=== PATIENT | female | born 1985 | race Caucasian/White ===

== ENCOUNTER 2021-02-12 02:53 | Emergency (ER) | payer SELFPAY ==
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
[2021-02-12 04:41] VITALS: TEMP 98.1
[2021-02-12 04:42] VITALS: BP 143/91; O2SAT 99
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
== END 2021-02-12 04:34 | disposition home or self-care (01) ==
LOC: ER 02:53
DX: S02.2XXA Fracture of nasal bones, initial encounter for closed fracture (principal); Y04.2XXA Assault by strike against or bumped into by another person, initial encounter; Z88.1 Allergy status to other antibiotic agents
CPT/HCPCS: 70450; 70486; 76377; 99284

== ENCOUNTER 2022-08-11 18:15 | Emergency (ER) | payer OTHER ==
--- OUTSIDE RECORDS SUMMARY | 2022-08-11 18:21 | XMS REPORT | Continuity of Care Document ---
:1985 Author Organization [facility] t Address [address] [facility] [place] [address] Care Team Providers Name Role Phone Patricia Cardenas Primary Care Physician [phone] PATRICIA BOURNE Attending Clinician Unavailable Valerie Burr Attending Clinician Unavailable JONN VASQUEZ Attending Clinician Unavailable Maria Teresa Garcia DO Attending Clinician Jonn Vasquez MD Attending Clinician Patricia Cardenas Attending Clinician [phone] Prosper Christiansen MD Attending Clinician Doctor Unassigned, [place] [employer] Attending Clinician Unavailable LILIANA BELL Attending Clinician Unavailable Ultrasound, Ang-M[facility] Attending Clinician Unavailable Liliana Bell MD Attending Clinician [phone] ABBY AKBAR Attending Clinician Unavailable Abby Akbar MD Attending Clinician JAISON LEO Attending Clinician Unavailable Jaison Leo DO Attending Clinician Britney Pritchett CNM Attending Clinician Only, Ang Db Test Attending Clinician Unavailable Ebragwendolyn MARKET RESEARCH ASSOCIATE, Rania Attending Clinician FABI SULLIVAN Attending Clinician Unavailable Provider, [facility] Attending Clinician Unavailable Chris MARKET RESEARCH ASSOCIATE, Adrianna Attending Clinician CHRIS, ADRIANNA Attending Clinician Unavailable Cherrie TORREZ, Neris Tate Attending Clinician Unavailable Geovanna Arambula MD Attending Clinician GEOVANNA ARAMBULA Attending Clinician Unavailable CHIRAG GARCIA Attending Clinician Unavailable AURE DELGADILLO Attending Clinician Unavailable JACKSON TAN Attending Clinician Unavailable JACKSON TAN Attending Clinician Unavailable JONN VASQUEZ Admitting Clinician Unavailable Jonn Vasquez MD Admitting Clinician ABBY AKBAR Admitting Clinician Unavailable Abby Akbar MD Admitting Clinician JAISON LEO Admitting Clinician Unavailable AURE DELGADILLO Admitting Clinician Unavailable Payers Payer Name Policy Type Policy Number Effective Date Expiration Date Deo garcia [employer] [id number] 2021 OUT OF NETWORK 00:00:00 [place] [facility] [id number] 2022 00:00:00 [facility] [id number] 2022 SHELTER 00:00:00 [facility] [id number] 2018 MEDICAID 00:00:00 Problems Condition Condition Condition Status Onset Resolution Last Treating Co mments Source Name Details Category Date Date Treatment Clinician Date Abnormal Abnormal Disease Active Overview: Un james quad quad 1-09 Formattin ity of screen screen 00:00: g of this [place] 00 note Medical might be Branch different from the original. pendign detailed usg and genetics History of History of Disease Active 2021-06 U nivers 2-09 ity of 00:00: [place] 00 Medical Branch Inmate in Inmate in Disease Active 2021-06 Uni vers correction correction 07-11 it y of al al 00:00: [place] facility facility 00 Medica l Branch Anemia of Anemia of Disease Active Uni vers mother in mother in 9-10 [place]y of , , [place] antepartum antepartum 00 Me dical Branch Disease Active U nivers care and care and 9-10 ity of examinatio examinatio [place] 00 Medical immediatel immediatel Br anch y after y after delivery delivery History of History of Disease Active U nivers pre-eclamp pre-eclamp 8-11 it y of deven deven 00:00: [place] 00 Medical Branch Preeclamps Preeclamps Disease Active U nivers ia ia 8-11 ity of 00:00: [place] 00 Medical Branch Multiparit Multiparit Disease Active 2018- U nivers y y 7-16 ity of 00:00: [place] 00 Medical Branch Abnormal Abnormal Disease Active Overview: Un james maternal maternal 11-18 Formattin ity of glucose glucose 00:00: g [...] the original. tolac 73.8% (C.I. 69.5%, 77.6%) History of History of Disease Active Overview : Univers 6-04 Formattin ity of section section 00:00: g of this [place] 00 note Medical might be Branch different from the original. X 1 with last baby Short Short Disease Active Univers interval interval 6-04 ity of between between 00:00: [place] pregnancie pregnancie 00 Me dical s s Branch affecting affecting in second in second trimester, trimester, antepartum antepartum Circumvall Circumvall Disease Active Overview : Univers ate ate 4-19 Formattin ity of placenta placenta 00:00: g of this [place] 00 note Medical might be Branch different from the original. Prior ASCUS with ASCUS with Disease Active Overview : Univers positive positive - Formattin ity of high risk high risk 00:00: g of this [place] HPV HPV 00 note Medical cervical cervical might be Bran ch different from the original. Occurred 04/17/17 per external records (referred for colpo on 07/14/17) ASCUS with ASCUS with Disease Active Overview : Univers positive positive -12 Formattin ity of high risk high risk 00:00: g of this [place] HPV HPV 00 note Medical cervical cervical might be Bran ch different from the original. Occurred 04/17/17 per external records (referred for colpo on 07/14/17) Supervisio Supervisio Disease Active U nivers n of high n of high 1-30 ity of risk risk 00:00: [place] , , 00 Me dical antepartum antepartum Br anch Obesity in Obesity in Disease Active U nivers 1-30 ity of 00:00: [place] [address] Medical Branch Tobacco Tobacco Disease Active Univers use during use during 1-30 it y of , , [place] antepartum antepartum 00 Me dical Branch Generalize Generalize Disease Active U nivers d anxiety d anxiety 1-30 ity of disorder disorder 00:00: [place] [address] Medical Branch Bipolar 1 Bipolar 1 Disease Active Uni vers disorder disorder 1-30 ity of 00:00: [address] Branch No known No known Disease Unive rs active active ity of problems problems [facility] Allergies, Adverse Reactions, Alerts Allergy Allergy Status Severity Reaction(s) Onset Inactive Treating Comm ents Source Name Type Date Date Clinician SULFAMET DRUG Active Rash 2021-06 Univers HOXAZOLE 2-09 ity of -TRIMETH 00:00: [place] OPRIM 00 Medical Branch Sulfamet Propensi Active Rash 2021-06 Univer s hoxazole ty to 2-09 ity of -Trimeth adverse 00:00: [place] oprim reaction 00 Medical s Branch Sulfa Propensi Active Rash Univers (Sulfona ty to 9-10 ity of mide adverse 00:00: [place] Antibiot reaction 00 Medica l ics) s Branch SULFA Drug Active Rash Univers (SULFONA Class 9-10 ity of MIDE 00:00: [place] ANTIBIOT 00 Medical ICS) Branch Sulfa Propensi Active Rash Univers (Sulfona ty to 9-10 ity of mide adverse 00:00: [place] Antibiot reaction 00 Medica l ics) s Branch NO KNOWN Drug Active Univers ALLERGIE Class ity of S [facility] Social History Social Habit Start Date Stop Date Quantity Comments Source ASSERTION 2022-03-20 [facility] 00:00:00 [facility] History of Cigarette Smoker Universi ty of tobacco use [facility] Exposure to 2022-07-23 2022-08-02 Not sure [facility] SARS-CoV-2 00:00:00 10:07:00 [facility] (event) [place] Alcohol intake 2022-05-10 2022-05-10 Ex-drinker [facility] 00:00:00 00:00:00 (finding) [facility] Tobacco Comment 2022-05-10 2022-05-10 Stopped Un iversity of 00:00:00 00:00:00 [facility] Tobacco use and 2022-05-10 2022-05-10 Former smokeless Uni versity of exposure 00:00:00 00:00:00 tobacco user [facility] Sex Assigned At [birth year] Universit y of 00:00:00 00:00:00 [facility] Smoking Status Start Date Stop Date Source Ex-smoker 2022-05-10 00:00:00 2022-05-10 00:00:[facility] Current every day 2015[facility]09[facility]21 [facility] Medications Ordered Filled Start Stop Current Ordering Indication Dosage Frequency Signature Comments Components Source Medication Medication Date Date Medication? Clinician (SIG) Name Name fluconazole 2022- No 200mg 200 mg, U nivers (DIFLUCAN) 08-08 Oral, ity of tablet 200 23:30: 23:29 ONCE, 1 [place] mg 00 :00 dose, On Medical Natalie 08/08/22 Branch at 1730, CAITLYN
Re ason for Anti-Infec tive: Documented Infection< br>Documen noemi Infection Site: Urine
D uration of Therapy: Other (see Comments) Nitrofurant 2022- No 100mg 100 mg, U nivers oin&Nit. 08-08 Oral, ity of Macrocryst 23:30: 23:29 ONCE, 1 [place] (MACROBID) 00 :00 dose, On Medic al 100 mg Natalie 08/08/22 Branch capsule 100 at 1730, mg Routine
Reason for Anti-Infec tive: Documented Infection< br>Documen noemi Infection Site: Urine
D uration of Therapy: Other (see Comments) acetaminoph 2022- No 650mg 650 mg, U nivers en 08-08- Oral, ity of (TYLENOL) 21:15: 20:25 ONCE, 1 [place] tablet 650 00 :00 dose, On Medic al mg Natalie 08/08/22 Branch at 1515, Routine Nitrofurant 2022-0 Yes [id number] 100mg Take 1 Univers oin&Nit. 3-09 capsule by ity o f Macrocryst 00:00: mouth in [place] 100 mg 00 the Medical capsule morning Branch and 1 capsule in the evening. Nitrofurant 0 Yes [id number] 100mg Take 1 Univers oin&Nit. 3-09 capsule by ity o f Macrocryst 00:00: mouth in [place] 100 mg 00 the Medical capsule morning Branch and 1 capsule in the evening. acetaminoph 2022- No 650mg 650 mg, U nivers en 06-25 Oral, ity of (TYLENOL) 06:15: 05:22 ONCE, 1 [place] tablet 650 00 :00 dose, On Medic al mg e Branch 06/25/22 at 0015, Routine cefTRIAXone Yes 1000mg 1,000 mg, Univers (ROCEPHIN) 06-06 Slow IV ity of injection 20:00: [place] Q24H [place] 1,000 mg 00 ABX, First Medic al dose on Branch Natalie 06/06/22 at 1400, Until Discontinu ed, CAITLNY<br&gt ;Reason for Anti-Infec tive: Empiric Therapy for Suspected Infection acetaminoph 2022- No 1000mg 1,000 mg, Univers en 06-06 Oral, ity of (TYLENOL) 18:45: 18:39 ONCE, 1 [place] tablet 00 :00 dose, On Medical 1,000 mg Natalie 06/06/22 Branc h at 1245, CAITLYN NaCl 0.9% 2022- No 1000mL at 999 Uni vers (NS) bolus 06-06- mL/hr, ity of infusion 17:15: 19:40 1,000 mL, [place] 1,000 mL 00 :00 IV Medical Infusion, Branch ONCE, 1 dose, On Natalie 06/06/22 at 1115, STAT cephALEXin 2021-06- Yes [id number] 500mg Take 1 Univers (KEFLEX) 2-13 12-24 capsule by ity of 500 mg 00:00: 05:59 mouth 4 [place] capsule 00 :00 (four) Medical times Branch daily for 10 days. cephALEXin 2021-06- Yes [id number] 500mg Take 1 Univers (KEFLEX) 2-13 12-24 capsule by ity of 500 mg 00:00: 05:59 mouth 4 [place] capsule 00 :00 (four) Medical times Branch daily for 10 days. ampicillin 2021-06- Yes [id number] 500mg Take 1 Univers 500 mg 2-12 12-23 capsule by ity of capsule 00:00: 05:59 mouth 4 [place] 00 :00 (four) Medical times Branch daily for 10 days. ampicillin 2021-06- Yes [id number] 500mg Take 1 Univers 500 mg 2-12 12-23 capsule by ity of capsule 00:00: 05:59 mouth 4 [place] 00 :00 (four) Medical times Branch daily for 10 days. ampicillin 2021-06- Yes [id number] 500mg Take 1 Univers 500 mg 2-12 12-23 capsule by ity of capsule 00:00: 05:59 mouth 4 [place] 00 :00 (four) Medical times Branch daily for 10 days. ampicillin 2021-06- Yes [id number] 500mg Take 1 Univers 500 mg 2-12 12-23 capsule by ity of capsule 00:00: 05:59 mouth 4 [place] 00 :00 (four) Medical times Branch daily for 10 days. ampicillin 2021-06- No [id number] 500mg Take 1 Univers 500 mg 2-12 12-13 capsule by ity of capsule 00:00: 00:00 mouth 4 [place] 00 :00 (four) Medical times Branch daily for 10 days. ampicillin 2021-06- No [id number] 500mg Take 1 Univers 500 mg 2-12 12-13 capsule by ity of capsule 00:00: 00:00 mouth 4 [place] 00 :00 (four) Medical times Branch daily for 10 days. ampicillin 2021-06- No [id number] 500mg Take 1 Univers 500 mg 07-14-13 capsule by ity of capsule 00:00: 00:00 mouth 4 [place] 00 :00 (four) Medical times Branch daily for 10 days. No known 2021-06 No No known Unive rs medications 2-09 medication it y of 10:10: s [place] 30 Medical Branch PNV 67-iron 2021-06 Yes [id number] 1{each} Take 1 Univers ps-folate 2-09 Each by ity of no.1-dha 00:00: mouth [place] (VITAFOL 00 daily. Medical ULTRA) 29 Branch mg iron- 1 mg-200 mg Cap PNV 67-iron 2021-06 Yes [id number] 1{each} Take 1 Univers ps-folate 2-09 Each by ity of no.1-dha 00:00: mouth [place] (VITAFOL 00 daily. Medical ULTRA) 29 Branch mg iron- 1 mg-200 mg Cap PNV 67-iron 2021-06 Yes [id number] 1{each} Take 1 Univers ps-folate 2-09 Each by ity of no.1-dha 00:00: mouth [place] (VITAFOL 00 daily. Medical ULTRA) 29 Branch mg iron- 1 mg-200 mg Cap PNV 67-iron 2021-06 Yes [id number] 1{each} Take 1 Univers ps-folate 2-09 Each by ity of no.1-dha 00:00: mouth [place] (VITAFOL 00 daily. Medical ULTRA) 29 Branch mg iron- 1 mg-200 mg Cap PNV 67-iron 2021-06 Yes [id number] 1{each} Take 1 Univers ps-folate 2-09 Each by ity of no.1-dha 00:00: mouth [place] (VITAFOL 00 daily. Medical ULTRA) 29 Branch mg iron- 1 mg-200 mg Cap PNV 67-iron 2021-06 Yes [id number] 1{each} Take 1 Univers ps-folate 2-09 Each by ity of no.1-dha 00:00: mouth [place] (VITAFOL 00 daily. Medical ULTRA) 29 Branch mg iron- 1 mg-200 mg Cap PNV 67-iron 2021-06 Yes [id number] 1{each} Take 1 Univers ps-folate 2-09 Each by ity of no.1-dha 00:00: mouth [place] (VITAFOL 00 daily. Medical ULTRA) 29 Branch mg iron- 1 mg-200 mg Cap PNV 67-iron 2021-06 Yes [id number] 1{each} Take 1 Univers ps-folate 2-09 Each by ity of no.1-dha 00:00: mouth [place] (VITAFOL 00 daily. Medical ULTRA) 29 Branch mg iron- 1 mg-200 mg Cap PNV 67-iron 2021-06 Yes [id number] 1{each} Take 1 Univers ps-folate 2-09 Each by ity of no.1-dha 00:00: mouth [place] (VITAFOL 00 daily. Medical ULTRA) 29 Branch mg iron- 1 mg-200 mg Cap PNV 67-iron 2021-06 Yes [id number] 1{each} Take 1 Univers ps-folate 2-09 Each by ity of no.1-dha 00:00: mouth [place] (VITAFOL 00 daily. Medical ULTRA) 29 Branch mg iron- 1 mg-200 mg Cap PNV 67-iron 2021-06 Yes [id number] 1{each} Take 1 Univers ps-folate 2-09 Each by ity of no.1-dha 00:00: mouth [place] (VITAFOL 00 daily. Medical ULTRA) 29 Branch mg iron- 1 mg-200 mg Cap PNV 67-iron 2021-06 Yes [id number] 1{each} Take 1 Univers ps-folate 2-09 Each by ity of no.1-dha 00:00: mouth [place] (VITAFOL 00 daily. Medical ULTRA) 29 Branch mg iron- 1 mg-200 mg Cap PNV 67-iron 2021-06 Yes [id number] 1{each} Take 1 Univers ps-folate 2-09 Each by ity of no.1-dha 00:00: mouth [place] (VITAFOL 00 daily. Medical ULTRA) 29 Branch mg iron- 1 mg-200 mg Cap PNV 67-iron 2021-06 Yes [id number] 1{each} Take 1 Univers ps-folate 2-09 Each by ity of no.1-dha 00:00: mouth [place] (VITAFOL 00 daily. Medical ULTRA) 29 Branch mg iron- 1 mg-200 mg Cap PNV 67-iron 2021-06 Yes [id number] 1{each} Take 1 Univers ps-folate 2-09 Each by ity of no.1-dha 00:00: mouth [place] (VITAFOL 00 daily. Medical ULTRA) 29 Branch mg iron- 1 mg-200 mg Cap PNV 67-iron 2021-06 Yes [id number] 1{each} Take 1 Univers ps-folate 2-09 Each by ity of no.1-dha 00:00: mouth [place] (VITAFOL 00 daily. Medical ULTRA) 29 Branch mg iron- 1 mg-200 mg Cap PNV 67-iron 2021-06 Yes [id number] 1{each} Take 1 Univers ps-folate 2-09 Each by ity of no.1-dha 00:00: mouth [place] (VITAFOL 00 daily. Medical ULTRA) 29 Branch mg iron- 1 mg-200 mg Cap PNV 67-iron 2021-06 Yes [id number] 1{each} Take 1 Univers ps-folate 2-09 Each by ity of no.1-dha 00:00: mouth [place] (VITAFOL 00 daily. Medical ULTRA) 29 Branch mg iron- 1 mg-200 mg Cap PNV 67-iron 2021-06 Yes [id number] 1{each} Take 1 Univers ps-folate 2-09 Each by ity of no.1-dha 00:00: mouth [place] (VITAFOL 00 daily. Medical ULTRA) 29 Branch mg iron- 1 mg-200 mg Cap PNV 67-iron 2021-06 Yes [id number] 1{each} Take 1 Univers ps-folate 2-09 Each by ity of no.1-dha 00:00: mouth [place] (VITAFOL 00 daily. Medical ULTRA) 29 Branch mg iron- 1 mg-200 mg Cap PNV 67-iron 2021-06 Yes [id number] 1{each} Take 1 Univers ps-folate 2-09 Each by ity of no.1-dha 00:00: mouth [place] (VITAFOL 00 daily. Medical ULTRA) 29 Branch mg iron- 1 mg-200 mg Cap terconazole 2021-06- No [id number] 80mg Insert 1 Univers 80 mg 07-11 Suppositor ity of vaginal 00:00: 05:59 y into [place] suppository 00 :00 vagina at [facility] bedtime Branch for 3 days. terconazole 2021-06- No [id number] 80mg Insert 1 Univers 80 mg 07-11 Suppositor ity of vaginal 00:00: 05:59 y into [place] suppository 00 :00 vagina at [facility] for 3 days. terconazole 2021-06- No [id number] 80mg Insert 1 Univers 80 mg 07-11 Suppositor ity of vaginal 00:00: 05:59 y into [place] suppository 00 :00 vagina at [facility] for 3 days. terconazole 2021-06- No [id number] 80mg Insert 1 Univers 80 mg 07-11 Suppositor ity of vaginal 00:00: 05:59 y into [place] suppository 00 :00 vagina at [facility] for 3 days. terconazole 2021-06- No [id number] 80mg Insert 1 Univers 80 mg 07-11 Suppositor ity of vaginal 00:00: 05:59 y into [place] suppository 00 :00 vagina at [facility] for 3 days. terconazole 2021-06- No [id number] 80mg Insert 1 Univers 80 mg 07-11 Suppositor ity of vaginal 00:00: 05:59 y into [place] suppository 00 :00 vagina at [facility] for 3 days. terconazole 2021-06- No [id number] 80mg Insert 1 Univers 80 mg 07-11 Suppositor ity of vaginal 00:00: 05:59 y into [place] suppository 00 :00 vagina at [facility] for 3 days. docusate 2019- Yes [id number] 240mg Take 1 U nivers calcium 240 8-12 capsule by it y of mg capsule 00:00: mouth once [place] 00 daily as Medical needed for Branch Constipati on. ibuprofen 2019- Yes [id number] 600mg Take 1 Univers 600 mg 8-12 tablet by ity of tablet 00:00: mouth [place] 00 every 6 Medical (six) Branch hours. simethicone 2019- Yes [id number] 160mg Take 2 Univers 80 mg 8-12 tablets by ity of chewable 00:00: mouth [place] tablet 00 after Medical meals and Branch at bedtime as needed for Gas. docusate 2018- Yes [id number] 240mg Take 1 U nivers calcium 240 8-12 capsule by it y of mg capsule 00:00: mouth once [place] 00 daily as Medical needed for Branch Constipati on. ibuprofen 20190 Yes [id number] 600mg Take 1 Univers 600 mg 8-12 tablet by ity of tablet 00:00: mouth [place] 00 every 6 Medical (six) Branch hours. simethicone 20190 Yes [id number] 160mg Take 2 Univers 80 mg 8-12 tablets by ity of chewable 00:00: mouth [place] tablet 00 after Medical meals and Branch at bedtime as needed for Gas. docusate Yes [id number] 240mg Take 1 U nivers calcium 240 8-12 capsule by it y of mg capsule 00:00: mouth once [place] 00 daily as Medical needed for Branch Constipati on. ibuprofen 0 Yes [id number] 600mg Take 1 Univers 600 mg 8-12 tablet by ity of tablet 00:00: mouth [place] 00 every 6 Medical (six) Branch hours. simethicone Yes [id number] 160mg Take 2 Univers 80 mg 8-12 tablets by ity of chewable 00:00: mouth [place] tablet 00 after Medical meals and Branch at bedtime as needed for Gas. docusate Yes [id number] 240mg Take 1 U nivers calcium 240 8-12 capsule by it y of mg capsule 00:00: mouth once [place] 00 daily as Medical needed for Branch Constipati on. ibuprofen 0 Yes [id number] 600mg Take 1 Univers 600 mg 8-12 tablet by ity of tablet 00:00: mouth [place] 00 every 6 Medical (six) Branch hours. simethicone 0 Yes [id number] 160mg Take 2 Univers 80 mg 8-12 tablets by ity of chewable 00:00: mouth [place] tablet 00 after Medical meals and Branch at bedtime as needed for Gas. docusate 0 Yes [id number] 240mg Take 1 U nivers calcium 240 8-12 capsule by it y of mg capsule 00:00: mouth once [place] 00 daily as Medical needed for Branch Constipati on. ibuprofen Yes [id number] 600mg Take 1 Univers 600 mg 8-12 tablet by ity of tablet 00:00: mouth [place] 00 every 6 Medical (six) Branch hours. simethicone 0 Yes [id number] 160mg Take 2 Univers 80 mg 8-12 tablets by ity of chewable 00:00: mouth [place] tablet 00 after Medical meals and Branch at bedtime as needed for Gas. docusate Yes [id number] 240mg Take 1 U nivers calcium 240 8-12 capsule by it y of mg capsule 00:00: mouth once [place] 00 daily as Medical needed for Branch Constipati on. ibuprofen Yes [id number] 600mg Take 1 Univers 600 mg 8-12 tablet by ity of tablet 00:00: mouth [place] 00 every 6 Medical (six) Branch hours. simethicone Yes [id number] 160mg Take 2 Univers 80 mg 8-12 tablets by ity of chewable 00:00: mouth [place] tablet 00 after Medical meals and Branch at bedtime as needed for Gas. docusate Yes [id number] 240mg Take 1 U nivers calcium 240 8-12 capsule by it y of mg capsule 00:00: mouth once [place] 00 daily as Medical needed for Branch Constipati on. ibuprofen Yes [id number] 600mg Take 1 Univers 600 mg 8-12 tablet by ity of tablet 00:00: mouth [place] 00 every 6 Medical (six) Branch hours. simethicone Yes [id number] 160mg Take 2 Univers 80 mg 8-12 tablets by ity of chewable 00:00: mouth [place] tablet 00 after Medical meals and Branch at bedtime as needed for Gas. docusate Yes [id number] 240mg Take 1 U nivers calcium 240 8-12 capsule by it y of mg capsule 00:00: mouth once [place] 00 daily as Medical needed for Branch Constipati on. ibuprofen Yes [id number] 600mg Take 1 Univers 600 mg 8-12 tablet by ity of tablet 00:00: mouth [place] 00 every 6 Medical (six) Branch hours. simethicone Yes [id number] 160mg Take 2 Univers 80 mg 8-12 tablets by ity of chewable 00:00: mouth [place] tablet 00 after Medical meals and Branch at bedtime as needed for Gas. docusate 2022- No [id number] 240mg Take 1 Univers calcium 240 8-12 12-09 capsule by i ty of mg capsule 00:00: 00:00 mouth once [place] 00 :00 daily as Medical needed for Branch Constipati on. ibuprofen 2021- No [id number] 600mg Take 1 Univers 600 mg 805-10 tablet by ity of tablet 00:00: 00:00 mouth [place] 00 :00 every 6 Medical (six) Branch hours. simethicone 2021- No [id number] 160mg Take 2 Univers 80 mg 8 12- tablets by ity of chewable 00:00: 00:00 mouth [place] tablet 00 :00 after Medical meals and Branch at bedtime as needed for Gas. terconazole Yes [id number] 1{appli Insert 1 Univers (TERAZOL 7) 3-20 cator} Applicator ity of 0.4 % 00:00: into [place] vaginal 00 vagina at Medical cream bedtime. [place] terconazole Yes [id number] 1{appli Insert 1 Univers (TERAZOL 7) 3-20 cator} Applicator ity of 0.4 % 00:00: into [place] vaginal 00 vagina at Medical cream bedtime. [place] terconazole Yes [id number] 1{appli Insert 1 Univers (TERAZOL 7) 3-20 cator} Applicator ity of 0.4 % 00:00: into [place] vaginal 00 vagina at Medical cream bedtime. [place] terconazole Yes [id number] 1{appli Insert 1 Univers (TERAZOL 7) 3-20 cator} Applicator ity of 0.4 % 00:00: into [place] vaginal 00 vagina at Medical cream bedtime. [place] terconazole Yes [id number] 1{appli Insert 1 Univers (TERAZOL 7) 3-20 cator} Applicator ity of 0.4 % 00:00: into [place] vaginal 00 vagina at Medical cream bedtime. [place] terconazole Yes [id number] 1{appli Insert 1 Univers (TERAZOL 7) 3-20 cator} Applicator ity of 0.4 % 00:00: into [place] vaginal 00 vagina at Medical cream bedtime. [place] terconazole Yes [id number] 1{appli Insert 1 Univers (TERAZOL 7) 3-20 cator} Applicator ity of 0.4 % 00:00: into [place] vaginal 00 vagina at Medical cream bedtime. [place] terconazole Yes [id number] 1{appli Insert 1 Univers (TERAZOL 7) 3-20 cator} Applicator ity of 0.4 % 00:00: into [place] vaginal 00 vagina at Medical cream bedtime. Branch terconazole 2021- No [id number] 1{appli Insert 1 Univers (TERAZOL 7) 3-20 12-09 cator} Applicator ity of 0.4 % 00:00: 00:00 into [place] vaginal 00 :00 vagina at Medical cream bedtime. Branch Yes [id number] 1{packe Take 1 Univers vit 3-13 t} Packet by ity of 33-iron-fol 00:00: mouth [place] ic-dha 00 daily. Medical ([facility] Branch + DHA) 29 mg iron-1 mg -250 mg combo pack Yes [id number] 1{packe Take 1 Univers vit 3-13 t} Packet by ity of 33-iron-fol 00:00: mouth [place] ic-dha 00 daily. Medical ([facility] Branch + DHA) 29 mg iron-1 mg -250 mg combo pack Yes [id number] 1{packe Take 1 Univers vit 3-13 t} Packet by ity of 33-iron-fol 00:00: mouth [place] ic-dha 00 daily. Medical ([facility] Branch + DHA) 29 mg iron-1 mg -250 mg combo pack Yes [id number] 1{packe Take 1 Univers vit 3-13 t} Packet by ity of 33-iron-fol 00:00: mouth [place] ic-dha 00 daily. Medical ([facility] Branch + DHA) 29 mg iron-1 mg -250 mg combo pack Yes [id number] 1{packe Take 1 Univers vit 3-13 t} Packet by ity of 33-iron-fol 00:00: mouth [place] ic-dha 00 daily. Medical ([facility] Branch + DHA) 29 mg iron-1 mg -250 mg combo pack Yes [id number] 1{packe Take 1 Univers vit 3-13 t} Packet by ity of 33-iron-fol 00:00: mouth [place] ic-dha 00 daily. Medical ([facility] Branch + DHA) 29 mg iron-1 mg -250 mg combo pack Yes [id number] 1{packe Take 1 Univers vit 3-13 t} Packet by ity of 33-iron-fol 00:00: mouth [place] ic-dha 00 daily. Medical ([facility] + DHA) 29 mg iron-1 mg -250 mg combo pack Yes [id number] 1{packe Take 1 Univers vit 3-13 t} Packet by ity of 33-iron-fol 00:00: mouth [place] ic-dha 00 daily. Medical ([facility] + DHA) 29 mg iron-1 mg -250 mg combo pack 2021- No [id number] 1{packe Take 1 Univers vit 3-13 12-09 t} Packet by ity of 33-[place] daily. Medical ([facility] + DHA) 29 mg iron-1 mg -250 mg combo pack Immunizations Ordered Filled Immunization Date Status Comments [facility] e Immunization Name Name TD 2018-11-17 Completed University of 00:00:00 [facility] TDAP 2018-11-17 Completed University of 00:00:00 [facility] TDAP 2018-11-17 Completed University of 00:00:00 [facility] TDAP 2018-11-17 Completed University of 00:00:00 [facility] TDAP 2018-11-17 Completed University of 00:00:00 [facility] TDAP 2018-11-17 Completed University of 00:00:00 [facility] TDAP 2018-11-17 Completed University of 00:00:00 [facility] TDAP 2018-11-17 Completed University of 00:00:00 [place] [facility] [place] TDAP 2018-11-17 Completed University of 00:00:00 [place] [facility] [place] TDAP 2018-11-17 Completed University of 00:00:00 [facility] TDAP 2018-11-17 Completed University of 00:00:00 [facility] TDAP 2018-11-17 Completed University of 00:00:00 [place] [facility] [place] TDAP 2018-11-17 Completed University of 00:00:00 [facility] TDAP 2018-11-17 Completed University of 00:00:00 [facility] TDAP 2018-11-17 Completed University of 00:00:00 [facility] TDAP 2018-11-17 Completed University of 00:00:00 [facility] TDAP 2018-11-17 Completed University of 00:00:00 [facility] TDAP 2018-11-17 Completed University of 00:00:00 [facility] TDAP 2018-11-17 Completed University of 00:00:00 [facility] TDAP 2018-11-17 Completed University of 00:00:00 [facility] TDAP 2018-11-17 Completed University of 00:00:00 [facility] TDAP 2018-11-17 Completed University of 00:00:00 [facility] TDAP 2018-11-17 Completed University of 00:00:00 [facility] TDAP 2018-11-17 Completed University of 00:00:00 [facility] TDAP 2018-11-17 Completed University of 00:00:00 [facility] TDAP 2018-11-17 Completed University of 00:00:00 [facility] TDAP 2018-11-17 Completed University of 00:00:00 [facility] TDAP 2018-11-17 Completed University of 00:00:00 [facility] TDAP 2018-11-17 Completed University of 00:00:00 [facility] MMR 2018-01-28 Completed University of 00:00:00 [facility] MMR 2018-01-28 Completed University of 00:00:00 [facility] MMR 2018-01-28 Completed University of 00:00:00 [facility] MMR 2018-01-28 Completed University of 00:00:00 [facility] MMR 2018-01-28 Completed University of 00:00:00 [facility] MMR 2018-01-28 Completed University of 00:00:00 [facility] MMR 2018-01-28 Completed University of 00:00:00 [facility] MMR 2018-01-28 Completed University of 00:00:00 [facility] MMR 2018-01-28 Completed University of 00:00:00 [facility] MMR 2018-01-28 Completed University of 00:00:00 [facility] MMR 2018-01-28 Completed University of 00:00:00 [facility] MMR 2018-01-28 Completed University of 00:00:00 [facility] MMR 2018-01-28 Completed University of 00:00:00 [facility] MMR 2018-01-28 Completed University of 00:00:00 [facility] MMR 2018-01-28 Completed University of 00:00:00 [facility] MMR 2018-01-28 Completed University of 00:00:00 [place] [facility] MMR 2018-01-28 Completed University of 00:00:00 [facility] MMR 2018-01-28 Completed University of 00:00:00 [facility] MMR 2018-01-28 Completed University of 00:00:00 [facility] MMR 2018-01-28 Completed University of 00:00:00 [facility] MMR 2018-01-28 Completed University of 00:00:00 [facility] MMR 2018-01-28 Completed University of 00:00:00 [facility] MMR 2018-01-28 Completed University of 00:00:00 [place] [facility] MMR 2018-01-28 Completed University of 00:00:00 [place] [facility] [place] MMR 2018-01-28 Completed University of 00:00:00 [facility] MMR 2018-01-28 Completed University of 00:00:00 [facility] MMR 2018-01-28 Completed University of 00:00:00 [facility] MMR 2018-01-28 Completed University of 00:00:00 [facility] MMR 2018-01-28 Completed University of 00:00:00 [facility] TDAP 2017-12-05 Completed University of 00:00:00 [facility] TDAP 2017-12-05 Completed University of 00:00:00 [facility] TDAP 2017-12-05 Completed University of 00:00:00 [facility] TDAP 2017-12-05 Completed University of 00:00:00 [facility] TDAP 2017-12-05 Completed University of 00:00:00 [facility] TDAP 2017-12-05 Completed University of 00:00:00 [facility] TDAP 2017-12-05 Completed University of 00:00:00 [facility] TDAP 2017-12-05 Completed University of 00:00:00 [facility] TDAP 2017-12-05 Completed University of 00:00:00 [place] [facility] TDAP 2017-12-05 Completed University of 00:00:00 [place] [facility] TDAP 2017-12-05 Completed University of 00:00:00 [place] [facility] TDAP 2017-12-05 Completed University of 00:00:00 [place] [facility] TDAP 2017-12-05 Completed University of 00:00:00 [facility] TDAP 2017-12-05 Completed University of 00:00:00 [facility] TDAP 2017-12-05 Completed University of 00:00:00 [place] [facility] TDAP 2017-12-05 Completed University of 00:00:00 [facility] TDAP 2017-12-05 Completed University of 00:00:00 [facility] TDAP 2017-12-05 Completed University of 00:00:00 [facility] TDAP 2017-12-05 Completed University of 00:00:00 [facility] TDAP 2017-12-05 Completed University of 00:00:00 [facility] TDAP 2017-12-05 Completed University of 00:00:00 [facility] TDAP 2017-12-05 Completed University of 00:00:00 [facility] TDAP 2017-12-05 Completed University of 00:00:00 [facility] TDAP 2017-12-05 Completed University of 00:00:00 [facility] TDAP 2017-12-05 Completed University of 00:00:00 [facility] TDAP 2017-12-05 Completed University of 00:00:00 [facility] TDAP 2017-12-05 Completed University of 00:00:00 [facility] TDAP 2017-12-05 Completed University of 00:00:00 [facility] TDAP 2017-12-05 Completed University of 00:00:00 [facility] Vital Signs Vital Name Observation Time Observation Value Comments Source Heart rate 2022-08-08 22:30:00 88 /min [facility] Oxygen saturation in 2022-08-08 22:30:00 100 /min [facility] Arterial blood by [facility] Pulse oximetry [place] Systolic blood 2022-08-08 19:53:00 120 mm[Hg] Univer sity of pressure [facility] Diastolic blood 2022-08-08 19:53:00 68 mm[Hg] Unive rsity of [facility] Body temperature 2022-08-08 19:53:00 36.56 Francisca [facility] Res[facility] rate 2022-08-08 19:53:00 18 /min [facility] Body height 2022-08-08 19:20:00 157.5 cm [facility] Body weight 2022-08-08 19:20:00 102.513 kg [facility] BMI 2022-08-08 19:20:00 41.34 kg/m2 [facility] Systolic blood 2022-08-02 16:07:00 109 mm[Hg] Univer sity of pressure [facility] Diastolic blood 2022-08-02 16:07:00 67 mm[Hg] Unive rsity of pressure [facility] Heart rate 2022-08-02 16:07:00 89 /min Universi ty of [place] [facility] Body temperature 2022-08-02 16:07:00 35.83 Francisca Univ ersity of [facility] Respiratory rate 2022-08-02 16:07:00 18 /min Univ ersity of [place] [facility] Body height 2022-08-02 16:07:00 157.5 cm Universi ty of [place] [facility] Body weight 2022-08-02 16:07:00 98.476 kg Universi ty of [place] [facility] BMI 2022-08-02 16:07:00 39.71 kg/m2 Universi ty of [facility] Systolic blood 2022-07-17 05:37:00 132 mm[Hg] Univer sity of pressure [facility] Diastolic blood 2022-07-17 05:37:00 79 mm[Hg] Unive rsity of pressure [facility] Heart rate 2022-07-17 05:37:00 87 /min Universi ty of [place] [facility] Body temperature 2022-07-17 05:37:00 36.83 Francisca Univ ersity of [place] [facility] Respiratory rate 2022-07-17 05:37:00 16 /min Univ ersity of [place] [facility] Body height 2022-07-17 05:37:00 157.5 cm Universi ty of [place] [facility] Body weight 2022-07-17 05:37:00 95.709 kg Universi ty of [place] [facility] BMI 2022-07-17 05:37:00 38.59 kg/m2 Universi ty of [place] [facility] Oxygen saturation in 2022-07-17 05:37:00 100 /min University Arterial blood by [facility] Pulse oximetry Branch Systolic blood 2022-07-05 16:18:00 122 mm[Hg] Univer sity of pressure [facility] Diastolic blood 2022-07-05 16:18:00 79 mm[Hg] Unive rsity of pressure [facility] Body temperature 2022-07-05 16:18:00 35.67 Francisca Univ ersity of [facility] Respiratory rate 2022-07-05 16:18:00 18 /min Univ ersity of [facility] Body height 2022-07-05 16:18:00 274.3 cm Universi ty of [facility] Body weight 2022-07-05 16:18:00 93.033 kg Universi ty of [facility] BMI 2022-07-05 16:18:00 12.36 kg/m2 Universi ty of [facility] Heart rate 2022-06-25 06:00:00 85 /min Universi ty of [facility] Oxygen saturation in 2022-06-25 06:00:00 100 /min University Arterial blood by [facility] Pulse oximetry Branch Body height 2022-06-25 05:04:00 157.5 cm Universi ty of [facility] Body weight 2022-06-25 05:04:00 91.173 kg Universi ty of [facility] BMI 2022-06-25 05:04:00 36.76 kg/m2 Universi ty of [facility] Systolic blood 2022-06-25 05:00:00 107 mm[Hg] Univer sity of pressure [facility] Diastolic blood 2022-06-25 05:00:00 83 mm[Hg] Unive rsity of pressure [facility] Systolic blood 2022-06-07 16:40:00 132 mm[Hg] Univer sity of pressure [facility] Diastolic blood 2022-06-07 16:40:00 81 mm[Hg] Unive rsity of pressure [facility] Heart rate 2022-06-07 16:40:00 74 /min Universi ty of [facility] Body temperature 2022-06-07 16:40:00 36.56 Francisca Univ ersity of [facility] Respiratory rate 2022-06-07 16:40:00 18 /min Univ ersity of [facility] Body height 2022-06-07 16:40:00 157.5 cm Universi ty of [facility] Body weight 2022-06-07 16:40:00 90.436 kg Universi ty of [facility] BMI 2022-06-07 16:40:00 36.47 kg/m2 Universi ty of [facility] Systolic blood 2022-06-06 19:05:36 127 mm[Hg] Univer sity of pressure [facility] Diastolic blood 2022-06-06 19:05:36 93 mm[Hg] Unive rsity of pressure [facility] Heart rate 2022-06-06 19:05:36 84 /min Universi ty of [place] [facility] Respiratory rate 2022-06-06 19:05:36 22 /min Univ ersity of [place] [facility] Oxygen saturation in 2022-06-06 19:05:36 91 /min University of Arterial blood by [facility] Pulse oximetry Branch Body temperature 2022-06-06 17:00:00 36.72 Francisca Univ ersity of [place] [facility] Body height 2022-06-06 16:58:00 157.5 cm Universi ty of [facility] Body weight 2022-06-06 16:58:00 88.451 kg Universi ty of [place] [facility] BMI 2022-06-06 16:58:00 35.67 kg/m2 Universi ty of [place] [facility] Systolic blood 2022-05-10 16:21:00 109 mm[Hg] Univer sity of pressure [facility] Diastolic blood 2022-05-10 16:21:00 81 mm[Hg] Unive rsity of pressure [facility] Heart rate 2022-05-10 16:21:00 93 /min Universi ty of [place] [facility] Body temperature 2022-05-10 16:21:00 35.94 Francisca Univ ersity of [place] [facility] Respiratory rate 2022-05-10 16:21:00 17 /min Univ ersity of [place] [facility] Body height 2022-05-10 16:21:00 158.8 cm Universi ty of [place] [facility] Body weight 2022-05-10 16:21:00 85.957 kg Universi ty of [place] [facility] BMI 2022-05-10 16:21:00 34.11 kg/m2 Universi ty of [place] [facility] Systolic blood 2022-05-10 16:00:00 109 mm[Hg] Univer sity of pressure [facility] Diastolic blood 2022-05-10 16:00:00 81 mm[Hg] Unive rsity of pressure [facility] Heart rate 2022-05-10 16:00:00 93 /min Universi ty of [place] [facility] Body temperature 2022-05-10 16:00:00 35.94 Francisca Univ ersity of [place] [facility] Respiratory rate 2022-05-10 16:00:00 17 /min [facility] Body height 2022-05-10 16:00:00 158.8 cm [facility] Body weight 2022-05-10 16:00:00 85.957 kg [facility] BMI 2022-05-10 16:00:00 34.11 kg/m2 [facility] Procedures Procedure Date / Time Performing Clinician Source Performed ADC CLC OR LCC ONLY - 2022-08-08 21:52:00 Jonn Vasquez [facility] URINALYSIS 2022-08-08 20:27:00 Jonn Vasquez [place] [facility] POCT URINALYSIS 2022-08-02 16:11:00 Patricia Bourne [facility] MISCELLANEOUS SENDOUT 2022-08-02 06:01:00 [facility] SECOND AND THIRD 2022-07-25 21:02:00 Patricia Bourne [facility] TRIMESTER ULTRASOUND Medical [facility] SECOND AND THIRD 2022-07-25 20:38:00 Patricia Bourne [facility] TRIMESTER ULTRASOUND Medical [facility] CONSENT/REFUSAL FOR 2022-07-17 05:13:28 Doctor Unassigned, No [facility] DIAGNOSIS AND TREATMENT Name [facility] POCT URINALYSIS 2022-07-05 16:22:00 Patricia Bourne [facility] ADC CLC OR LCC ONLY - 2022-06-25 05:21:00 Jonn Vasquez [facility] URINE CULTURE 2022-06-07 17:15:00 Patricia Bourne [facility] QUAD SCRN 2022-06-07 17:15:00 Patricia Bourne [facility] POCT URINALYSIS 2022-06-07 16:41:00 Patricia Bourne [facility] URINALYSIS 2022-06-06 17:29:00 Singer [facility] XR CHEST 1 VW 2022-06-06 17:19:02 Singer [facility] TROPONIN I 2022-06-06 17:07:00 Leo, [facility] COMP. METABOLIC PANEL 2022-06-06 17:07:00 [id number] Medical [place] CBC WITH DIFF 2022-06-06 17:07:00 Leo, [facility] POCT TEST 2022-05-10 00:00:00 Akinsipe Patricia C Uni versity of [facility] POCT URINALYSIS W/O 2022-05-10 00:00:00 Akinsipe, Patricia C Uni versity of [place] SPECIFIC GRAVITY [facility] POCT TEST 2022-05-10 00:00:00 Akinsipe, Patricia C Uni versity of [facility] POCT URINALYSIS W/O 2022-05-10 00:00:00 Akinsipe, Patricia C Uni versity of [facility] ASSIGNMENT OF BENEFITS 2021-01-29 17:00:25 Doctor Unassigned, No [facility] Branch Encounters Start End Encounter Admission Attending Care Care Encounter Source Date/Time Date/Time Type Type Clinicians Facility Department ID 2022-08-08 Outpatient X [facility] ESTEVAN [id number] Univers [facility] 2022-06-25 Outpatient P [facility] ESTEVAN [id number] Univers 02:45:[address] [facility] 2021-03-30 Emergency [facility] [id number] Univers 16:10:[address] [facility] 2022-08-30 2022-08-30 Outpatient R AKINSIPE, [facility] [id number] Univers 10:30:00 10:30:00 PATRICIA ity o [facility] 2022-08-28 2022-08-28 Outpatient R AKINSIPE, [facility] [id number] Univers 14:45:00 14:45:00 PATRICIA ity o [facility] 2022-08-16 2022-08-16 Outpatient R AKINSIPE, [facility] [id number] Univers 12:45:00 12:45:00 PATRICIA ity o [facility] 2022-08-09 2022-08-09 Outpatient SFA SFA [id number] Dinh 10:33:10 10:33:10 0310 F rFanky 2022-08-09 2022-08-09 Telephone Leno [facility] [id number] Univers 00:00:00 00:00:00 [facility] [id number] ity of [place] [id number] [facility] s [place] [id number] [facility] 161 Branch 2022-08-08 2022-08-08 Outpatient X JONN VASQUEZ [facility] ESTEVAN [id number] Univers 13:24:00 17:35:00 ity of [facility] 2022-08-08 2022-08-08 Emergency Maria Teresa Garcia [facility] 1.2.8 [id number] Univers 13:24:00 17:35:00 Jonn Vasquez [facility] [id number] ity of [place] [id number] [facility] [id number] [facility] 083 [place] 2022-08-02 2022-08-02 Telemedici Valerie Burr [facility] 1.2.8 40.114 [id number] Univers 11:15:00 11:15:00 ne Visit Patricia Bourne [employer] [id number] .10 ity of Prosper Christiansen REGIONAL [id number] [place] MATERNAL [id number] Med ical & CHILD [address] [place] [address] 2022-08-02 2022-08-02 Routine Tayla [facility] [id number] Univers 10:45:00 10:45:00 Patricia C STATIONARY FIREMAN [id number] ity of Visit REGIONAL [id number] Germán MATERNAL [id number] [facility] & CHILD [address] [place] [address] 2022-08-02 2022-08-02 Outpatient R TAYLA AZALMA DELIA [facility] [id number] Univers 10:45:00 10:31:35 PATRICIA ortegay o f [facility] 2022-08-02 2022-08-02 Orders Doctor GOLDEN [id number] Univers 00:00:00 00:00:00 Only Unassigned, ROHAN [id number] [facility] [id number] Germán as [id number] [facility] 009 [place] 2022-07-26 2022-07-26 Outpatient P [facility] [id number] Univers 09:45:00 09:45:00 ity [facility] 2022-07-25 2022-07-25 Outpatient P NAYLOR [facility] [id number] Univers 13:30:00 14:55:12 VERO it y of S, FORD [facility] 2022-07-25 2022-07-25 Second Language Tutor [facility]tras[facility] 1.2 .840.114 [id number] Univers 13:30:00 14:55:12 Visit Liliana Bell STATIONARY FIREMAN 350.1. 13.10 ity of [facility] [id number] Germán as MATERNAL [id number] [facility] ical & CHILD [address] [place] [address] 2022-07-19 2022-07-19 Outpatient P [facility] [id number] Univers 09:45:00 09:45:00 ity [facility] 2022-07-16 2022-07-16 Outpatient X ADUM, [facility] ESTEVAN [id number] Univers 23:24:00 23:54:00 ABBY verde [facility] 2022-07-16 2022-07-16 Emergency Adum, [facility] [id number] Univers 23:24:00 23:54:00 Abby Mariela AMALIA [id number] ity [facility] [id number] [facility] [id number] [facility] 083 [place] 2022-07-12 2022-07-12 Outpatient P [facility] [id number] Univers 09:30:00 09:30:00 ity [facility] 2022-07-05 2022-07-05 Outpatient R AKINSISIMONE, [facility] [id number] Univers 10:45:00 10:52:28 PATRICIA ortegay o f [facility] 2022-07-05 2022-07-05 Routine Akinpe, [facility] [id number] Univers 10:45:00 10:52:28 Patricia C STATIONARY FIREMAN [id number] ity of Visit REGIONAL [id number] Germán as MATERNAL [id number] [facility] & CHILD [address] [place] [address] 2022-06-24 2022-06-25 Outpatient P JONN VASQUEZ [facility] EST[facility] [id number] Univers 22:44:00 01:20:00 ity of [facility] 2022-06-24 2022-06-25 [facility] Jonn Vasquez [facility] 1.2.840.114 [id number] Univers 22:44:00 01:20:00 Encounter Lobo [place] [id number] ity of [id number] [place] [id number] [address] 2022-06-07 2022-06-07 [facility] [id number] Univers 10:30:00 10:57:22 PATRICIA ity o f [facility] 2022-06-07 2022-06-07 Routine [facility] [id number] Univers 10:30:00 10:57:22 Patricia C STATIONARY FIREMAN [id number] ity of Visit REGIONAL [id number] Germán as MATERNAL [id number] [facility] & [address] 2022-06-06 2022-06-06 Emergency X [facility] ERT [id number] Univers 11:00:00 13:40:00 JAISON jordanceleste [facility] 2022-06-06 2022-06-06 Emergency [facility] [id number] Univers 11:00:00 13:40:00 [facility] [id number] i ty of [id number] [place] [id number] [address] 2022-05-23 2022-05-23 Telephone [facility] 1.2.840.114 [id number] Univers 00:00:00 00:00:00 Patricia C STATIONARY FIREMAN [id number] ity of REGIONAL [id number] Germán as MATERNAL [phone] [facility] ical & CHILD [address] [place] [address] 2022-05-14 2022-05-14 [facility] [id number] Univers 00:00:00 00:00:00 Management Britney A STATIONARY FIREMAN [id number] ity of REGIONAL [id number] Germán as MATERNAL [phone] [facility] CHILD [address] [place] [address] 2022-05-13 2022-05-13 Telephone [facility] 1.2.840.114 [id number] Univers 00:00:00 00:00:00 Patricia C STATIONARY FIREMAN [id number] ity of REGIONAL [id number] Germán as MATERNAL [phone] [facility] CH[facility] [address] [place] [address] 2022-05-10 2022-05-10 Outpatient R AKINSIPE, [facility] [id number] Univers 08:00:00 11:00:34 PATRICIA ity o f [facility] 2022-05-10 2022-05-10 [facility] [id number] Univers 08:00:00 11:00:34 Patricia C STATIONARY FIREMAN [id number] ity of Visit REGIONAL [id number] Germán as MATERNAL [phone] [facility] CHILD [address] [place] [address] 2022-05-10 2022-05-10 [facility] [id number] Univers 10:00:00 10:30:00 Patricia C STATIONARY FIREMAN [id number] ity of Visit REGIONAL [id number] Germán as MATERNAL [phone] [facility] CHILD [address] [place] [address] 2022-05-10 2022-05-10 Outpatient R AKINSIPE, [facility] [id number] Univers 10:00:00 10:00:00 PATRICIA uriostegui [facility] 2022-05-10 2022-05-10 Outpatient R TAYLA [facility] [id number] Univers 10:00:00 10:00:00 PATRICIA uriostegui [facility] 2021-05-08 2021-05-08 Laboratory Only, Ang Db Test [facility] 1.2.8 40.114 [id number] Univers 10:32:34 10:47:34 Only Fabi [facility] 350.1.13.10 ity of [place] [id number] Germán as SANDOR?BLEA [phone] [address] MEDICAL OFFICE [facility] 2021-05-08 2021-05-08 Outpatient R SHAINA [facility] [id number] Univers 10:45:00 10:45:[address] [facility] 2021-05-08 2021-05-08 Letter Provider, [facility] [id number] Univers 00:00:00 00:00:00 (Out) Ang Db HEALTH 350.1.13.10 it y of Urgent Care [place] [id number] [place] SANDOR?BLEA [phone] [address] MEDICAL OFFICE [facility] 2021-03-22 2021-03-22 Laboratory Only, Ang Db Test [facility] 1.2.8 40.114 [id number] Univers 16:13:59 16:28:59 Only [facility] 350.1.13.10 ity of [place] [id number] Germán as Sandor?Blea [phone] [address] Medical Office [facility] 2021-03-22 2021-03-22 Outpatient R CHRIS [facility] [id number] Univers 16:15:00 16:15:[address] [facility] 2021-03-22 2021-03-22 Letter Only, Dirk [facility] [id number] Univers 00:00:00 00:00:00 (Out) Db Test Health 350.1.13.10 it y of [place] [id number] Germán as Sandor?Blea [phone] [address] Medical Office Building 2021-01-30 2021-01-30 Patient Doctor GOLDEN 1.2.840.114 [id number] Univers 00:00:00 00:00:00 Secure Msg Unassigned, ROHAN 350.1.13.10 ity of [facility] [id number] Germán as [phone] [address] 2021-01-30 2021-01-30 Letter GOLDEN Grier 1.2.840.114 [id number] Univers 00:00:00 00:00:00 (Out) Neris Bebeto ROHAN 350.1.13.10 it y of HOSPITAL 4.2.7.2.686 Germán as [phone] [address] 2021-01-29 2021-01-29 Laboratory Only, Ang Db Test [facility] 1.2.8 40.114 [id number] Univers 12:00:28 12:10:28 Only RalfMersimo [facility] 350.1.13.10 ity of [place] [id number] Germán as Sandor?Blea [phone] [address] Medical Office [facility] 2021-01-29 2021-01-29 Outpatient R RALF [facility] [id number] Univers 11:40:00 11:40:[address] [facility] 2021-01-29 2021-01-29 Orders Doctor GOLDEN 1.2.840.114 [id number] Univers 00:00:00 00:00:00 Only Unassigned, ROHAN 350.1.13.10 ity of [place] [facility] [id number] Germán as [phone] [address] 2020-12-05 2020-12-05 Outpatient R TAYLA [facility] [id number] Univers 16:00:00 16:00:00 PATRICIA uriostegui [facility] 2020-07-05 2020-07-05 Outpatient R JOSE [facility] [id number] Univers 10:30:00 10:30:[address] [facility] 2019-07-27 2019-07-27 Emergency X ELIE [facility] ERT [id number] Univers 00:54:33 03:55:00 AURE verde [facility] 2018-12-15 2018-12-15 Outpatient P JACKSON TAN [facility] [id number] Univers 10:30:00 11:22:[address] [facility] 2018-11-03 2018-11-03 Outpatient P DAYDAY [facility] [id number] Univers 10:00:00 10:26:57 VERO ortega y of SLILIANA [facility] Results Test Description Test Time Test Comments Results Result Comments Source POCT URINALYSIS W SPECIFIC GRAVITY 2022-08-02 16:12:00 Test Item Value Reference Range Interpretation Comme nts POCT U SP GRAV (test code = 3255) . 1.005-1.025 POCT PH U (test code = 3254) . 5-8 POCT U LEUK EST (test code = 3263) . Negative - Negative POCT U NIT (test code = 3262) . Negative - Negative POCT U PROT (test code = 3259) trace Negative - Negative POCT U GLU (test code = 3256) neg Negative - Negative POCT U KETONE (test code = 3258) . Negative - Negative POCT U UROBILI (test code = 3260) . 0.2-1 POCT U BILI (test code = 3261) . Negative - Negative POCT U BLD (test code = 3257) . Negative - Negative POCT U COLOR (test code = 3266) . POCT U APPEAR (test code = 3267) . [facility] [id number] 16:12:00 Test Item Value Reference Range Interpretation Comments POCT U SP GRAV (test code = 3255) . 1.005-1.025 POCT PH U (test code = 3254) . 5-8 POCT U LEUK EST (test code = 3263) . Negative - Negative POCT U NIT (test code = 3262) . Negative - Negative POCT U PROT (test code = 3259) trace Negative - Negative POCT U GLU (test code = 3256) neg Negative - Negative POCT U KETONE (test code = 3258) . Negative - Negative POCT U UROBILI (test code = 3260) . 0.2-1 POCT U BILI (test code = 3261) . Negative - Negative POCT U BLD (test code = 3257) . Negative - Negative POCT U COLOR (test code = 3266) . POCT U APPEAR (test code = 3267) . [facility] W SPECIFIC [id number] 16:22:00 Test Item Value Reference Range Interpretation Comments POCT U SP GRAV (test code = 3255) . 1.005-1.025 POCT PH U (test code = 3254) . 5-8 POCT U LEUK EST (test code = 3263) . Negative - Negative POCT U NIT (test code = 3262) . Negative - Negative POCT U PROT (test code = 3259) 1+ Negative - Negative POCT U GLU (test code = 3256) neg Negative - Negative POCT U KETONE (test code = 3258) . Negative - Negative POCT U UROBILI (test code = 3260) . 0.2-1 POCT U BILI (test code = 3261) . Negative - Negative POCT U BLD (test code = 3257) . Negative - Negative POCT U COLOR (test code = 3266) . POCT U APPEAR (test code = 3267) . [facility] [id number] 17:57:35 Test Item Value Reference Interpretation Comments Range RACE (test code = 1394429571) WEIGHT (test code = lbs 4200364080) GEST. AGE (test 16,1 code = 7788469720) INS. DEP (test code No = 5948835176) LMP (test code = 8224604315) US DATE (test code = 7322120944) PE DATE (test code = 4339240298) METHOD (test code = LMP 9822597263) MULT GEST (test No code = 0070934530) NTD HX (test code = No 5302166958) INITAL OR REPEAT Initial (test code = Testing 2613705301) SMOKER (test code = No 6665924001) RH (test code = 1495487105) INHIBIN (test code 110.5 pg/mL = 0535968241) AFP-MS (test code = 15.6 ng/mL 8493440366) ESTRIOL (test code 0.29 ng/mL = 9191042682) BHCG DOWNS (test mIU/mL code = 7321873511) AFP-MS MoM (test code = 0537560766) BHCG MoM (test code = 6869526955) INHIBIN MoM (test code = 2932793706) E3 MoM (test code = 8528295960) EQ AGE RSK (test equivalent to that of a code = 8342487527) 40.2 year old DS APR (test code = 1:289 9047960402) DS INTERP (test See Note The risk of Down code = 0206913830) syndrome is GREATER than the screen ing cut-off. If thegestational age is confirmed, coun selling regarding the r isks andbenefits of amniocentesis i s suggested. DS RSK (test code = ~ 1:94 The risk at 7340917539) mid-trimester i s approximately 1 :94 DS SCRN (test code Positive = 9443515227) TRISOMY 18 (test See Note These serum marker code = 2034985432) levels ar e not consistent with the pattern seen in Trisomy 18 pregnancies. Maternal serum screening will detectapproxima tely 60% of Trisomy 18 pregnancies. ES RSK (test code = ~ 1:376 The risk of Trisomy 18 4752175410) is approximatel y 1:376The Trisom y 18 cut-off is 1:45 ES SCRN (test code Negative = 1387441943) OSB INTERP (test See Note The materna l serum AFP code = 6803843623) result is NOT elevated for a of thisgestational age. The risk of an open neural tube def ect is less thanthe sc reening cut-off. OSB RSK (test code 1:68781 The risk of OSB is = 2812912936) equal to 1:117 00The OSB cut-off is 2.56 (1:104) OSB SCRN (test code Negative = 4119707732) INTERPRETATION P INTERPRETATIO N: SCREEN (test code = POSITIVE Follow -up for 9305181992) risk of Down s yndrome is suggested [facility] URINALYSIS W SPECIFIC [id number] 16:41:00 Test Item Value Reference Range Interpretation Comments POCT U SP GRAV (test code = 3255) . 1.005-1.025 POCT PH U (test code = 3254) . 5-8 POCT U LEUK EST (test code = 3263) . Negative - Negative POCT U NIT (test code = 3262) . Negative - Negative POCT U PROT (test code = 3259) Trace Negative - Negative POCT U GLU (test code = 3256) Neg Negative - Negative POCT U KETONE (test code = 3258) . Negative - Negative POCT U UROBILI (test code = 3260) . 0.2-1 POCT U BILI (test code = 3261) . Negative - Negative POCT U BLD (test code = 3257) .. Negative - Negative POCT U COLOR (test code = 3266) POCT U APPEAR (test code = 3267) [facility] URINALYSIS W/O SPECIFIC [id number] 16:25:00 Test Item Value Reference Range Interpretation Comments POCT PH U (test code = 3254) 8 mg/dl 5-8 POCT U LEUK EST (test code = 2+ Negative - Negative 3263) POCT U NIT (test code = 3262) negative Negative - Negative POCT U PROT (test code = 3259) trace Negative - Negative POCT U GLU (test code = 3256) negative Negative - Negative POCT U KETONE (test code = 3258) negative Negative - Negative POCT U BLD (test code = 3257) negative Negative - Negative [facility] [id number] 16:24:00 Test Item Value Reference Range Interpretation Comments POCT PREG (test code = 1605) Positive On board controls acceptable with C Yes Line (test code = 3574) POCT PREG LOT # (test code = 3575) POCT PREG TEST DATE (test code = 3576) [facility] URINALYSIS W/O SPECIFIC [id number] 16:04:00 Test Item Value Reference Range Interpretation Comments POCT PH U (test code = 3254) 8 mg/dl 5-8 POCT U LEUK EST (test code = 2+ Negative - Negative 3263) POCT U NIT (test code = 3262) NEGATIVE Negative - Negative POCT U PROT (test code = 3259) TRACE Negative - Negative POCT U GLU (test code = 3256) NEGATIVE Negative - Negative POCT U KETONE (test code = 3258) NEGATIVE Negative - Negative POCT U BLD (test code = 3257) NEGATIVE Negative - Negative [facility] [id number] 16:03:00 Test Item Value Reference Range Interpretation Comments POCT PREG (test code = 1605) Positive On board controls acceptable with C Yes Line (test code = 3574) POCT PREG LOT # (test code = 3575) POCT PREG TEST DATE (test code = 3576) [facility]
[2022-08-11] MEDS ORDERED: ACETAMINOPHEN 325 MG TABLET ONE (20:15)
[2022-08-11] MEDS ORDERED: AMOX/K CLAV 875 MG TAB ONE (20:16)
--- NOTE | 2022-08-23 17:06 | EDPHYS ---
Physician Documentation [facility] Name: Angela Ramsey Age: 37 yrs Sex: Female : 1985 Arrival Date: 08/11/2022 Time: 18:16 Bed DIS1 Private MD: ED Physician Sky York HPI: 08/11 18:48 This 37 yrs old Female presents to ER via EMS with complaints of Toothache. jmm 18:48 The patient presents with pain, swelling. Onset: The symptoms/episode began/occurred jmm gradually, 3 day(s) ago. Duration: The symptoms are continuous. Modifying factors: The symptoms are alleviated by nothing, the symptoms are aggravated by nothing. Associated signs and symptoms: Pertinent negatives: fever. This is a 37 year old female with no chronic medical conditions that presents to the ED with complaints of dental pain beginning approx 3 days ago. Denies fever. . Historical: - Allergies: 18:22 Bactrim; mb9 - Home Meds: 18:22 None [Active]; mb9 - PMHx: 18:22 None; mb9 - PSHx: 18:22 None; mb9 - Immunization history:: Adult Immunizations not up to date. ROS: 18:48 Constitutional: Negative for fever, chills, and weight loss. jmm 18:48 Cardiovascular: Negative for chest pain, palpitations, and edema, Respiratory: Negative for shortness of breath, cough, wheezing, and pleuritic chest pain. 18:48 ENT: Positive for dental pain. 18:48 All other systems are negative. Exam: 18:48 Constitutional: This is a well developed, well nourished patient who is awake, alert, jmm and in no acute distress. Head/Face: atraumatic. Eyes: EOMI, no conjunctival erythema appreciated 18:48 Neck: Trachea midline, Supple Chest/axilla: Normal chest wall appearance and motion. Cardiovascular: Regular rate and rhythm. No edema appreciated Respiratory: Normal respirations, no respiratory distress appreciated Abdomen/GI: Non distended Back: Normal ROM Skin: General appearance color normal MS/ Extremity: Moves all extremities, no obvious deformities appreciated, no edema noted to the lower extremities Neuro: Awake and alert Psych: Behavior is normal, Mood is normal, Patient is cooperative and pleasant 18:48 ENT: Dental exam: dental caries, that is moderate, specifically in the upper right first molar (#3) and lower right first molar (#30). Vital Signs: 18:21 BP 111 / 71; Pulse 98; Resp 18; Pulse Ox 99% ; mb9 18:25 Temp 97.8; Weight 99.79 kg; Height 5 ft. 6 in. ; mb9 18:25 Body Mass Index 35.51 (99.79 kg, 167.64 cm) mb9 MDM: 18:24 Patient medically screened. [facility] 18:51 Differential diagnosis: dental caries, gingivitis. Data reviewed: vital signs, nurses [facility] notes. I considered the following discharge prescriptions or medication management in the emergency department Medications were administered in the Emergency Department. See MAR. Counseling: I had a detailed discussion with the patient and/or guardian regarding: the historical points, exam findings, and any diagnostic results supporting the discharge/admit diagnosis, the need for outpatient follow up, to return to the emergency department if symptoms worsen or persist or if there are any questions or concerns that arise at home. ED course: I do not suspect abscess, lugwigs. Administered Medications: 20:16 Drug: Acetaminophen PO 650 mg Route: PO; mb9 20:16 Follow up: Response: No adverse reaction mb9 20:16 Drug: Amoxicillin PO 875 mg Route: PO; mb9 20:16 Follow up: Response: No adverse reaction mb9 Disposition: 19:09 Co-signature as Attending Physician, Sky York MD I reviewed the patient's care rt provided by the Advanced Practice Provider and agree with the diagnosis and treatment plan. Disposition Summary: 08/11/22 18:52 Discharge Ordered Location: Home [facility] Condition: Stable [facility] Diagnosis - Dental caries, unspecified [facility] Followup: [facility] - With: Rudy Ritchie DDS - When: 2 - 3 days - Reason: Recheck today's complaints, Continuance of care, Re-evaluation by your physician Discharge Instructions: - Discharge Summary Sheet [facility] - Dental Caries, Adult [facility] Forms: - Medication Reconciliation Form [facility] - Thank You Letter [facility] - Antibiotic Education [facility] - Prescription Opioid Use [facility] Prescriptions: - Peridex 0.12 % Mucous Membrane Mouthwash - swish 15 milliliter by BUCCAL route 2 times per day; 1 unit; Refills: 0, [facility] Product Selection Permitted - Amoxicillin 875 mg Oral Tablet - take 1 tablet by ORAL route every 12 hours for 10 days; 20 tablet; Refills: 0, jmm Product Selection Permitted Signatures: Bello Clark PA PA jmm Breneman, Mary Beth, RN RN mb9 Sky York MD MD rt
--- NOTE | 2022-08-23 17:06 | ER ---
Nurse's Notes [facility] Name: Angela Ramsey Age: 37 yrs Sex: Female : 1985 Arrival Date: 08/11/2022 Time: 18:16 Bed DIS1 Private MD: Diagnosis: Dental caries, unspecified Presentation: 08/11 18:21 Chief complaint: EMS states: "pt has a toothache that has been going on for two weeks mb9 and is getting worse. I'm 23 weeks .". Coronavirus screen: At this time, the client does not indicate any symptoms associated with coronavirus-19. Ebola Screen: No symptoms or risks identified at this time. Initial Sepsis Screen: Does the patient meet any 2 criteria? No. Patient's initial sepsis screen is negative. Does the patient have a suspected source of infection? No. Patient's initial sepsis screen is negative. Risk Assessment: Do you want to hurt yourself or someone else? Patient reports no desire to harm self or others. Onset of symptoms was August 11, 2022. 18:21 Method Of Arrival: EMS: [facility] mb9 18:21 Acuity: SCOTTIE 4 mb9 Triage Assessment: 18:45 Pain: Complains of pain in lower right first molar (#30) and upper right first molar mb9 (#3) Pain currently is 10 out of 10 on a pain scale. Quality of pain is described as throbbing. 18:45 Respiratory: Airway is patent Respiratory effort is even, unlabored, Respiratory mb9 pattern is regular, symmetrical. Derm: Skin is pink, warm \\T\\ dry. Historical: - Allergies: 18:22 Bactrim; mb9 - Home Meds: 18:22 None [Active]; mb9 - PMHx: 18:22 None; mb9 - PSHx: 18:22 None; mb9 - Immunization history:: Adult Immunizations not up to date. Assessment: 20:16 Reassessment: No changes from previously documented assessment. Patient and/or family mb9 updated on plan of care and expected duration. Pain level reassessed. Patient is alert, oriented x 3, equal unlabored respirations, skin warm/dry/pink. Patient states symptoms have improved. Vital Signs: 18:21 BP 111 / 71; Pulse 98; Resp 18; Pulse Ox 99% ; mb9 18:25 Temp 97.8; Weight 99.79 kg; Height 5 ft. 6 in. ; mb9 18:25 Body Mass Index 35.51 (99.79 kg, 167.64 cm) mb9 ED Course: 18:16 Patient arrived in ED. am2 18:21 Bello Clark PA is PHCP. m 18:21 Sky York MD is Attending Physician. m 18:22 Triage completed. mb9 18:23 Arm band placed on. mb9 18:52 Rudy Ritchie DDS is Referral Physician. jmm 20:16 No provider procedures requiring assistance completed. Patient did not have IV access mb9 during this emergency room visit. Administered Medications: 20:16 Drug: Acetaminophen PO 650 mg Route: PO; mb9 20:16 Follow up: Response: No adverse reaction mb9 20:16 Drug: Amoxicillin PO 875 mg Route: PO; mb9 20:16 Follow up: Response: No adverse reaction mb9 Medication: 18:23 VIS not applicable for this client. mb9 Outcome: 18:52 Discharge ordered by . [facility] 20:36 Discharged to home ambulatory. mb9 20:36 Condition: stable 20:36 Discharge instructions given to patient, Instructed on discharge instructions, follow up and referral plans. Demonstrated understanding of instructions, follow-up care, medications, Prescriptions given X 2. 20:36 Patient left the ED. mb9 Signatures: Bello Clark PA PA Diana Nguyen am2 Eileen Martinez RN RN mb9 Corrections: (The following items were deleted from the chart) 18:25 18:21 Chief complaint: EMS states: "pt has a toothache that has been going on for two mb9 weeks and is getting worse. I'm 25 weeks " mb9
== END 2022-08-11 20:36 | disposition home or self-care (01) ==
LOC: ER 18:15
DX: K02.9 Dental caries, unspecified (principal); Z88.1 Allergy status to other antibiotic agents
CPT/HCPCS: 99283

== ENCOUNTER 2023-05-03 14:37 | Emergency (ER) | payer OTHER ==
--- OUTSIDE RECORDS SUMMARY | 2023-05-03 14:48 | XMS REPORT | Continuity of Care Document ---
:1985 Author Organization [facility] t Address [address] [place] [address] Care Team Providers Name Role Phone Rimma Cardenas Primary Care Physician JONN VASQUEZ Attending Clinician Unavailable 2, [facility] Attending Clinician Unavailable Jonn Vasquez MD Attending Clinician Charmaine Edgar MD Attending Clinician Po, [facility] Main Attending Clinician Unavailable Keith Gaviria MD Attending Clinician Room, [facility] Attending Clinician Unavailable Doctor Unassigned, [place] Attending Clinician Unavailable CHARMAINE EDGAR Attending Clinician Unavailable ABBY AKBAR Attending Clinician Unavailable Abby Akbar MD Attending Clinician Odilia Price MD Attending Clinician ODILIA PRICE Attending Clinician Unavailable ODILIA PRICE Attending Clinician Unavailable Nurse, [facility] Attending Clinician Unavailable Rimma Cardenas Attending Clinician [phone] NERY PALACIOS Attending Clinician Unavailable 3, [facility] Attending Clinician Unavailable RIMMA BOURNE Attending Clinician Unavailable LINDA KAUR Attending Clinician Unavailable Ultrasound, [facility] Attending Clinician Unavailable Radha VENCES, Linda Cormier Attending Clinician Valerie Burr Attending Clinician Unavailable Maria Teresa Garcia DO Attending Clinician Prosper Christiansen MD Attending Clinician LILIANA BELL Attending Clinician Unavailable Dayday Natarajan MD, Liliana Attending Clinician [phone] SIMON LEO Attending Clinician Unavailable Simon Leo DO Attending Clinician Britney Pritchett CNM Attending Clinician Only, Dirk Db Test Attending Clinician Unavailable Ebragwendolyn MECHANISTAntwon Attending Clinician EBANTWON PANTOJA Attending Clinician Unavailable Provider, [facility] Attending Clinician Unavailable Denae Turcios Attending Clinician DENAE PEREZ Attending Clinician Unavailable Cherrie TORREZ, Neris Tate Attending Clinician Unavailable Diana Arambula MD Attending Clinician DIANA ARAMBULA Attending Clinician Unavailable CHIRAG GARCIA Attending Clinician Unavailable AURE DELGADILLO Attending Clinician Unavailable JACKSON TAN Attending Clinician Unavailable JACKSON TAN Attending Clinician Unavailable ODILIA PRICE Admitting Clinician Unavailable JONN VASQUEZ Admitting Clinician Unavailable Pedro VENCES, Jonn Diamond Admitting Clinician ABBY AKBAR Admitting Clinician Unavailable Abby Akbar MD Admitting Clinician Odilia Price MD Admitting Clinician CHARMAINE EDGAR Admitting Clinician Unavailable SIMON LEO Admitting Clinician Unavailable AURE DELGADILLO Admitting Clinician Unavailable Payers Payer Name Policy Type Policy Number Effective Date Expiration Date [employer] [id number] 2022 OUT OF NETWORK 00:00:00 [facility] [id number] 2022 00:00:00 [facility] [id number] 2022 HALFWAY 00:00:00 [facility] [id number] 2018 MEDICAID 00:00:00 Problems Condition Condition Condition Status Onset Resolution Last Treating Co mments Source Name Details Category Date Date Treatment Clinician Date Liveborn Liveborn Disease Active Unive rs infant, of infant, of 6-23 [place] y of [place] born in born in [facility] by vaginal by vaginal delivery delivery 36 weeks 36 weeks Disease Active Overview: Un james gestation gestation 6-15 Formattin i ty of of of 00:00: g of this 00 note [facility] might be Branch different from the original. Added automatic ally from request for surgery [id number] 37 weeks 37 weeks Disease Active Overview: Un james gestation gestation 6-15 Formattin i ty of of of 00:00: g of this 00 note [facility] might be Branch different from the original. Added automatic ally from request for surgery [id number] Gestationa Gestationa Disease Active U nivers l diabetes l diabetes 6-08 it y of 00:00: [facility] 35 weeks 35 weeks Disease Active Unive rs gestation gestation 6-08 ity of of of 00:00: 00 [facility] Elevated Elevated Disease Active Unive rs BP without BP without 6-08 it y of diagnosis diagnosis 00:[place] of of 00 Medical hypertensi hypertensi Br anch on on GDM, class GDM, class Disease Active U nivers A2 A2 6-08 ity of 00:00: [place] [facility] Disease Active Univers uterine uterine 5-22 [place] of contractio [place] [facility] third third Branch trimester, trimester, antepartum antepartum Abnormal Abnormal Disease Active Overview: Un james quad quad 1-09 Formattin ity of screen screen 00:00: g of this 00 note Medical might be Branch different from the original. pendign detailed usg and genetics History of History of Disease Active 2021-06 U nivers 2-09 ity of 00:00: [place] 00 Medical Branch Inmate in Inmate in Disease Active 2021-06 Uni vers correction correction 2-09 it y of al al 00:00: [place] facility facility 00 Medica l Branch Anemia of Anemia of Disease Active Uni vers mother in mother in 9-10 ity of , , 00:[place] antepartum antepartum 00 Me dical Branch Disease Active 2019- U nivers care and care and 9-10 ity of examinatio examinatio 00:[place] n 00 Medical immediatel immediatel Br anch y after y after delivery delivery History of History of Disease Active 2018- U nivers pre-eclamp pre-eclamp 8-11 it y of deven deven 00:00: [place] [facility] Preeclamps Preeclamps Disease Active 2018- U nivers ia ia 8-11 ity of 00:00: [place] 00 Medical Branch Multiparit Multiparit Disease Active U nivers y y 7-16 ity of 00:00: [place] [address] Medical Branch Abnormal Abnormal Disease Active Overview: [...] with last baby Short Short Disease Active 2018- Univers interval interval 6-04 ity of between [...] high 1-30 ity of risk risk 00:00: [place] , , 00 Me dical antepartum antepartum Br anch Obesity in Obesity in Disease Active U nivers 1-30 ity of 00:00: [place] [facility] Tobacco Tobacco Disease Active Univers use during use during 1-30 it y of , , 00:[place] antepartum antepartum 00 Me dical Branch Generalize Generalize Disease Active U nivers d anxiety d anxiety 1-30 ity of disorder disorder 00:00: [place] [facility] Bipolar 1 Bipolar 1 Disease Active Uni vers disorder disorder 1-30 ity of 00:00: [place] [address] Medical Branch No known No known Disease Unive rs active active ity of problems problems [facility] Allergies, Adverse Reactions, Alerts Allergy Allergy Status [...] ics) s Branch SULFA Drug Active Rash 2015-0 Univers (SULFONA Class 9-10 ity of MIDE 00:00: [place] ANTIBIOT 00 Medical ICS) Branch Sulfa Propensi Active Rash 2015-0 Univers (Sulfona ty to 9-10 ity of mide adverse 00:00: [place] Antibiot reaction 00 Medica l ics) s Branch NO KNOWN Drug Active Univers ALLERGIE Class ity of S [facility] Social History Social Habit Start Date Stop Date Quantity Comments Source ASSERTION 2022-03-20 University of 00:00:00 [facility] History of Cigarette Smoker Universi ty of tobacco use [facility] Exposure to 2022-10-20 2022-10-30 Not sure [facility] SARS-CoV-2 00:00:00 15:44:00 [facility] (event) [place] Tobacco use and 2022-05-10 2022-05-10 Former smokeless Uni versity of exposure 00:00:00 00:00:00 tobacco user [facility] Alcohol intake 2022-05-10 2022-05-10 Ex-drinker [facility] 00:00:00 00:00:00 (finding) [facility] Tobacco Comment 2022-05-10 2022-05-10 Stopped Un iversity of 00:00:00 00:00:00 [facility] Sex [birth year] Universit y of 00:00:00 00:00:00 [facility] Smoking Status Start Date Stop Date Source Ex-smoker 2022-05-10 00:00:00 2022-05-10 00:00:00 Universi ty of [facility] Current every day 2015-09-21 00:00:00 [facility] Medications Ordered Filled Start Stop Current Ordering Indication Dosage Frequency Signature Comments Components Source Medication Medication Date Date Medication? Clinician (SIG) Name Name hydroCHLORO Yes [id number] 25mg Take 1 Univers thiazide 25 7-03 tablet by ity of mg tablet 00:00: [place] 00 the Medical morning. Branch hydroCHLORO Yes [id number] 25mg Take 1 Univers thiazide 25 7-03 tablet by ity of mg tablet 00:00: [place] 00 the Medical morning. Branch cephALEXin Yes [id number] 500mg Take 1 Univers 500 mg 6-30 capsule by ity of capsule 00:00: mouth 4 [place] ([facility]) Medical times Branch daily. cephALEXin 3-0 Yes [id number] 500mg Take 1 Univers 500 mg 6-30 capsule by ity of capsule 00:00: mouth 4 [place] ([facility]) Medical times Branch daily. cephALEXin 3-0 Yes [id number] 500mg Take 1 Univers 500 mg 6-30 capsule by ity of capsule 00:00: mouth 4 [place] ([facility]) Medical times Branch daily. cephALEXin 3-0 Yes [id number] 500mg Take 1 Univers 500 mg 6-30 capsule by ity of capsule 00:00: mouth 4 [place] ([facility]) Medical times Branch daily. cephALEXin 3-0 Yes [id number] 500mg Take 1 Univers 500 mg 6-30 capsule by ity of capsule 00:00: mouth 4 [place] ([facility]) Medical times [place] daily. ARIPiprazol 2022-0 Yes Univer s e 10 mg 6-27 ity of tablet 00:00: [place] [facility] ARIPiprazol 2022-0 Yes Univer s e 10 mg 6-27 ity of tablet 00:00: [place] [facility] ARIPiprazol 3-0 Yes Univer s e 10 mg 6-27 ity of tablet 00:00: [place] [facility] ARIPiprazol 2022-0 Yes Univer s e 10 mg 6-27 ity of tablet 00:00: [place] [facility] ARIPiprazol 2022-0 Yes Univer s e 10 mg 6-27 ity of tablet 00:00: [place] [facility] 27 3-0 Yes Univers mg iron- 1 6-26 ity of mg tablet 00:00: [place] [facility] Branch 27 3-0 Yes Univers mg iron- 1 6-26 ity of mg tablet 00:00: [place] [facility] Branch 27 3-0 Yes Univers mg iron- 1 6-26 ity of mg tablet 00:00: [place] [facility] 27 3-0 Yes Univers mg iron- 1 6-26 ity of mg tablet 00:00: [address] 27 3-0 Yes Univers mg iron- 1 6-26 ity of mg tablet 00:00: [address] Branch ibuprofen 2023-0 Yes 600mg 600 mg, Univ ers (IBU) 25 Oral, Q6H ity of tablet 600 05:00: ABX, First [place] mg 00 dose on [facility] 11/24/22 at 0000, Until Discontinu ed, Routine ibuprofen 2022- No 600mg 600 mg, Uni vers (IBU) 11-24-24 Oral, Q6H ity of tablet 600 05:00: 23:45 ABX, First [place] mg 00 :20 dose on [facility] 11/24/22 at 0000, Until Discontinu ed, Routine ketorolac 2022- No 30mg 30 mg, Unive rs (TORADOL) 11-23 Slow IV ity of injection 05:00: 04:59 Push, Q6H [place] 30 mg 00 :00 ABX, 4 Medical doses, Branch First dose on 11/23/22 at 0000, Last dose on 11/23/22 at 1800, Routine ketorolac 2022- No 30mg 30 mg, Unive rs (TORADOL) 11-23 Slow IV ity of injection 05:00: 23:45 Push, Q6H [place] 30 mg 00 :20 ABX, 4 Medical doses, Branch First dose on 11/23/22 at 0000, Last dose on 11/23/22 at 1800, Routine Yes [id number] 1{tbl} Take 1 Univers vitamin 6-24 102 tablet by ity of w/FA tablet 00:00: mouth in [place] 00 the Medical morning. Branch docusate Yes [id number] 200mg Take 2 Univers 100 mg 6-24 102 capsules ity of capsule 00:00: by mouth 00 once daily Medical as needed Branch for Constipati on. ferrous Yes [id number] 325mg Take 1 Univers sulfate 325 6-24 102 tablet by ity of mg (65 mg 00:00: [place] iron[place] 00 the Medical tablet morning Branch and 1 tablet in the evening. ibuprofen Yes [id number] 600mg Take 1 Univers 600 mg 6-24 102 tablet by ity of tablet 00:00: mouth [place] 00 every 6 Medical (six) Branch hours as needed (Pain). Take with food or milk. 2022-0 Yes [id number] 1{tbl} Take 1 Univers vitamin 6-24 102 tablet by ity of w/FA tablet 00:00: mouth in [place] 00 the Medical morning. Branch docusate 2022-0 Yes [id number] 200mg Take 2 Univers 100 mg 6-24 102 capsules ity of capsule 00:00: by mouth [place] 00 once daily Medical as needed Branch for Constipati on. ferrous 2022-0 Yes [id number] 325mg Take 1 Univers sulfate 325 6-24 102 tablet by ity of mg (65 mg 00:00: [place] iron) 00 the Medical tablet morning Branch and 1 tablet in the evening. ibuprofen 2022-0 Yes [id number] 600mg Take 1 Univers 600 mg 6-24 102 tablet by ity of tablet 00:00: mouth [place] 00 every 6 Medical (six) Branch hours as needed (Pain). Take with food or milk. 2022-0 Yes [id number] 1{tbl} Take 1 Univers vitamin 6-24 102 tablet by ity of w/FA tablet 00:00: mouth in [place] 00 the Medical morning. Branch docusate 0 Yes [id number] 200mg Take 2 Univers 100 mg 6-24 102 capsules ity of capsule 00:00: by mouth [place] 00 once daily Medical as needed Branch for Constipati on. ferrous 2022-0 Yes [id number] 325mg Take 1 Univers sulfate 325 6-24 102 tablet by ity of mg (65 mg 00:00: [place] iron) 00 the Medical tablet morning Branch and 1 tablet in the evening. ibuprofen 2022-0 Yes [id number] 600mg Take 1 Univers 600 mg 6-24 102 tablet by ity of tablet 00:00: mouth [place] 00 every 6 Medical (six) Branch hours as needed (Pain). Take with food or milk. 2022-0 Yes [id number] 1{tbl} Take 1 Univers vitamin 6-24 102 tablet by ity of w/FA tablet 00:00: mouth in [place] 00 the Medical morning. Branch docusate 2022-0 Yes [id number] 200mg Take 2 Univers 100 mg 6-24 102 capsules ity of capsule 00:00: by mouth [place] 00 once daily Medical as needed Branch for Constipati on. ferrous 2022-0 Yes [id number] 325mg Take 1 Univers sulfate 325 6-24 102 tablet by ity of mg (65 mg 00:00: [place] iron) 00 the Medical tablet morning Branch and 1 tablet in the evening. ibuprofen 2022-0 Yes [id number] 600mg Take 1 Univers 600 mg 6-24 102 tablet by ity of tablet 00:00: mouth [place] 00 every 6 Medical (six) Branch hours as needed (Pain). Take with food or milk. 2022-0 Yes [id number] 1{tbl} Take 1 Univers vitamin 6-24 102 tablet by ity of w/FA tablet 00:00: mouth in [place] 00 the Medical morning. Branch docusate 0 Yes [id number] 200mg Take 2 Univers 100 mg 6-24 102 capsules ity of capsule 00:00: by mouth [place] 00 once daily Medical as needed Branch for Constipati on. ferrous 2022-0 Yes [id number] 325mg Take 1 Univers sulfate 325 6-24 102 tablet by ity of mg (65 mg 00:00: [place] iron) 00 the Medical tablet morning Branch and 1 tablet in the evening. ibuprofen 2022-0 Yes [id number] 600mg Take 1 Univers 600 mg 6-24 102 tablet by ity of tablet 00:00: mouth [place] 00 every 6 Medical (six) Branch hours as needed (Pain). Take with food or milk. 2022-0 Yes [id number] 1{tbl} Take 1 Univers vitamin 6-24 102 tablet by ity of w/FA tablet 00:00: mouth in [place] 00 the Medical morning. Branch docusate 2022-0 Yes [id number] 200mg Take 2 Univers 100 mg 6-24 102 capsules ity of capsule 00:00: by mouth [place] 00 once daily Medical as needed Branch for Constipati on. ferrous 2022-0 Yes [id number] 325mg Take 1 Univers sulfate 325 6-24 102 tablet by ity of mg (65 mg 00:00: [place] iron) 00 the Medical tablet morning Branch and 1 tablet in the evening. ibuprofen 2022-0 Yes [id number] 600mg Take 1 Univers 600 mg 6-24 102 tablet by ity of tablet 00:00: mouth [place] 00 every 6 Medical (six) Branch hours as needed (Pain). Take with food or milk. 2022-0 Yes [id number] 1{tbl} Take 1 Univers vitamin 6-24 102 tablet by ity of w/FA tablet 00:00: mouth in [place] 00 the Medical morning. Branch docusate 0 Yes [id number] 200mg Take 2 Univers 100 mg 6-24 102 capsules ity of capsule 00:00: by mouth [place] 00 once daily Medical as needed Branch for Constipati on. ferrous 0 Yes [id number] 325mg Take 1 Univers sulfate 325 6-24 102 tablet by ity of mg (65 mg 00:00: [place] iron) 00 the Medical tablet morning Branch and 1 tablet in the evening. ibuprofen 0 Yes [id number] 600mg Take 1 Univers 600 mg 6-24 102 tablet by ity of tablet 00:00: mouth [place] 00 every 6 Medical (six) Branch hours as needed (Pain). Take with food or milk. 0 Yes [id number] 1{tbl} Take 1 Univers vitamin 6-24 102 tablet by ity of w/FA tablet 00:00: mouth in [place] 00 the Medical morning. Branch docusate 0 Yes [id number] 200mg Take 2 Univers 100 mg 6-24 102 capsules ity of capsule 00:00: by mouth [place] 00 once daily Medical as needed Branch for Constipati on. ferrous 0 Yes [id number] 325mg Take 1 Univers sulfate 325 6-24 102 tablet by ity of mg (65 mg 00:00: [place] iron) 00 the Medical tablet morning Branch and 1 tablet in the evening. ibuprofen 0 Yes [id number] 600mg Take 1 Univers 600 mg 6-24 102 tablet by ity of tablet 00:00: mouth [place] 00 every 6 Medical (six) Branch hours as needed (Pain). Take with food or milk. HYDROcodone 0 2022- No [id number] 1{tbl} Take 1 U nivers -acetaminop 6-24 - tablet by it y of hen 5-325 00:00: 04:59 mouth [place] mg tablet 00 :00 every 6 Medical (six) Branch hours as needed (Pain scale above 4) for up to 7 days. Do not exceed 3 grams of acetaminop hen in 24 hours. Indication s: acute pain HYDROcodone 2022- No [id number] 1{tbl} Take 1 U nivers -acetaminop 6-24 07-02 tablet by it y of hen 5-325 00:00: 04:59 mouth [place] mg tablet 00 :00 every 6 Medical (six) Branch hours as needed (Pain scale above 4) for up to 7 days. Do not exceed 3 grams of acetaminop hen in 24 hours. Indication s: acute pain HYDROcodone 2022- No 4647 1{tbl} Take 1 U nivers -acetaminop 6-24 -02 tablet by it y of hen 5-325 00:00: 04:59 mouth [place] mg tablet 00 :00 every 6 Medical (six) Branch hours as needed (Pain scale above 4) for up to 7 days. Do not exceed 3 grams of acetaminop hen in 24 hours. Indication s: acute pain HYDROcodone 2022- No 4647 1{tbl} Take 1 U nivers -acetaminop 6-24 -02 tablet by it y of hen 5-325 00:00: 04:59 mouth [place] mg tablet 00 :00 every 6 Medical (six) Branch hours as needed (Pain scale above 4) for up to 7 days. Do not exceed 3 grams of acetaminop hen in 24 hours. Indication s: acute pain HYDROcodone 2022- No 4647 1{tbl} Take 1 U nivers -acetaminop 6-24 -02 tablet by it y of hen 5-325 00:00: 04:59 mouth [place] mg tablet 00 :00 every 6 Medical (six) Branch hours as needed (Pain scale above 4) for up to 7 days. Do not exceed 3 grams of acetaminop hen in 24 hours. Indication s: acute pain acetaminoph Yes 650mg 650 mg, Un james en - Oral, Q6H ity of (TYLENOL) 23:00: ABX, First [place] tablet 650 00 dose on Medica l mg Fri Branch 11/22/22 at 1800, Until Discontinu ed, Routine HYDROcodone Yes 1{tbl} 1 tablet, Univers -acetaminop - Oral, ity of hen (NORCO 23:00: Q6HPRN, [place] 5) 5-325 mg 00 Starting Medi jamey tablet 1 on Fri Branch tablet 11/22/22 at 1800, Until Discontinu ed, Routine, Pain (scale 7-10), Alternate with Ibuprofen acetaminoph 2022- No 650mg 650 mg, U nivers en 11-22 Oral, Q6H ity of (TYLENOL) 23:00: 23:45 ABX, First [place] tablet 650 00 :20 dose on Medica l mg Fri Branch 11/22/22 at 1800, Until Discontinu ed, Routine HYDROcodone 2022- No 1{tbl} 1 tablet, Univers -acetaminop 11-22 Oral, ity of hen (NORCO 23:00: 23:45 Q6HPRN, [place] 5) 5-325 mg 00 :20 Starting Medi jamey tablet 1 on Fri Branch tablet 11/22/22 at 1800, Until 11/23/22 at 1845, Routine, Pain (scale 7-10), Alternate with Ibuprofen gabapentin Yes 300mg 300 mg, Uni vers (NEURONTIN) 11-22 Oral, TID, it y of capsule 300 19:00: First dose [place] mg 00 on Fri Medical 11/22/22 at Branch 1400, Until Discontinu ed, Routine gabapentin 2022- No 300mg 300 mg, Un james (NEURONTIN) 11-22 Oral, TID, i ty of capsule 300 19:00: 23:45 First dose [place] mg 00 :20 on [facility] Medical 11/22/22 at Branch 1400, Until Discontinu ed, Routine naloxone 2022- No .4mg 0.4 mg, Unive rs (NARCAN) 11-22 Intramuscu ity of injection 19:00: 18:57 lar, ONCE, [place] 0.4 mg 00 :00 1 dose, On Medical Fri Branch 11/22/22 at 1400, CAITLYN acetaminoph 2022- No 1000mg 1,000 mg, Univers en ADULT 11-22 IV ity of (OFIRMEV) 19:00: 19:08 Infusion, [place] injection 00 :[address] [place] [address] 1,000 mg mL/hr Branch Administer over 15 Minutes, ONCE, 1 dose, On Fri11/22/22 at 1400, Routine
Indicatio n: Perioperat christa Patient naloxone 2022- No .2mg 0.2 mg, Unive rs (NARCAN) 11-22 Intramuscu ity of injection 14:28: 18:28 lar, [place] 0.2 mg 43 :45 Q3HPRN, Medical Starting Branch on Fri11/22/22 at 0928, Until Fri11/22/22 at 1328, Routine, Itching naloxone 2022- No .4mg 0.4 mg, Unive rs (NARCAN) 11-22 Slow IV ity of injection 14:28: 23:14 Push, PRN [place] 0.4 mg 37 :19 - SEE Medical INSTRUCTIO Branch NS, Starting on Fri11/22/22 at 0928, Until 11/24/22 at 1814, Routine, Analgesia Recovery naloxone 2022- No .4mg 0.4 mg, Unive rs (NARCAN) 11-22 Slow IV ity of injection 14:28: 23:45 Push, PRN [place] 0.4 mg 37 :20 - SEE Medical INSTRUCTIO Branch NS, Starting on Fri11/22/22 at 0928, Until 11/23/22 at 1845, Routine, Analgesia Recovery lactated 2022- No 1000mL at 125 Univ ers ringers IV 11-22 mL/hr, ity of infusion 14:15: 17:08 1,000 mL, [place] 1,000 mL 00 :12 IV Medical Infusion, Branch ONCE, 1 dose, On Fri11/22/22 at 0915, Routine rho(D) Yes 300ug 300 mcg, Univer s immune 11-22 Intramuscu ity of globulin 14:13: lar, ONCE, [place] (RHOGAM) 29 For 1 Medical syringe 300 dose, Branch mcg Conditiona l, Routine rho(D) 2022- No 300ug 300 mcg, Unive rs immune 11-22 Intramuscu ity of globulin 14:13: 23:45 [place], ONCE, [place] (RHOGAM) 29 :20 For 1 Medical syringe 300 dose, Branch mcg Conditiona l, Routine diphenhydrA 3-0 Yes 25mg 25 mg, Univ ers MINE 11-22 Slow IV ity of (BENADRYL) 14:13: Push, [place] injection 23 Q6HPRN, Medical 25 mg Starting Branch on 11/22/22 at 09, Until Discontinu ed, Routine, Itching diphenhydrA 3-0 Yes 25mg 25 mg, Univ ers MINE 11-22 Oral, ity of (BENADRYL) 14:13: Q6HPRN, [place] tablet 25 23 Starting Medica l mg on Fri Branch 11/22/22 at 09, Until Discontinu ed, Routine, Sleep, Itching ondansetron 2022-0 Yes 4mg 4 mg, Slow Univers (ZOFRAN 11-22 IV Push, ity of (PF)) 14:13: Q8HPRN, [place] injection 4 23 Starting Medi jamey mg on Fri Branch 11/22/22 at 09, Until Discontinu ed, Routine, Nausea and Vomiting (N/V) bisacodyL 2022-0 Yes 10mg 10 mg, Univer s (DULCOLAX) 11-22 Rectal, ity of suppository 14:13: QDAILYPRN, [place] 10 mg 23 Starting Medical on Fri Branch 11/22/22 at 09, Until Discontinu ed, Routine, Constipati on simethicone 2022-0 Yes 160mg 160 mg, Un james (GAS RELIEF 11-22 Oral, ity of (SIMETHICON 14:13: PC+HSPRN, [place] E)) 23 Starting Medical chewable on Fri Branch tablet 160 11/22/22 at mg 912, Until Discontinu ed, Routine, Gas docusate 2022-0 Yes 200mg 200 mg, Unive rs (COLACE) 11-22 Oral, ity of capsule 200 14:13: QDAILYPRN, [place] mg 23 Starting Medical on Fri Branch 11/22/22 at 09, Until Discontinu ed, Routine, Constipati on magnesium 2022-0 Yes 30mL 30 mL, Univer s hydroxide 11-22 Oral, ity of (MILK OF 14:13: QDAILYPRN, [place] MAGNESIA) 23 Starting Medica l 400 mg/5 mL on Fri Branch suspension 11/22/22 at 30 mL 0913, Until Discontinu ed, Routine, Constipati on lactated Yes 1000mL at 125 Unive rs ringers IV 6-23 mL/hr, ity of infusion 14:13: 1,000 mL, [place] 1,000 mL 23 IV Medical Infusion, Branch PRN, 1 dose, Starting on Fri11/22/22 at 0913, Until Discontinu ed, Routine diphenhydrA 2022- No 25mg 25 mg, Uni vers MINE 11-22 Slow IV ity of (BENADRYL) 14:13: 23:45 Push, [place] injection 23 :20 Q6HPRN, Medical 25 mg Starting Branch on Fri11/22/22 at 0913, Until 11/23/22 at 1845, Routine, Itching diphenhydrA 2022- No 25mg 25 mg, Uni vers MINE 11-22 Oral, ity of (BENADRYL) 14:13: 23:45 Q6HPRN, [place] tablet 25 23 :20 Starting Medica l mg on Fri Branch 11/22/22 at 0913, Until 11/23/22 at 1845, Routine, Sleep, Itching ondansetron 2022- No 4mg 4 mg, Slow Univers (ZOFRAN 11-22 IV Push, ity of (PF)) 14:13: 23:45 Q8HPRN, [place] injection 4 23 :20 Starting Medi jamey mg on Fri Branch 11/22/22 at 0913, Until 11/23/22 at 1845, Routine, Nausea and Vomiting (N/V) bisacodyL 2022- No 10mg 10 mg, Unive rs (DULCOLAX) 11-22 Rectal, ity o f suppository 14:13: 23:45 QDAILYPRN, [place] 10 mg 23 :20 Starting Medical on Fri Branch 11/22/22 at 0913, Until 11/23/22 at 1845, Routine, Constipati on simethicone 2022- No 160mg 160 mg, U nivers (GAS RELIEF 11-22 Oral, ity of (SIMETHICON 14:13: 23:45 PC+HSPRN, [place] E)) 23 :20 Starting Medical chewable on Fri Branch tablet 160 11/22/22 at mg 0913, Until 11/23/22 at 1845, Routine, Gas docusate 2022- No 200mg 200 mg, [facility] ers (COLACE) 11-22 Oral, ity of capsule 200 14:13: 23:45 QDAILYPRN, [place] mg 23 :20 Starting Medical on Fri Branch 11/22/22 at 0913, Until 11/23/22 at 1845, Routine, Constipati on magnesium 2022- No 30mL 30 mL, [facility] rs hydroxide 11-22 Oral, ity of (MILK OF 14:13: 23:45 QDAILYPRN, [place] MAGNESIA[place] 23 :20 Starting Medica l 400 mg/5 mL on Fri Branch suspension 11/22/22 at 30 mL 0913, Until 11/23/22 at 1845, Routine, Constipati on lactated 2022- No 1000mL at 125 [facility] ers ringers IV 11-22 mL/hr, ity of infusion 14:13: 23:45 1,000 mL, [place] 1,000 mL 23 :20 IV Medical Infusion, Branch PRN, 1 dose, Starting on 11/22/22 at 0913, Until 11/23/22 at 1845, Routine mupirocin Yes Intra-op [facility] ers (BACTROBAN 11-22 ity of OINT) 2 % 13:25: [place] skin 00 Medical ointment Branch sodium Yes PRN, [facility] chloride 11-22 Starting ity of 0.9 % 13:25: on Fri [place] irrigation 00 11/22/22 at Med ical solution 0825, Branch Until Discontinu ed, Intra-op mupirocin 2022- No Intra-op Uni vers (BACTROBAN 11-22 ity of OINT) 2 % 13:25: 23:45 [place] skin 00 :20 Medical ointment Branch sodium 2022- No PRN, [facility] chloride 11-22 Starting ity of 0.9 % 13:25: 23:45 on Fri [place] irrigation 00 :20 6/23/23 at Med ical solution 0825, Branch Until 11/23/22 at 1845, Intra-op ondansetron 2022- No 4mg 4 mg, Slow Univers (ZOFRAN 11-22 IV Push, ity of (PF)) 13:15: 14:21 ONCE, 1 [place] injection 4 00 :00 dose, On Medi jamey mg Fri Branch 11/22/22 at 0815, Routine diphenhydrA 2022- No 25mg 25 mg, Uni vers MINE 11-22 Slow IV ity of (BENADRYL) 13:12: 23:55 Push, [place] injection 10 :37 Q4HPRN, Medical 25 mg Starting Branch on Fri11/22/22 at 0812, Until 11/23/22 at 1855, Routine, Itching diphenhydrA 2022- No 25mg 25 mg, Uni vers MINE 11-22 Slow IV ity of (BENADRYL) 13:12: 23:45 Push, [place] injection 10 :20 Q4HPRN, Medical 25 mg Starting Branch on Fri11/22/22 at 0812, Until 11/23/22 at 1845, Routine, Itching naloxone 2022- No .4mg 0.4 mg, Unive rs (NARCAN) 11-22 Slow IV ity of injection 13:11: 23:14 [place]N [place] 0.4 mg 06 :19 - SEE Medical INSTRUCTIO [place] NS, Starting on Fri11/22/22 at 0811, Until 11/24/22 at 1814, Routine, Analgesia Recovery naloxone 2022- No .4mg 0.4 mg, Unive rs (NARCAN) 11-22 Slow IV ity of injection 13:11: 23:45 [place] PRN [place] 0.4 mg 06 :20 - SEE Medical INSTRUCTIO [place] NS, Starting on Fri11/22/22 at 0811, Until 11/23/22 at 1845, Routine, Analgesia Recovery oxytocin 2022- No 300mL/h 300 mL/hr, Univers (PITOCIN) 11-22 IV ity of 30 units in 12:46: 14:13 Infusion, [place] NS 500 mL 22 :27 SEE-INSTRU Medi jamey IV infusion CTIONS, Branc h Starting on Fri11/22/[address] at 300 mL/hr for 1 hr then 150 mL/hr for 1 hr. For post delivery uterotonic .
sodium 2022- No 30mL 30 mL, [facility] citrate-cit 11-22 Oral, ity of lydia acid 10:40: 12:19 [place]PROCED [place] (BICITRA) 36 :00 URE ONCE, Medic al 500-334 1 dose, Branch mg/5 mL Starting solution 30 on Fri mL 11/22/22 at 0540, Until Discontinu ed, Routine, Surgery/Pr ocedure [id number] IV 2022- No 1000mL at 1-125 U nivers infusion 11-22 mL/hr, IV ity o f 1,000 mL 10:40: 14:13 Infusion, [place] 36 :27 TITRATE, Medical Starting Branch on Fri11/22/22 at 0540, Until Fri11/22/22 at 0913, Routine glyBURIDE Yes [id number] 1.25mg Take 1 Univers 1.25 mg 6-20 tablet by ity of tablet 00:00: mouth in [address] and 1 tablet in the evening. AM dose 30 mins before breakfast, PM dose at 10pm glyBURIDE 3-0 Yes [id number] 1.25mg Take 1 Univers 1.25 mg 6-20 tablet by ity of tablet 00:00: mouth in [address] and 1 tablet in the evening. AM dose 30 mins before breakfast, PM dose at 10pm glyBURIDE 3-0 Yes [id number] 1.25mg Take 1 Univers 1.25 mg 6-20 tablet by ity of tablet 00:00: mouth in [address] and 1 tablet in the evening. AM dose 30 mins before breakfast, PM dose at 10pm glyBURIDE 3-0 Yes [id number] 1.25mg Take 1 Univers 1.25 mg 6-20 tablet by ity of tablet 00:00: mouth in [address] and 1 tablet in the evening. AM dose 30 mins before breakfast, PM dose at 10pm glyBURIDE Yes [id number] 1.25mg Take 1 Univers 1.25 mg 6-20 tablet by ity of tablet 00:00: mouth in [place] 00 the morning Branch and 1 tablet in the evening. AM dose 30 mins before breakfast, PM dose at 10pm metoclopram 0 Yes 10mg 10 mg, IV U nivers tomasz HCl 11-07 Piggyback, ity of (REGLAN) 10 05:00: Q6H, First [place] mg in NaCl 00 dose on Medica l 0.9% (NS) Natalie 11/07/22 [facility] piggyback at 0000, Until Discontinu ed, 50 mL diphenhydrA 2022- No 25mg 25 mg, Uni vers MINE 11-07 Intravenou ity of (BENADRYL) 03:45: 15:44 s, ONCE, 1 [place] injection 00 :00 dose, On Medica l 25 mg [facility] 11/06/22 Branch at 2245, Routine insulin 2022- No 6U 6 Units, Unive rs regular 11-07 Subcutaneo ity o f human 03:00: 02:12 , ONCE, [place] (HUMULIN R) 00 :00 1 dose, On Me dical injection 6 Fri11/06/22 Br anch Units at 2200, Routine
Indicatio n for insulin: Hyperglyce john glyBURIDE Yes 2.5mg 2.5 mg, Univ ers (DIABETA) 11-07 Oral, QHS, ity of tablet 2.5 02:00: [place] mg 00 on [facility] Medical 11/06/22 at Branch 2100, Until Discontinu ed, Routine acetaminoph 2022- No 1000mg 1,000 mg, Univers en 11-07 Oral, ONCE ity of (TYLENOL) 01:30: 00:36 NOW, 1 [place] tablet 00 :00 dose, On Medical 1,000 mg [facility] 11/06/22 Branc h at 2030, Routine maalox:diph 0 Yes 15mL 15 mL, Univ ers enhydrAMINE 11-07 Oral, ity of :lidocaine 01:15: QDAILYPRN, [place] 2 % viscous 26 Starting Medi jamey 1:1:1 on Fri ([facility] 11/06/22 at [facility]) 2014, oral Until suspension Discontinu 15 mL ed, Routine, heartburn glyBURIDE 3-0 Yes [id number] 1.25mg Take 1 Univers 1.25 mg 5-31 tablet by ity of tablet 00:00: mouth in [address] and 1 tablet in the evening. AM dose 30 mins before breakfast, PM dose at 10pm glyBURIDE 2023-0 Yes [id number] 1.25mg Take 1 Univers 1.25 mg 5-31 tablet by ity of tablet 00:00: mouth in [address] and 1 tablet in the evening. AM dose 30 mins before breakfast, PM dose at 10pm glyBURIDE 2023-0 Yes [id number] 1.25mg Take 1 Univers 1.25 mg 5-31 tablet by ity of tablet 00:00: mouth in [address] and 1 tablet in the evening. AM dose 30 mins before breakfast, PM dose at 10pm glyBURIDE 2023-0 Yes [id number] 1.25mg Take 1 Univers 1.25 mg 5-31 tablet by ity of tablet 00:00: mouth in [address] and 1 tablet in the evening. AM dose 30 mins before breakfast, PM dose at 10pm glyBURIDE 2023-0 Yes [id number] 1.25mg Take 1 Univers 1.25 mg 5-31 tablet by ity of tablet 00:00: mouth in [address] and 1 tablet in the evening. AM dose 30 mins before breakfast, PM dose at 10pm glyBURIDE 2023-0 Yes [id number] 1.25mg Take 1 Univers 1.25 mg 5-31 tablet by ity of tablet 00:00: mouth in [address] and 1 tablet in the evening. AM dose 30 mins before breakfast, PM dose at 10pm glyBURIDE 2023-0 Yes [id number] 1.25mg Take 1 Univers 1.25 mg 5-31 tablet by ity of tablet 00:00: mouth in [address] and 1 tablet in the evening. AM dose 30 mins before breakfast, PM dose at 10pm glyBURIDE 2023-0 Yes [id number] 1.25mg Take 1 Univers 1.25 mg 5-31 tablet by ity of tablet 00:00: mouth in [place] 00 the Medical morning Branch and 1 tablet in the evening. AM dose 30 mins before breakfast, PM dose at 10pm glyBURIDE 2022-0 2023- No [id number] 1.25mg Take 1 Univers 1.25 mg 5-31 06-20 tablet by ity of tablet 00:00: 00:00 mouth in [place] 00 :00 the Medical morning Branch and 1 tablet in the evening. AM dose 30 mins before breakfast, PM dose at 10pm Blood-Gluco 0 Yes Check Unive rs se Meter 5-24 blood ity of Kit 00:00: glucose 4x [place] 00 a day Medical Branch blood sugar Yes Check Unive rs diagnostic 5-24 blood ity of (BLOOD 00:00: glucose 4x [place] GLUCOSE 00 a day Medical TEST) strip Branch Lancets Yes Check Univers Misc 5-24 blood ity of 00:00: glucose 4 [place] 00 times a Medical day Branch Alcohol Yes Apply to Univer s Swabs 5-24 area(s) 4 ity of (ALCOHOL 00:00: (four) [place] PADS) PadM 00 times Medical daily. Branch Blood-Gluco Yes Check Unive rs se Meter 5-24 blood ity of Kit 00:00: glucose 4x [place] 00 a day Medical [place] blood sugar Yes Check Unive rs diagnostic 5-24 blood ity of (BLOOD 00:00: glucose 4x [place] GLUCOSE 00 a day Medical TEST) strip Branch Lancets Yes Check Univers Misc 5-24 blood ity of 00:00: glucose 4 [place] 00 times a Medical day Branch Alcohol 0 Yes Apply to Univer s Swabs 5-24 area(s) 4 ity of (ALCOHOL 00:00: (four) [place] PADS) PadM 00 times Medical daily. Branch Blood-Gluco Yes Check Unive rs se Meter 5-24 blood ity of Kit 00:00: glucose 4x [place] 00 a day Medical [place] blood sugar Yes Check Unive rs diagnostic 5-24 blood ity of (BLOOD 00:00: glucose 4x [place] GLUCOSE 00 a day Medical TEST) strip Branch Lancets Yes Check Univers Misc 5-24 blood ity of 00:00: glucose 4 [place] 00 times a Medical day Branch Alcohol 0 Yes Apply to Univer s Swabs 5-24 area(s) 4 ity of (ALCOHOL 00:00: (four) [place] PADS) PadM 00 times Medical daily. Branch Blood-Gluco Yes Check Unive rs se Meter 5-24 blood ity of Kit 00:00: glucose 4x [place] 00 a day Medical Branch blood sugar Yes Check Unive rs diagnostic 5-24 blood ity of (BLOOD 00:00: glucose 4x [place] GLUCOSE 00 a day Medical TEST) strip Branch Lancets 0 Yes Check Univers Misc 5-24 blood ity of 00:00: glucose 4 [place] 00 times a Medical day Branch Alcohol 0 Yes Apply to Univer s Swabs 5-24 area(s) 4 ity of (ALCOHOL 00:00: (four) [place] PADS) PadM 00 times Medical daily. Branch Blood-Gluco Yes Check Unive rs se Meter 5-24 blood ity of Kit 00:00: glucose 4x [place] 00 a day Medical Branch blood sugar 0 Yes Check Unive rs diagnostic 5-24 blood ity of (BLOOD 00:00: glucose 4x [place] GLUCOSE 00 a day Medical TEST) strip Branch Lancets 0 Yes Check Univers Misc 5-24 blood ity of 00:00: glucose 4 [place] 00 times a Medical day Branch Alcohol 2022-0 Yes Apply to Univer s Swabs 5-24 area(s) 4 ity of (ALCOHOL 00:00: (four) [place] PADS) PadM 00 times Medical daily. Branch Blood-Gluco Yes Check Unive rs se Meter 5-24 blood ity of Kit 00:00: glucose 4x [place] 00 a day Medical Branch blood sugar 0 Yes Check Unive rs diagnostic 5-24 blood ity of (BLOOD 00:00: glucose 4x [place] GLUCOSE 00 a day Medical TEST) strip Branch Lancets 0 Yes Check Univers Misc 5-24 blood ity of 00:00: glucose 4 [place] 00 times a Medical day Branch Alcohol 2022-0 Yes Apply to Univer s Swabs 5-24 area(s) 4 ity of (ALCOHOL 00:00: (four) [place] PADS) PadM 00 times Medical daily. Branch Blood-Gluco Yes Check Unive rs se Meter 5-24 blood ity of Kit 00:00: glucose 4x [place] 00 a day Medical Branch blood sugar Yes Check Unive rs diagnostic 5-24 blood ity of (BLOOD 00:00: glucose 4x [place] GLUCOSE 00 a day Medical TEST) strip Branch Lancets Yes Check Univers Misc 5-24 blood ity of 00:00: glucose 4 [place] 00 times a Medical day Branch Alcohol Yes Apply to Univer s Swabs 5-24 area(s) 4 ity of (ALCOHOL 00:00: (four) [place] PADS) PadM 00 times Medical daily. Branch Blood-Gluco Yes Check Unive rs se Meter 5-24 blood ity of Kit 00:00: glucose 4x [place] 00 a day Medical Branch blood sugar Yes Check Unive rs diagnostic 5-24 blood ity of (BLOOD 00:00: glucose 4x [place] GLUCOSE 00 a day Medical TEST) strip Branch Lancets Yes Check Univers Misc 5-24 blood ity of 00:00: glucose 4 [place] 00 times a Medical day Branch Alcohol 0 Yes Apply to Univer s Swabs 5-24 area(s) 4 ity of (ALCOHOL 00:00: (four) [place] PADS) PadM 00 times Medical daily. Branch Blood-Gluco Yes Check Unive rs se Meter 5-24 blood ity of Kit 00:00: glucose 4x [place] 00 a day Medical Branch blood sugar Yes Check Unive rs diagnostic 5-24 blood ity of (BLOOD 00:00: glucose 4x [place] GLUCOSE 00 a day Medical TEST) strip Branch Lancets Yes Check Univers Misc 5-24 blood ity of 00:00: glucose 4 [place] 00 times a Medical day Branch Alcohol 0 Yes Apply to Univer s Swabs 5-24 area(s) 4 ity of (ALCOHOL 00:00: (four) [place] PADS) PadM 00 times Medical daily. Branch Blood-Gluco Yes Check Unive rs se Meter 5-24 blood ity of Kit 00:00: glucose 4x [place] 00 a day Medical Branch blood sugar Yes Check Unive rs diagnostic 5-24 blood ity of (BLOOD 00:00: glucose 4x [place] GLUCOSE 00 a day Medical TEST) strip Branch Lancets Yes Check Univers Misc 5-24 blood ity of 00:00: glucose 4 [place] 00 times a Medical day Branch Alcohol Yes Apply to Univer s Swabs 5-24 area(s) 4 ity of (ALCOHOL 00:00: (four) [place] PADS) PadM 00 times Medical daily. Branch Blood-Gluco Yes Check Unive rs se Meter 5-24 blood ity of Kit 00:00: glucose 4x [place] 00 a day Medical Branch blood sugar Yes Check Unive rs diagnostic 5-24 blood ity of (BLOOD 00:00: glucose 4x [place] GLUCOSE 00 a day Medical TEST) strip Branch Lancets Yes Check Univers Misc 5-24 blood ity of 00:00: glucose 4 [place] 00 times a Medical day Branch Alcohol Yes Apply to Univer s Swabs 5-24 area(s) 4 ity of (ALCOHOL 00:00: (four) [place] PADS) PadM 00 times Medical daily. Branch Blood-Gluco Yes Check Unive rs se Meter 5-24 blood ity of Kit 00:00: glucose 4x [place] 00 a day Medical Branch blood sugar Yes Check Unive rs diagnostic 5-24 blood ity of (BLOOD 00:00: glucose 4x [place] GLUCOSE 00 a day Medical TEST) strip Branch Lancets Yes Check Univers Misc 5-24 blood ity of 00:00: glucose 4 [place] 00 times a Medical day Branch Alcohol Yes Apply to Univer s Swabs 5-24 area(s) 4 ity of (ALCOHOL 00:00: (four) [place] PADS) PadM 00 times Medical daily. Branch Blood-Gluco Yes Check Unive rs se Meter 5-24 blood ity of Kit 00:00: glucose 4x [place] 00 a day Medical Branch blood sugar Yes Check Unive rs diagnostic 5-24 blood ity of (BLOOD 00:00: glucose 4x [place] GLUCOSE 00 a day Medical TEST) strip Branch Lancets Yes Check Univers Misc 5-24 blood ity of 00:00: glucose 4 [place] 00 times a Medical day Branch Alcohol 0 Yes Apply to Univer s Swabs 5-24 area(s) 4 ity of (ALCOHOL 00:00: (four) [place] PADS) PadM 00 times Medical daily. Branch Blood-Gluco Yes Check Unive rs se Meter 5-24 blood ity of Kit 00:00: glucose 4x [place] 00 a day Medical Branch blood sugar Yes Check Unive rs diagnostic 5-24 blood ity of (BLOOD 00:00: glucose 4x [place] GLUCOSE 00 a day Medical TEST) strip Branch Lancets Yes Check Univers Misc 5-24 blood ity of 00:00: glucose 4 [place] 00 times a Medical day Branch Alcohol 0 Yes Apply to Univer s Swabs 5-24 area(s) 4 ity of (ALCOHOL 00:00: (four) [place] PADS) PadM 00 times Medical daily. Branch Blood-Gluco Yes Check Unive rs se Meter 5-24 blood ity of Kit 00:00: glucose 4x [place] 00 a day Medical Branch blood sugar Yes Check Unive rs diagnostic 5-24 blood ity of (BLOOD 00:00: glucose 4x [place] GLUCOSE 00 a day Medical TEST) strip Branch Lancets 0 Yes Check Univers Misc 5-24 blood ity of 00:00: glucose 4 [place] 00 times a Medical day Branch Alcohol 0 Yes Apply to Univer s Swabs 5-24 area(s) 4 ity of (ALCOHOL 00:00: (four) [place] PADS) PadM 00 times Medical daily. Branch Blood-Gluco Yes Check Unive rs se Meter 5-24 blood ity of Kit 00:00: glucose 4x [place] 00 a day Medical Branch blood sugar 0 Yes Check Unive rs diagnostic 5-24 blood ity of (BLOOD 00:00: glucose 4x [place] GLUCOSE 00 a day Medical TEST) strip Branch Lancets 0 Yes Check Univers Misc 5-24 blood ity of 00:00: glucose 4 [place] 00 times a Medical day Branch Alcohol 0 Yes Apply to Univer s Swabs 5-24 area(s) 4 ity of (ALCOHOL 00:00: (four) [place] PADS) PadM 00 times Medical daily. Branch Blood-Gluco 2022- No Check Univ ers se Meter 5-24 06-24 blood ity of Kit 00:00: 00:00 glucose 4x [place] 00 :00 a day Medical [place] blood sugar 2022- No Check Univ ers diagnostic 10-23 blood ity of (BLOOD 00:00: 00:00 glucose 4[place] GLUCOSE 00 :00 a day Medical TEST) strip [place] Lancets 2022- No Check Univers Misc 10-23 blood ity of 00:00: 00:00 glucose 4 [place] 00 :00 times a Medical day Branch Alcohol 2022- No Apply to Unive rs Swabs 10-23 area(s) 4 ity of (ALCOHOL 00:00: 00:00 (four) [place] PADS) PadM 00 :00 times Medical daily. [place] Blood-Gluco 2022- No Check Univ ers se Meter 10-23 blood ity of Kit 00:00: 00:00 glucose 4x [place] 00 :00 a day [facility] blood sugar 2022- No Check Univ ers diagnostic 10-23 blood ity of (BLOOD 00:00: 00:00 glucose 4x [place] GLUCOSE 00 :00 a day Medical TEST) strip [place] Lancets 2022- No Check Univers Misc 10-23 blood ity of 00:00: 00:00 glucose 4 [place] 00 :00 times a Medical day Branch Alcohol 2022- No Apply to Unive rs Swabs 10-23 area(s) 4 ity of (ALCOHOL 00:00: 00:00 (four) [place] PADS) PadM 00 :00 times Medical daily. [place] metroNIDAZO 2022- No 500mg 500 mg, U nivers LE (FLAGYL) 10-21 Oral, ity of tablet 500 19:21: 19:28 ONCE, 1 [place] mg 00 :00 dose, On Medical Mon [place] 10/21/22 at 1430, Routine
Reason for Anti-Infec tive: Documented Infection< br>Documen noemi Infection Site: Pelvic
Duration of Therapy: Other (see Comments) lactated 2022- No 1000mL at 999 Univ ers ringers IV 10-21- mL/hr, ity of infusion 16:30: 16:34 1,000 mL, [place] 1,000 mL 00 :00 IV Medical Infusion, Branch ONCE, 1 dose, On Fri10/21/22 at 1145, STAT amoxicillin 3-0 No Univer s 500 mg 5-22 ity of capsule 00:00: [place] 00 Medical Branch lurasidone 3-0 Yes Univers 40 mg 5-22 ity of tablet 00:00: [place] 00 Medical Branch lurasidone 3-0 Yes Univers 40 mg 5-22 ity of tablet 00:00: [place] 00 Medical Branch amoxicillin 2023-0 No Univer s 500 mg 5-22 ity of capsule 00:00: [place] 00 Medical Branch lurasidone 3-0 Yes Univers 40 mg 5-22 ity of tablet 00:00: [place] 00 Medical Branch lurasidone 3-0 Yes Univers 40 mg 5-22 ity of tablet 00:00: [place] 00 Medical Branch lurasidone 3-0 Yes Univers 40 mg 5-22 ity of tablet 00:00: [place] 00 Medical Branch fluconazole 2022-0 Yes [id number] 200mg Take 1 Univers (DIFLUCAN) 5-12 tablet by ity of 200 mg 00:00: mouth in [place] tablet 00 the Medical morning. Branch fluconazole 2022-0 Yes [id number] 200mg Take 1 Univers (DIFLUCAN) 5-12 tablet by ity of 200 mg 00:00: mouth in [place] tablet 00 the Medical morning. Branch fluconazole 2022-0 Yes [id number] 200mg Take 1 Univers (DIFLUCAN) 5-12 tablet by ity of 200 mg 00:00: mouth in [place] tablet 00 the Medical morning. Branch fluconazole 2022-0 Yes [id number] 200mg Take 1 Univers (DIFLUCAN) 5-12 tablet by ity of 200 mg 00:00: mouth in [place] tablet 00 the Medical morning. Branch fluconazole 2022-0 Yes [id number] 200mg Take 1 Univers (DIFLUCAN) 5-12 tablet by ity of 200 mg 00:00: mouth in [place] tablet 00 the Medical morning. Branch fluconazole 2022-0 Yes [id number] 200mg Take 1 Univers (DIFLUCAN) 5-12 tablet by ity of 200 mg 00:00: mouth in [place] tablet 00 the Medical morning. Branch fluconazole 2022-0 Yes [id number] 200mg Take 1 Univers (DIFLUCAN) 5-12 tablet by ity of 200 mg 00:00: mouth in [place] tablet 00 the Medical morning. Branch fluconazole 3-0 Yes [id number] 200mg Take 1 Univers (DIFLUCAN) 5-12 tablet by ity of 200 mg 00:00: mouth in [place] tablet 00 the Medical morning. Branch fluconazole 2023-0 Yes [id number] 200mg Take 1 Univers (DIFLUCAN) 5-12 tablet by ity of 200 mg 00:00: mouth in [place] tablet 00 the Medical morning. Branch fluconazole 3-0 Yes [id number] 200mg Take 1 Univers (DIFLUCAN) 5-12 tablet by ity of 200 mg 00:00: mouth in [place] tablet 00 the Medical morning. Branch fluconazole 3-0 Yes [id number] 200mg Take 1 Univers (DIFLUCAN) 5-12 tablet by ity of 200 mg 00:00: mouth in [place] tablet 00 the Medical morning. Branch fluconazole 3-0 Yes [id number] 200mg Take 1 Univers (DIFLUCAN) 5-12 tablet by ity of 200 mg 00:00: mouth in [place] tablet 00 the Medical morning. Branch fluconazole 3-0 Yes [id number] 200mg Take 1 Univers (DIFLUCAN) 5-12 tablet by ity of 200 mg 00:00: mouth in [place] tablet 00 the Medical morning. Branch fluconazole 3-0 Yes [id number] 200mg Take 1 Univers (DIFLUCAN) 5-12 tablet by ity of 200 mg 00:00: mouth in [place] tablet 00 the Medical morning. Branch fluconazole 3-0 Yes [id number] 200mg Take 1 Univers (DIFLUCAN) 5-12 tablet by ity of 200 mg 00:00: mouth in [place] tablet 00 the Medical morning. Branch fluconazole 3-0 3- No [id number] 200mg Take 1 Univers (DIFLUCAN) 5-12 06-07 tablet by ity of 200 mg 00:00: 00:00 mouth in [place] tablet 00 :00 the Medical morning. Branch fluconazole 3-0 3- No [id number] 200mg Take 1 Univers (DIFLUCAN) 5-12 06-07 tablet by ity of 200 mg 00:00: 00:00 mouth in [place] tablet 00 :00 the Medical morning. Branch fluconazole 3-0 2023- No [id number] 200mg Take 1 Univers (DIFLUCAN) 5-12 06-07 tablet by ity of 200 mg 00:00: 00:00 mouth in [place] tablet 00 :00 the Medical morning. Branch magnesium 2022-0 Yes [id number] 400mg Take 1 U nivers oxide 400 5-10 tablet by ity o f mg (241.3 00:00: mouth [place] mg 00 the Medical magnesium) morning. Branc h tablet magnesium 2022-0 Yes [id number] 400mg Take 1 U nivers oxide 400 5-10 tablet by ity o f mg (241.3 00:00: mouth [place] mg 00 the Medical magnesium) morning. Branc h tablet magnesium 2022-0 Yes [id number] 400mg Take 1 U nivers oxide 400 5-10 tablet by ity o f mg (241.3 00:00: mouth [place] mg 00 the Medical magnesium) morning. Branc h tablet magnesium 2022-0 Yes [id number] 400mg Take 1 U nivers oxide 400 5-10 tablet by ity o f mg (241.3 00:00: mouth [place] mg 00 the Medical magnesium) morning. Branc h tablet magnesium 2022-0 Yes [id number] 400mg Take 1 U nivers oxide 400 5-10 tablet by ity o f mg (241.3 00:00: mouth [place] mg 00 the Medical magnesium) morning. Branc h tablet magnesium 2022-0 Yes [id number] 400mg Take 1 U nivers oxide 400 5-10 tablet by ity o f mg (241.3 00:00: mouth [place] mg 00 the Medical magnesium) morning. Branc h tablet magnesium 2022-0 Yes [id number] 400mg Take 1 U nivers oxide 400 5-10 tablet by ity o f mg (241.3 00:00: mouth [place] mg 00 the Medical magnesium) morning. Branc h tablet magnesium 2022-0 Yes [id number] 400mg Take 1 U nivers oxide 400 5-10 tablet by ity o f mg (241.3 00:00: mouth [place] mg 00 the Medical magnesium) morning. Branc h tablet magnesium 2022-0 Yes [id number] 400mg Take 1 U nivers oxide 400 5-10 tablet by ity o f mg (241.3 00:00: mouth [place] mg 00 the Medical magnesium) morning. Branc h tablet magnesium 3-0 Yes [id number] 400mg Take 1 U nivers oxide 400 5-10 tablet by ity o f mg (241.3 00:00: mouth [place] mg 00 the Medical magnesium) morning. Branc h tablet magnesium 3-0 Yes [id number] 400mg Take 1 U nivers oxide 400 5-10 tablet by ity o f mg (241.3 00:00: mouth [place] mg 00 the Medical magnesium) morning. Branc h tablet magnesium 3-0 Yes [id number] 400mg Take 1 U nivers oxide 400 5-10 tablet by ity o f mg (241.3 00:00: mouth [place] mg 00 the Medical magnesium) morning. Branc h tablet magnesium 3-0 Yes [id number] 400mg Take 1 U nivers oxide 400 5-10 tablet by ity o f mg (241.3 00:00: mouth [place] mg 00 the Medical magnesium) morning. Branc h tablet magnesium 3-0 Yes [id number] 400mg Take 1 U nivers oxide 400 5-10 tablet by ity o f mg (241.3 00:00: mouth [place] mg 00 the Medical magnesium) morning. Branc h tablet magnesium 3-0 Yes [id number] 400mg Take 1 U nivers oxide 400 5-10 tablet by ity o f mg (241.3 00:00: mouth [place] mg 00 the Medical magnesium) morning. Branc h tablet magnesium 3-0 Yes [id number] 400mg Take 1 U nivers oxide 400 5-10 tablet by ity o f mg (241.3 00:00: mouth [place] mg 00 the Medical magnesium) morning. Branc h tablet magnesium 3-0 Yes [id number] 400mg Take 1 U nivers oxide 400 5-10 tablet by ity o f mg (241.3 00:00: mouth [place] mg 00 the Medical magnesium) morning. Branc h tablet magnesium 3-0 Yes [id number] 400mg Take 1 U nivers oxide 400 5-10 tablet by ity o f mg (241.3 00:00: mouth [place] mg 00 the Medical magnesium) morning. Branc h tablet magnesium 2023-0 Yes [id number] 400mg Take 1 U nivers oxide 400 5-10 tablet by ity o f mg (241.3 00:00: mouth [place] mg 00 the Medical magnesium) morning. Branc h tablet magnesium 3-0 Yes [id number] 400mg Take 1 U nivers oxide 400 5-10 tablet by ity o f mg (241.3 00:00: mouth [place] mg 00 the Medical magnesium) morning. Branc h tablet magnesium 3-0 Yes [id number] 400mg Take 1 U nivers oxide 400 5-10 tablet by ity o f mg (241.3 00:00: mouth [place] 00 the Medical magnesium) morning. Branc h tablet magnesium 3-0 Yes [id number] 400mg Take 1 [facility] oxide 400 5-10 tablet by ity o f mg (241.3 00:00: mouth [place] mg 00 the Medical magnesium) morning. Branc h tablet magnesium 3-0 Yes [id number] 400mg Take 1 [facility] oxide 400 5-10 tablet by ity o f mg (241.3 00:00: mouth [place] mg 00 the Medical magnesium) morning. Branc h tablet magnesium 3-0 Yes [id number] 400mg Take 1 [facility] n[facility] oxide 400 5-10 tablet by ity o f mg (241.3 00:00: mouth [place] mg 00 the Medical magnesium) morning. Branc h tablet magnesium 3-0 Yes [id number] 400mg Take 1 [facility] n[facility] oxide 400 5-10 tablet by ity o f mg (241.3 00:00: [place] mg 00 the Medical magnesium) morning. Branc h tablet magnesium 3-0 Yes [id number] 400mg Take 1 [facility] n[facility] oxide 400 5-10 tablet by ity o f mg (241.3 00:00: mouth [place] mg 00 the Medical magnesium) morning. Branc h tablet magnesium 3-0 Yes [id number] 400mg Take 1 [facility] n[facility] oxide 400 5-10 tablet by ity o f mg (241.3 00:00: mouth [place] mg 00 the Medical magnesium) morning. Branc h tablet magnesium 3-0 Yes [id number] 400mg Take 1 [facility] n[facility] oxide 400 5-10 tablet by ity o f mg (241.3 00:00: [place] mg 00 the Medical magnesium) morning. Branc h tablet magnesium 2022-0 3- No [id number] 400mg Take 1 [facility] oxide 400 5-10 -24 tablet by ity of mg (241.3 00:00: 00:00 mouth in [place] mg 00 :00 the Medical magnesium) morning. Branc h tablet magnesium 2022-0 3- No [id number] 400mg Take 1 [facility] oxide 400 5-10 -24 tablet by ity of mg (241.3 00:00: 00:00 mouth in [place] mg 00 :00 the Medical magnesium) morning. Branc h tablet fluconazole 2022-0 Yes [id number] 200mg Take 1 [facility] (DIFLUCAN) 5-01 tablet by ity of 200 mg 00:00: mouth in [place] tablet 00 the Medical morning. Branch fluconazole 2022-0 Yes [id number] 200mg Take 1 [facility] (DIFLUCAN) 5-01 tablet by ity of 200 mg 00:00: mouth in [place] tablet 00 the Medical morning. Branch fluconazole 2022-0 Yes [id number] 200mg Take 1 [facility] (DIFLUCAN) 5-01 tablet by ity of 200 mg 00:00: mouth in [place] tablet 00 the Medical morning. Branch fluconazole 3-0 Yes [id number] 200mg Take 1 [facility] (DIFLUCAN) 5-01 tablet by ity of 200 mg 00:00: mouth in [place] tablet 00 the Medical morning. Branch fluconazole 3-0 Yes [id number] 200mg Take 1 [facility] (DIFLUCAN) 5-01 tablet by ity of 200 mg 00:00: mouth in [place] tablet 00 the Medical morning. Branch fluconazole 3-0 Yes [id number] 200mg Take 1 [facility] (DIFLUCAN) 5-01 tablet by ity of 200 mg 00:00: mouth in [place] tablet 00 the Medical morning. Branch fluconazole 3-0 Yes [id number] 200mg Take 1 [facility] (DIFLUCAN) 5-01 tablet by ity of 200 mg 00:00: mouth in [place] tablet 00 the Medical morning. Branch fluconazole 3-0 Yes [id number] 200mg Take 1 [facility] (DIFLUCAN) 5-01 tablet by ity of 200 mg 00:00: mouth in [place] tablet 00 the Medical morning. Branch fluconazole 3-0 Yes [id number] 200mg Take 1 [facility] (DIFLUCAN) 5-01 tablet by ity of 200 mg 00:00: mouth in [place] tablet 00 the Medical morning. Branch fluconazole 3-0 Yes [id number] 200mg Take 1 [facility] (DIFLUCAN) 5-01 tablet by ity of 200 mg 00:00: mouth in [place] tablet 00 the Medical morning. Branch fluconazole 3-0 Yes [id number] 200mg Take 1 [facility] (DIFLUCAN) 5-01 tablet by ity of 200 mg 00:00: mouth in [place] tablet 00 the Medical morning. Branch fluconazole 3-0 Yes [id number] 200mg Take 1 [facility] (DIFLUCAN) 5-01 tablet by ity of 200 mg 00:00: mouth in [place] tablet 00 the Medical morning. Branch fluconazole 3-0 Yes [id number] 200mg Take 1 [facility] (DIFLUCAN) 5-01 tablet by ity of 200 mg 00:00: mouth in [place] tablet 00 the Medical morning. Branch fluconazole 3-0 Yes [id number] 200mg Take 1 [facility] (DIFLUCAN) 5-01 tablet by ity of 200 mg 00:00: mouth in [place] tablet 00 the Medical morning. Branch fluconazole 3-0 Yes [id number] 200mg Take 1 [facility] (DIFLUCAN) 5-01 tablet by ity of 200 mg 00:00: mouth in [place] tablet 00 the Medical morning. Branch fluconazole 3-0 Yes [id number] 200mg Take 1 [facility] (DIFLUCAN) 5-01 tablet by ity of 200 mg 00:00: mouth in [place] tablet 00 the Medical morning. Branch fluconazole 3-0 Yes [id number] 200mg Take 1 [facility] (DIFLUCAN) 5-01 tablet by ity of 200 mg 00:00: mouth in [place] tablet 00 the Medical morning. Branch fluconazole 3-0 Yes [id number] 200mg Take 1 [facility] (DIFLUCAN) 5-01 tablet by ity of 200 mg 00:00: mouth in [place] tablet 00 the Medical morning. Branch fluconazole 3-0 Yes [id number] 200mg Take 1 [facility] (DIFLUCAN) 5-01 tablet by ity of 200 mg 00:00: mouth in [place] tablet 00 the Medical morning. Branch fluconazole 2023-0 2023- No [id number] 200mg Take 1 [facility] (DIFLUCAN) 09-30 tablet by ity of 200 mg 00:00: 00:00 mouth in [place] tablet 00 :00 the Medical morning. [place] fluconazole 2022- No [id number] 200mg Take 1 [facility] (DIFLUCAN) 09-30 tablet by ity of 200 mg 00:00: 00:00 mouth in [place] tablet 00 :00 the Medical morning. [place] fluconazole 2022- No [id number] 200mg Take 1 [facility] (DIFLUCAN) 09-30 tablet by ity of 200 mg 00:00: 00:00 mouth in [place] tablet 00 :00 the Medical morning. [place] permethrin 2022- No [id number] Apply to [facility] (LICE 09-27 area(s) ity of TREATMENT, 00:00: 04:59 [place] PERMETHRIN, 00 :00 for 1 Medical ) 1 % dose. [place] lotion follow package directions aspirin 81 Yes [id number] 81mg Take 1 [facility] mg EC 4-27 9100 tablet by ity of tablet 00:00: mouth in [place] 00 the Medical morning. [place] aspirin 81 Yes [id number] 81mg Take 1 [facility] mg EC 4-27 9100 tablet by ity of tablet 00:00: mouth in [place] 00 the Medical morning. [place] aspirin 81 Yes [id number] 81mg Take 1 [facility] mg EC 4-27 9100 tablet by ity of tablet 00:00: mouth in [place] 00 the Medical morning. [place] aspirin 81 0 Yes [id number] 81mg Take 1 [facility] mg EC 4-27 9100 tablet by ity of tablet 00:00: mouth in [place] 00 the Medical morning. [place] aspirin 81 0 Yes [id number] 81mg Take 1 [facility] mg EC 4-27 9100 tablet by ity of tablet 00:00: mouth in [place] 00 the Medical morning. [place] aspirin 81 0 Yes [id number] 81mg Take 1 [facility] mg EC 4-27 9100 tablet by ity of tablet 00:00: mouth in [place] 00 the Medical morning. [place] aspirin 81 0 Yes [id number] 81mg Take 1 [facility] mg EC 4-27 9100 tablet by ity of tablet 00:00: mouth in [place] 00 the Medical morning. Branch aspirin 81 2022-0 Yes [id number] 81mg Take 1 [facility] mg EC 4-27 9100 tablet by ity of tablet 00:00: mouth in [place] 00 the Medical morning. Branch aspirin 81 2022-0 Yes [id number] 81mg Take 1 [facility] mg EC 4-27 9100 tablet by ity of tablet 00:00: mouth in [place] 00 the Medical morning. Branch aspirin 81 2022-0 Yes [id number] 81mg Take 1 [facility] mg EC 4-27 9100 tablet by ity of tablet 00:00: mouth in [place] 00 the Medical morning. Branch aspirin 81 2022-0 Yes [id number] 81mg Take 1 [facility] mg EC 4-27 9100 tablet by ity of tablet 00:00: mouth in [place] 00 the Medical morning. Branch aspirin 81 2022-0 Yes [id number] 81mg Take 1 [facility] mg EC 4-27 9100 tablet by ity of tablet 00:00: mouth in [place] 00 the Medical morning. Branch aspirin 81 2022-0 Yes [id number] 81mg Take 1 [facility] mg EC 4-27 9100 tablet by ity of tablet 00:00: mouth in [place] 00 the Medical morning. Branch aspirin 81 2022-0 Yes [id number] 81mg Take 1 [facility] mg EC 4-27 9100 tablet by ity of tablet 00:00: mouth in [place] 00 the Medical morning. Branch aspirin 81 2022-0 Yes [id number] 81mg Take 1 [facility] mg EC 4-27 9100 tablet by ity of tablet 00:00: mouth in [place] 00 the Medical morning. Branch aspirin 81 2022-0 Yes [id number] 81mg Take 1 [facility] mg EC 4-27 9100 tablet by ity of tablet 00:00: mouth in [place] 00 the Medical morning. Branch aspirin 81 2022-0 Yes [id number] 81mg Take 1 [facility] mg EC 4-27 9100 tablet by ity of tablet 00:00: mouth in [place] 00 the Medical morning. Branch aspirin 81 3-0 Yes [id number] 81mg Take 1 [facility] mg EC 4-27 9100 tablet by ity of tablet 00:00: mouth in [place] 00 the Medical morning. Branch aspirin 81 2022-0 Yes [id number] 81mg Take 1 [facility] mg EC 4-27 9100 tablet by ity of tablet 00:00: mouth in [place] 00 the Medical morning. Branch aspirin 81 2022-0 Yes [id number] 81mg Take 1 [facility] mg EC 4-27 9100 tablet by ity of tablet 00:00: mouth in [place] the Medical morning. Branch aspirin 81 2022-0 Yes [id number] 81mg Take 1 [facility] mg EC 4-27 9100 tablet by ity of tablet 00:00: mouth in [place] 00 the Medical morning. Branch aspirin 81 2022-0 Yes [id number] 81mg Take 1 [facility] mg EC 4-27 9100 tablet by ity of tablet 00:00: mouth in [place] 00 the Medical morning. Branch aspirin 81 2022-0 Yes [id number] 81mg Take 1 [facility] mg EC 4-27 9100 tablet by ity of tablet 00:00: mouth in [place] the Medical morning. Branch aspirin 81 2022-0 Yes [id number] 81mg Take 1 [facility] mg EC 4-27 9100 tablet by ity of tablet 00:00: mouth in [place] the Medical morning. Branch aspirin 81 2022-0 Yes [id number] 81mg Take 1 [facility] mg EC 4-27 9100 tablet by ity of tablet 00:00: mouth in [place] the Medical morning. Branch aspirin 81 2022-0 Yes [id number] 81mg Take 1 [facility] mg EC 4-27 9100 tablet by ity of tablet 00:00: mouth in [place] the Medical morning. Branch aspirin 81 2022-0 Yes [id number] 81mg Take 1 [facility] mg EC 4-27 9100 tablet by ity of tablet 00:00: mouth in [place] the Medical morning. Branch aspirin 81 2022-0 Yes [id number] 81mg Take 1 [facility] mg EC 4-27 9100 tablet by ity of tablet 00:00: mouth in [place] 00 the Medical morning. Branch aspirin 81 3-0 Yes [id number] 81mg Take 1 [facility] mg EC 4-27 9100 tablet by ity of tablet 00:00: mouth in [place] 00 the Medical morning. Branch aspirin 81 3-0 Yes [id number] 81mg Take 1 [facility] mg EC 4-27 9100 tablet by ity of tablet 00:00: mouth in [place] 00 the Medical morning. Branch aspirin 81 2022-0 Yes [id number] 81mg Take 1 [facility] mg EC 4-27 9100 tablet by ity of tablet 00:00: mouth in [place] 00 the Medical morning. [place] aspirin 81 0 Yes [id number] 81mg Take 1 [facility] mg EC 4-27 9100 tablet by ity of tablet 00:00: mouth in [place] 00 the Medical morning. [place] aspirin 81 0 Yes [id number] 81mg Take 1 [facility] mg EC 4-27 9100 tablet by ity of tablet 00:00: mouth in [place] 00 the Medical morning. Branch aspirin 81 0 Yes [id number] 81mg Take 1 [facility] mg EC 4-27 9100 tablet by ity of tablet 00:00: mouth in [place] 00 the Medical morning. [place] aspirin 81 2022- No [id number] 81mg Take 1 [facility] mg EC 09-26 9100 tablet by ity of tablet 00:00: 00:00 mouth in [place] 00 :00 the Medical morning. [place] aspirin 81 2022- No [id number] 81mg Take 1 [facility] mg EC 09-26 9100 tablet by ity of tablet 00:00: 00:00 mouth in [place] 00 :00 the Medical morning. [place] fluconazole No 200mg 200 mg, U nivers (DIFLUCAN) 08-08 Oral, ity of tablet 200 23:30: 23:29 ONCE, 1 [place] mg 00 :00 dose, On Medical [place] 08/08/22 Branch at 1730, CAITLYN
Re ason for Anti-Infec tive: Documented Infection< br>Documen noemi Infection Site: Urine
D uration of Therapy: Other (see Comments) Nitrofurant No 100mg 100 mg, U nivers oin&Nit. 08-08 Oral, ity of Macrocryst 23:30: 23:29 ONCE, 1 [place] (MACROBID) 00 :00 dose, On Medic al 100 mg [place] 08/08/22 Branch capsule 100 at 1730, mg Routine
Reason for Anti-Infec tive: Documented Infection< br>Documen noemi Infection Site: Urine
D uration of Therapy: Other (see Comments) acetaminoph 2022- No 650mg 650 mg, U nivers en 08-08-09 Oral, ity of (TYLENOL) 21:15: 20:25 [place]CE, [place] 650 00 :00 dose, On Medic al mg [place] 08/08/22 Branch at 1515, Routine Nitrofurant 2022-0 Yes [id number] 100mg Take 1 [facility] oin&Nit. 3-09 capsule by ity o f Macrocryst 00:00: mouth in [place] 100 mg 00 the Medical capsule morning Branch and 1 capsule in the evening. Nitrofurant 2022-0 Yes [id number] 100mg Take 1 [facility] oin&Nit. 3-09 capsule by ity o f Macrocryst 00:00: mouth in [place] 100 mg 00 the Medical capsule morning Branch and 1 capsule in the evening. Nitrofurant 2022-0 Yes [id number] 100mg Take 1 [facility] oin&Nit. 3-09 capsule by ity o f Macrocryst 00:00: mouth in [place] 100 mg 00 the Medical capsule morning Branch and 1 capsule in the evening. Nitrofurant 2022-0 Yes [id number] 100mg Take 1 [facility] oin&Nit. 3-09 capsule by ity o f Macrocryst 00:00: mouth in [place] 100 mg 00 the Medical capsule morning Branch and 1 capsule in the evening. Nitrofurant 2022-0 Yes [id number] 100mg Take 1 [facility] oin&Nit. 3-09 capsule by ity o f Macrocryst 00:00: mouth in [place] 100 mg 00 the Medical capsule morning Branch and 1 capsule in the evening. Nitrofurant 2022-0 Yes [id number] 100mg Take 1 [facility] oin&Nit. 3-09 capsule by ity o f Macrocryst 00:00: mouth in [place] 100 mg 00 the Medical capsule morning Branch and 1 capsule in the evening. Nitrofurant 2022-0 Yes [id number] 100mg Take 1 [facility] oin&Nit. 3-09 capsule by ity o f Macrocryst 00:00: mouth in [place] 100 mg 00 the Medical capsule morning Branch and 1 capsule in the evening. Nitrofurant 2022-0 Yes [id number] 100mg Take 1 [facility] oin&Nit. 3-09 capsule by ity o f Macrocryst 00:00: mouth in [place] 100 mg 00 the Medical capsule morning Branch and 1 capsule in the evening. Nitrofurant 2022- No [id number] 100mg Take 1 [facility] oin&Nit. 08-08 capsule by ity of Macrocryst 00:00: 00:00 mouth in [place] 100 mg 00 :00 the Medical capsule morning Branch and 1 capsule in the evening. acetaminoph 2022- No 650mg 650 mg, U nivers en 06-25 Oral, ity of (TYLENOL) 06:15: 05:22 ONCE, [place] 650 00 :00 dose, On Medic al mg Tue Branch 06/25/22 at 0015, Routine cefTRIAXone Yes 1000mg 1,000 mg, [facility] (ROCEPHIN) 06-06 Slow IV ity of injection 20:00: [place], Q24H [place] 1,000 mg 00 ABX, First Medic al dose on Branch [place] 06/06/22 at 1400, Until Discontinu ed, CAITLYN<br&gt ;Reason for Anti-Infec tive: Empiric Therapy for Suspected Infection acetaminoph 2022- No 1000mg 1,000 mg, [facility] en 06-0605 Oral, ity of (TYLENOL) 18:45: 18:39 ONCE, [place] tablet 00 :[place] dose, On Medical 1,000 mg [facility] 06/06/22 Branc h at 1245, [place] NaCl 0.9% 2022- No 1000mL at 999 Uni vers (NS) bolus 06-06-05 mL/hr, ity of infusion 17:15: 19:40 1,000 mL, [place] 1,000 mL 00 :00 IV Medical Infusion, Branch ONCE, 1 dose, On [place] 06/06/22 at 1115, STAT cephALEXin 2021-06- No [id number] 500mg Take 1 [facility] (KEFLEX) 07-15 capsule by ity of 500 mg 00:00: 05:59 mouth 4 [place] capsule 00 :00 (four) Medical times [place] daily for 10 days. cephALEXin 2021-06- No [id number] 500mg Take 1 [facility] (KEFLEX) 07-15 12-24 capsule by ity of 500 mg 00:00: 05:59 mouth 4 [place] capsule 00 :00 (four) Medical times Branch daily for 10 days. ampicillin 2021-06- No [id number] 500mg Take 1 [facility] 500 mg 2-12 12-23 capsule by ity of capsule 00:00: 05:59 mouth 4 [place] 00 :00 (four) Medical times Branch daily for 10 days. ampicillin 2021-06- No [id number] 500mg Take 1 [facility] 500 mg 2-12 12-23 capsule by ity of capsule 00:00: 05:59 mouth 4 [place] 00 :00 (four) Medical times Branch daily for 10 days. ampicillin 2021-06- No [id number] 500mg Take 1 [facility] 500 mg 2-12 12-23 capsule by ity of capsule 00:00: 05:59 mouth 4 [place] 00 :00 ([facility]) Medical times Branch daily for 10 days. ampicillin 2021-06- No [id number] 500mg Take 1 [facility] 500 mg 2-12 12-23 capsule by ity of capsule 00:00: 05:59 mouth 4 [place] 00 :00 ([facility]) Medical times Branch daily for 10 days. ampicillin 2021-06- No [id number] 500mg Take 1 [facility] 500 mg 2-12 12-13 capsule by ity of capsule 00:00: 00:00 mouth 4 [place] 00 :00 ([facility]) Medical times Branch daily for 10 days. ampicillin 2021-06- No [id number] 500mg Take 1 [facility] 500 mg 2-12 12-13 capsule by ity of capsule 00:00: 00:00 mouth 4 [place] 00 :00 ([facility]) Medical times Branch daily for 10 days. ampicillin 2021-06- No [id number] 500mg Take 1 [facility] 500 mg 2-12 12-13 capsule by ity of capsule 00:00: 00:00 mouth 4 [place] 00 :00 ([facility]) Medical times Branch daily for 10 days. No known 2021-06 No No known Unive rs medications 2-09 medication it y of 10:10: s [place] 30 Medical Branch PNV 67-iron 2021-06 Yes [id number] 1{each} Take 1 [facility] ps-folate 2-09 Each by ity of no.1-dha 00:00: mouth [place] (VITAFOL 00 daily. Medical ULTRA) 29 Branch mg iron- 1 mg-200 mg Cap PNV 67-iron 2021-06 Yes [id number] 1{each} Take 1 [facility] ps-folate 2-09 Each by ity of no.1-dha 00:00: mouth [place] (VITAFOL 00 daily. Medical ULTRA) 29 Branch mg iron- 1 mg-200 mg Cap PNV 67-iron 2021-06 Yes [id number] 1{each} Take 1 [facility] ps-folate 2-09 Each by ity of no.1-dha 00:00: mouth [place] (VITAFOL 00 daily. Medical ULTRA) 29 Branch mg iron- 1 mg-200 mg Cap PNV 67-iron 2021-06 Yes [id number] 1{each} Take 1 [facility] ps-folate 2-09 Each by ity of no.1-dha 00:00: mouth [place] (VITAFOL 00 daily. Medical ULTRA) 29 Branch mg iron- 1 mg-200 mg Cap PNV 67-iron 2021-06 Yes [id number] 1{each} Take 1 [facility] ps-folate 2-09 Each by ity of no.1-dha 00:00: mouth [place] (VITAFOL 00 daily. Medical ULTRA) 29 Branch mg iron- 1 mg-200 mg Cap PNV 67-iron 2021-06 Yes [id number] 1{each} Take 1 [facility] ps-folate 2-09 Each by ity of no.1-dha 00:00: mouth [place] (VITAFOL 00 daily. Medical ULTRA) 29 Branch mg iron- 1 mg-200 mg Cap PNV 67-iron 2021-06 Yes [id number] 1{each} Take 1 [facility] ps-folate 2-09 Each by ity of no.1-dha 00:00: mouth [place] (VITAFOL 00 daily. Medical ULTRA) 29 Branch mg iron- 1 mg-200 mg Cap PNV 67-iron 2021-06 Yes [id number] 1{each} Take 1 [facility] ps-folate 2-09 Each by ity of no.1-dha 00:00: mouth [place] (VITAFOL 00 daily. Medical ULTRA) 29 Branch mg iron- 1 mg-200 mg Cap PNV 67-iron 2021-06 Yes [id number] 1{each} Take 1 [facility] ps-folate 2-09 Each by ity of no.1-dha 00:00: mouth [place] (VITAFOL 00 daily. Medical ULTRA) 29 Branch mg iron- 1 mg-200 mg Cap PNV 67-iron 2021-06 Yes [id number] 1{each} Take 1 [facility] ps-folate 2-09 Each by ity of no.1-dha 00:00: mouth [place] (VITAFOL 00 daily. Medical ULTRA) 29 Branch mg iron- 1 mg-200 mg Cap PNV 67-iron 2021-06 Yes [id number] 1{each} Take 1 [facility] ps-folate 2-09 Each by ity of no.1-dha 00:00: mouth [place] (VITAFOL 00 daily. Medical ULTRA) 29 Branch mg iron- 1 mg-200 mg Cap PNV 67-iron 2021-06 Yes [id number] 1{each} Take 1 [facility] ps-folate 2-09 Each by ity of no.1-dha 00:00: mouth [place] (VITAFOL 00 daily. Medical ULTRA) 29 Branch mg iron- 1 mg-200 mg Cap PNV 67-iron 2021-06 Yes [id number] 1{each} Take 1 [facility] ps-folate 2-09 Each by ity of no.1-dha 00:00: mouth [place] (VITAFOL 00 daily. Medical ULTRA) 29 Branch mg iron- 1 mg-200 mg Cap PNV 67-iron 2021-06 Yes [id number] 1{each} Take 1 [facility] ps-folate 2-09 Each by ity of no.1-dha 00:00: mouth [place] (VITAFOL 00 daily. Medical ULTRA) 29 Branch mg iron- 1 mg-200 mg Cap PNV 67-iron 2021-06 Yes [id number] 1{each} Take 1 [facility] ps-folate 2-09 Each by ity of no.1-dha 00:00: mouth [place] (VITAFOL 00 daily. Medical ULTRA) 29 Branch mg iron- 1 mg-200 mg Cap PNV 67-iron 2021-06 Yes [id number] 1{each} Take 1 [facility] ps-folate 2-09 Each by ity of no.1-dha 00:00: mouth [place] (VITAFOL 00 daily. Medical ULTRA) 29 Branch mg iron- 1 mg-200 mg Cap PNV 67-iron 2021-06 Yes [id number] 1{each} Take 1 [facility] ps-folate 2-09 Each by ity of no.1-dha 00:00: mouth [place] (VITAFOL 00 daily. Medical ULTRA) 29 Branch mg iron- 1 mg-200 mg Cap PNV 67-iron 2021-06 Yes [id number] 1{each} Take 1 [facility] ps-folate 2-09 Each by ity of no.1-dha 00:00: mouth [place] (VITAFOL 00 daily. Medical ULTRA) 29 Branch mg iron- 1 mg-200 mg Cap PNV 67-iron 2021-06 Yes [id number] 1{each} Take 1 [facility] ps-folate 2-09 Each by ity of no.1-dha 00:00: mouth [place] (VITAFOL 00 daily. Medical ULTRA) 29 Branch mg iron- 1 mg-200 mg Cap PNV 67-iron 2021-06 Yes [id number] 1{each} Take 1 [facility] ps-folate 2-09 Each by ity of no.1-dha 00:00: mouth [place] (VITAFOL 00 daily. Medical ULTRA) 29 Branch mg iron- 1 mg-200 mg Cap PNV 67-iron 2021-06 Yes [id number] 1{each} Take 1 [facility] ps-folate 2-09 Each by ity of no.1-dha 00:00: mouth [place] (VITAFOL 00 daily. Medical ULTRA) 29 Branch mg iron- 1 mg-200 mg Cap PNV 67-iron 2021-06 Yes [id number] 1{each} Take 1 [facility] ps-folate 2-09 Each by ity of no.1-dha 00:00: mouth [place] (VITAFOL 00 daily. Medical ULTRA) 29 Branch mg iron- 1 mg-200 mg Cap PNV 67-iron 2021-06 Yes [id number] 1{each} Take 1 [facility] ps-folate 2-09 Each by ity of no.1-dha 00:00: mouth [place] (VITAFOL 00 daily. Medical ULTRA) 29 Branch mg iron- 1 mg-200 mg Cap PNV 67-iron 2021-06 Yes [id number] 1{each} Take 1 [facility] ps-folate 2-09 Each by ity of no.1-dha 00:00: mouth [place] (VITAFOL 00 daily. Medical ULTRA) 29 Branch mg iron- 1 mg-200 mg Cap PNV 67-iron 2021-06 Yes [id number] 1{each} Take 1 [facility] ps-folate 2-09 Each by ity of no.1-dha 00:00: mouth [place] (VITAFOL 00 daily. Medical ULTRA) 29 Branch mg iron- 1 mg-200 mg Cap PNV 67-iron 2021-06 Yes [id number] 1{each} Take 1 [facility] ps-folate 2-09 Each by ity of no.1-dha 00:00: mouth [place] (VITAFOL 00 daily. Medical ULTRA) 29 Branch mg iron- 1 mg-200 mg Cap PNV 67-iron 2021-06 Yes [id number] 1{each} Take 1 [facility] ps-folate 2-09 Each by ity of no.1-dha 00:00: mouth [place] (VITAFOL 00 daily. Medical ULTRA) 29 Branch mg iron- 1 mg-200 mg Cap PNV 67-iron 2021-06 Yes [id number] 1{each} Take 1 [facility] ps-folate 2-09 Each by ity of no.1-dha 00:00: mouth [place] (VITAFOL 00 daily. Medical ULTRA) 29 Branch mg iron- 1 mg-200 mg Cap PNV 67-iron 2021-06 Yes [id number] 1{each} Take 1 [facility] ps-folate 2-09 Each by ity of no.1-dha 00:00: mouth [place] (VITAFOL 00 daily. Medical ULTRA) 29 Branch mg iron- 1 mg-200 mg Cap PNV 67-iron 2021-06 Yes [id number] 1{each} Take 1 [facility] ps-folate 2-09 Each by ity of no.1-dha 00:00: mouth [place] (VITAFOL 00 daily. Medical ULTRA) 29 Branch mg iron- 1 mg-200 mg Cap PNV 67-iron 2021-06 Yes [id number] 1{each} Take 1 [facility] ps-folate 2-09 Each by ity of no.1-dha 00:00: mouth [place] (VITAFOL 00 daily. Medical ULTRA) 29 Branch mg iron- 1 mg-200 mg Cap PNV 67-iron 2021-06 Yes [id number] 1{each} Take 1 [facility] ps-folate 2-09 Each by ity of no.1-dha 00:00: mouth [place] (VITAFOL 00 daily. Medical ULTRA) 29 Branch mg iron- 1 mg-200 mg Cap PNV 67-iron 2021-06 Yes [id number] 1{each} Take 1 [facility] ps-folate 2-09 Each by ity of no.1-dha 00:00: mouth [place] (VITAFOL 00 daily. Medical ULTRA) 29 Branch mg iron- 1 mg-200 mg Cap PNV 67-iron 2021-06 Yes [id number] 1{each} Take 1 [facility] ps-folate 2-09 Each by ity of no.1-dha 00:00: mouth [place] (VITAFOL 00 daily. Medical ULTRA) 29 Branch mg iron- 1 mg-200 mg Cap PNV 67-iron 2021-06 Yes [id number] 1{each} Take 1 [facility] ps-folate 2-09 Each by ity of no.1-dha 00:00: mouth [place] (VITAFOL 00 daily. Medical ULTRA) 29 Branch mg iron- 1 mg-200 mg Cap PNV 67-iron 2021-06 Yes [id number] 1{each} Take 1 [facility] ps-folate 2-09 Each by ity of no.1-dha 00:00: mouth [place] (VITAFOL 00 daily. Medical ULTRA) 29 Branch mg iron- 1 mg-200 mg Cap PNV 67-iron 2021-06 Yes [id number] 1{each} Take 1 [facility] ps-folate 2-09 Each by ity of no.1-dha 00:00: mouth [place] (VITAFOL 00 daily. Medical ULTRA) 29 Branch mg iron- 1 mg-200 mg Cap PNV 67-iron 2021-06 Yes [id number] 1{each} Take 1 [facility] ps-folate 2-09 Each by ity of no.1-dha 00:00: mouth [place] (VITAFOL 00 daily. Medical ULTRA) 29 Branch mg iron- 1 mg-200 mg Cap PNV 67-iron 2021-06 Yes [id number] 1{each} Take 1 [facility] ps-folate 2-09 Each by ity of no.1-dha 00:00: mouth [place] (VITAFOL 00 daily. Medical ULTRA) 29 Branch mg iron- 1 mg-200 mg Cap PNV 67-iron 2021-06 Yes [id number] 1{each} Take 1 [facility] ps-folate 2-09 Each by ity of no.1-dha 00:00: mouth [place] (VITAFOL 00 daily. Medical ULTRA) 29 Branch mg iron- 1 mg-200 mg Cap PNV 67-iron 2021-06 Yes [id number] 1{each} Take 1 [facility] ps-folate 2-09 Each by ity of no.1-dha 00:00: mouth [place] (VITAFOL 00 daily. Medical ULTRA) 29 Branch mg iron- 1 mg-200 mg Cap PNV 67-iron 2021-06 Yes [id number] 1{each} Take 1 [facility] ps-folate 2-09 Each by ity of no.1-dha 00:00: mouth [place] (VITAFOL 00 daily. Medical ULTRA) 29 Branch mg iron- 1 mg-200 mg Cap PNV 67-iron 2021-06 Yes [id number] 1{each} Take 1 [facility] ps-folate 2-09 Each by ity of no.1-dha 00:00: mouth [place] (VITAFOL 00 daily. Medical ULTRA) 29 Branch mg iron- 1 mg-200 mg Cap PNV 67-iron 2021-06 Yes [id number] 1{each} Take 1 [facility] ps-folate 2-09 Each by ity of no.1-dha 00:00: mouth [place] (VITAFOL 00 daily. Medical ULTRA) 29 Branch mg iron- 1 mg-200 mg Cap PNV 67-iron 2021-06 Yes [id number] 1{each} Take 1 Univers ps-folate 2-09 Each by ity of no.1-dha 00:00: mouth [place] (VITAFOL 00 daily. Medical ULTRA) 29 Branch mg iron- 1 mg-200 mg Cap PNV 67-iron 2021-06 Yes [id number] 1{each} Take 1 Univers ps-folate 2-09 Each by ity of no.1-dha 00:00: mouth [place] (VITAFOL 00 daily. Medical ULTRA) 29 Branch mg iron- 1 mg-200 mg Cap PNV 67-iron 2021-06 Yes [id number] 1{each} Take 1 [facility] ps-folate 2-09 Each by ity of no.1-dha 00:00: mouth [place] (VITAFOL 00 daily. Medical ULTRA) 29 Branch mg iron- 1 mg-200 mg Cap PNV 67-iron 2021-06 Yes [id number] 1{each} Take 1 [facility] ps-folate 2-09 Each by ity of no.1-dha 00:00: mouth [place] (VITAFOL 00 daily. Medical ULTRA) 29 Branch mg iron- 1 mg-200 mg Cap PNV 67-iron 2021-06 Yes [id number] 1{each} Take 1 Univers ps-folate 2-09 Each by ity of no.1-dha 00:00: mouth [place] (VITAFOL 00 daily. Medical ULTRA) 29 Branch mg iron- 1 mg-200 mg Cap PNV 67-iron 2021-06 Yes [id number] 1{each} Take 1 [facility] ps-folate 2-09 Each by ity of no.1-dha 00:00: mouth [place] (VITAFOL 00 daily. Medical ULTRA) 29 Branch mg iron- 1 mg-200 mg Cap PNV 67-iron 2021-06 Yes [id number] 1{each} Take 1 [facility] ps-folate 2-09 Each by ity of no.1-dha 00:00: mouth [place] (VITAFOL 00 daily. Medical ULTRA) 29 Branch mg iron- 1 mg-200 mg Cap PNV 67-iron 2021-06 Yes [id number] 1{each} Take 1 [facility] ps-folate 2-09 Each by ity of no.1-dha 00:00: mouth [place] (VITAFOL 00 daily. Medical ULTRA) 29 Branch mg iron- 1 mg-200 mg Cap PNV 67-iron 2021-06 Yes [id number] 1{each} Take 1 Univers ps-folate 2-09 Each by ity of no.1-dha 00:00: mouth [place] (VITAFOL 00 daily. Medical ULTRA) 29 Branch mg iron- 1 mg-200 mg Cap PNV 67-iron 2021-06 Yes [id number] 1{each} Take 1 [facility] ps-folate 2-09 Each by ity of no.1-dha 00:00: mouth [place] (VITAFOL 00 daily. Medical ULTRA) 29 Branch mg iron- 1 mg-200 mg Cap PNV 67-iron 2021-06 Yes [id number] 1{each} Take 1 [facility] ps-folate 2-09 Each by ity of no.1-dha 00:00: mouth [place] (VITAFOL 00 daily. Medical ULTRA) 29 Branch mg iron- 1 mg-200 mg Cap PNV 67-iron 2021-06 Yes [id number] 1{each} Take 1 [facility] ps-folate 2-09 Each by ity of no.1-dha 00:00: mouth [place] (VITAFOL 00 daily. Medical ULTRA) 29 Branch mg iron- 1 mg-200 mg Cap PNV 67-iron 2021-06 Yes [id number] 1{each} Take 1 [facility] ps-folate 2-09 Each by ity of no.1-dha 00:00: mouth [place] (VITAFOL 00 daily. Medical ULTRA) 29 Branch mg iron- 1 mg-200 mg Cap PNV 67-iron 2021-06 Yes [id number] 1{each} Take 1 [facility] ps-folate 2-09 Each by ity of no.1-dha 00:00: mouth [place] (VITAFOL 00 daily. Medical ULTRA) 29 Branch mg iron- 1 mg-200 mg Cap PNV 67-iron 2021-06 Yes [id number] 1{each} Take 1 [facility] ps-folate 2-09 Each by ity of no.1-dha 00:00: mouth [place] (VITAFOL 00 daily. Medical ULTRA) 29 Branch mg iron- 1 mg-200 mg Cap PNV 67-iron 2021-06 Yes [id number] 1{each} Take 1 [facility] ps-folate 2-09 Each by ity of no.1-dha 00:00: mouth [place] (VITAFOL 00 daily. Medical ULTRA) 29 Branch mg iron- 1 mg-200 mg Cap PNV 67-iron 2021-06 Yes [id number] 1{each} Take 1 [facility] ps-folate 2-09 Each by ity of no.1-dha 00:00: mouth [place] (VITAFOL 00 daily. Medical ULTRA) 29 Branch mg iron- 1 mg-200 mg Cap PNV 67-iron 2021-06 Yes [id number] 1{each} Take 1 [facility] ps-folate 2-09 Each by ity of no.1-dha 00:00: mouth [place] (VITAFOL 00 daily. Medical ULTRA) 29 Branch mg iron- 1 mg-200 mg Cap PNV 67-iron 2021-06- No [id number] 1{each} Take 1 [facility] ps-folate 2-09 06-24 Each by ity of no.1-dha 00:00: 00:00 mouth [place] (VITAFOL 00 :00 daily. Medical ULTRA) 29 Branch mg iron- 1 mg-200 mg Cap PNV 67-iron 2021-06- No [id number] 1{each} Take 1 [facility] ps-folate 2-09 06-24 Each by ity of no.1-dha 00:00: 00:00 mouth [place] (VITAFOL 00 :00 daily. Medical ULTRA) 29 Branch mg iron- 1 mg-200 mg Cap terconazole 2021-06- No [id number] 80mg Insert 1 Univers 80 mg 07-11 Suppositor ity of vaginal 00:00: 05:59 y into [place] suppository 00 :00 vagina at [facility] for 3 days. terconazole 2021-06- No [id number] 80mg Insert 1 Univers 80 mg 205-14 Suppositor ity of vaginal 00:00: 05:59 y into [place] suppository 00 :00 vagina at [facility] for 3 days. terconazole 2021-06- No [id number] 80mg Insert 1 Univers 80 mg 07-11 Suppositor ity of vaginal 00:00: 05:59 y into [place] suppository 00 :00 vagina at [facility] for 3 days. terconazole 2021-06- No [id number] 80mg Insert 1 Univers 80 mg 07-11 Suppositor ity of vaginal 00:00: 05:59 y into [place] suppository 00 :00 vagina at [facility] for 3 days. terconazole 2021-06- No [id number] 80mg Insert 1 Univers 80 mg 07-11 Suppositor ity of vaginal 00:00: 05:59 y into [place] suppository 00 :00 vagina at [facility] for 3 days. terconazole 2021-06- No [id number] 80mg Insert 1 Univers 80 mg 07-11 Suppositor ity of vaginal 00:00: 05:59 y into [place] suppository 00 :00 vagina at [facility] for 3 days. terconazole 2021-06- No [id number] 80mg Insert 1 Univers 80 mg 07-11 Suppositor ity of vaginal 00:00: 05:59 y into [place] suppository 00 :00 vagina at [facility] for 3 days. docusate 2019- Yes [id number] 240mg Take 1 U nivers calcium 240 8-12 capsule by it y of mg capsule 00:00: mouth [place] 00 daily as Medical needed for Branch Constipati on. ibuprofen 2018- Yes [id number] 600mg Take 1 [facility] 600 mg 8-12 tablet by ity of tablet 00:00: mouth [place] 00 every 6 Medical (six) Branch hours. simethicone 2019-0 Yes [id number] 160mg Take 2 Univers 80 mg 8-12 tablets by ity of chewable 00:00: mouth [place] tablet 00 after Medical meals and Branch at bedtime as needed for Gas. docusate 2019-0 Yes [id number] 240mg Take 1 U nivers calcium 240 8-12 capsule by it y of mg capsule 00:00: mouth once [place] 00 daily as Medical needed for Branch Constipati on. ibuprofen 2019-0 Yes [id number] 600mg Take 1 [facility] 600 mg 8-12 tablet by ity of tablet 00:00: mouth [place] 00 every 6 Medical (six) Branch hours. simethicone 2019-0 Yes [id number] 160mg Take 2 Univers 80 mg 8-12 tablets by ity of chewable 00:00: mouth [place] tablet 00 after Medical meals and Branch at bedtime as needed for Gas. docusate 20190 Yes [id number] 240mg Take 1 U nivers calcium 240 8-12 capsule by it y of mg capsule 00:00: mouth once [place] 00 daily as Medical needed for Branch Constipati on. ibuprofen 2018-0 Yes [id number] 600mg Take 1 [facility] 600 mg 8-12 tablet by ity of tablet 00:00: mouth [place] 00 every 6 Medical (six) Branch hours. simethicone 2019-0 Yes [id number] 160mg Take 2 Univers 80 mg 8-12 tablets by ity of chewable 00:00: mouth [place] tablet 00 after Medical meals and Branch at bedtime as needed for Gas. docusate 2019-0 Yes [id number] 240mg Take 1 U nivers calcium 240 8-12 capsule by it y of mg capsule 00:00: mouth once [place] 00 daily as Medical needed for Branch Constipati on. ibuprofen 2019-0 Yes [id number] 600mg Take 1 [facility] 600 mg 8-12 tablet by ity of tablet 00:00: mouth [place] 00 every 6 Medical (six) Branch hours. simethicone 2019-0 Yes [id number] 160mg Take 2 Univers 80 mg 8-12 tablets by ity of chewable 00:00: mouth [place] tablet 00 after Medical meals and Branch at bedtime as needed for Gas. docusate 2019-0 Yes [id number] 240mg Take 1 U nivers calcium 240 8-12 capsule by it y of mg capsule 00:00: mouth once [place] 00 daily as Medical needed for Branch Constipati on. ibuprofen 2019-0 Yes [id number] 600mg Take 1 [facility] 600 mg 8-12 tablet by ity of tablet 00:00: mouth [place] 00 every 6 Medical (six) Branch hours. simethicone 2019-0 Yes [id number] 160mg Take 2 Univers 80 mg 8-12 tablets by ity of chewable 00:00: mouth [place] tablet 00 after Medical meals and Branch at bedtime as needed for Gas. docusate 20190 Yes [id number] 240mg Take 1 U nivers calcium 240 8-12 capsule by it y of mg capsule 00:00: mouth once [place] 00 daily as Medical needed for Branch Constipati on. ibuprofen 0 Yes [id number] 600mg Take 1 [facility] 600 mg 8-12 tablet by ity of tablet 00:00: mouth [place] 00 every 6 Medical (six) Branch hours. simethicone 0 Yes [id number] 160mg Take 2 Univers 80 mg 8-12 tablets by ity of chewable 00:00: mouth [place] tablet 00 after Medical meals and Branch at bedtime as needed for Gas. docusate 0 Yes [id number] 240mg Take 1 U nivers calcium 240 8-12 capsule by it y of mg capsule 00:00: mouth once [place] 00 daily as Medical needed for Branch Constipati on. ibuprofen 0 Yes [id number] 600mg Take 1 Univers 600 mg 8-12 tablet by ity of tablet 00:00: mouth [place] 00 every 6 Medical (six) Branch hours. simethicone 20190 Yes [id number] 160mg Take 2 Univers 80 mg 8-12 tablets by ity of chewable 00:00: mouth [place] tablet 00 after Medical meals and Branch at bedtime as needed for Gas. docusate 20190 Yes [id number] 240mg Take 1 U nivers calcium 240 8-12 capsule by it y of mg capsule 00:00: mouth once [place] 00 daily as Medical needed for Branch Constipati on. ibuprofen 0 Yes [id number] 600mg Take 1 Univers 600 mg 8-12 tablet by ity of tablet 00:00: mouth [place] 00 every 6 Medical (six) Branch hours. simethicone 2019-0 Yes [id number] 160mg Take 2 Univers 80 mg 8-12 tablets by ity of chewable 00:00: mouth [place] tablet 00 after Medical meals and Branch at bedtime as needed for Gas. docusate 2021- No [id number] 240mg Take 1 Univers calcium 240 01-11 capsule by i ty of mg capsule 00:00: 00:00 mouth once [place] 00 :00 daily as Medical needed for Branch Constipati on. ibuprofen 2021- No [id number] 600mg Take 1 Univers 600 mg 01-11 tablet by ity of tablet 00:00: 00:00 mouth [place] 00 :00 every 6 Medical (six) Branch hours. simethicone 2021- No [id number] 160mg Take 2 Univers 80 mg 01-11 tablets by ity of chewable 00:00: 00:00 mouth [place] tablet 00 :00 after Medical meals and Branch at bedtime as needed for Gas. terconazole Yes [id number] 1{appli Insert 1 Univers (TERAZOL 7) 3-20 cator} Applicator ity of 0.4 % 00:00: into [place] vaginal 00 vagina at Medical cream bedtime. [place] terconazole Yes [id number] 1{appli Insert 1 Univers (TERAZOL 7) 3-20 cator} Applicator ity of 0.4 % 00:00: into [place] vaginal 00 vagina at Medical cream bedtime. [place] terconazole Yes [id number] 1{appli Insert 1 Univers (TERAZOL 7) 3-20 cator} Applicator ity of 0.4 % 00:00: into [place] vaginal 00 vagina at Medical cream bedtime. [place] terconazole Yes [id number] 1{appli Insert 1 Univers (TERAZOL 7) 3-20 cator} Applicator ity of 0.4 % 00:00: into [place] vaginal 00 vagina at Medical cream bedtime. [place] terconazole Yes [id number] 1{appli Insert 1 Univers (TERAZOL 7) 3-20 cator} Applicator ity of 0.4 % 00:00: into [place] vaginal 00 vagina at Medical cream bedtime. [place] terconazole Yes [id number] 1{appli Insert 1 Univers (TERAZOL 7) 3-20 cator} Applicator ity of 0.4 % 00:00: into [place] vaginal 00 vagina at Medical cream bedtime. Branch terconazole Yes [id number] 1{appli Insert 1 Univers (TERAZOL 7) 3-20 cator} Applicator ity of 0.4 % 00:00: into [place] vaginal 00 vagina at Medical cream bedtime. Branch terconazole Yes [id number] 1{appli Insert 1 Univers (TERAZOL 7) 3-20 cator} Applicator ity of 0.4 % 00:00: into [place] vaginal 00 vagina at Medical cream bedtime. Branch terconazole 202- No [id number] 1{appli Insert 1 Univers (TERAZOL 7) 3-20 12-09 cator} Applicator ity of 0.4 % 00:00: 00:00 into [place] vaginal 00 :00 vagina at Medical cream bedtime. Branch Yes [id number] 1{packe Take 1 Univers vit 3-13 t} Packet by ity of 33-iron-fol 00:00: mouth [place] ic-dha 00 daily. Medical ([facility] Branch + DHA) 29 mg iron-1 mg -250 mg combo pack Yes [id number] 1{packe Take 1 Univers vit 3-13 t} Packet by ity of 33-iron-fol 00:00: mouth [place] ic-dha 00 daily. Medical ([facility] Branch + DHA) 29 mg iron-1 mg -250 mg combo pack Yes [id number] 1{packe Take 1 Univers vit 3-13 t} Packet by ity of 33-iron-fol 00:00: mouth [place] ic-dha daily. Medical ([facility] Branch + DHA) 29 mg iron-1 mg -250 mg combo pack Yes [id number] 1{packe Take 1 Univers vit 3-13 t} Packet by ity of 33-iron-fol 00:00: mouth [place] ic-dha 00 daily. Medical ([facility] Branch + DHA) 29 mg iron-1 mg -250 mg combo pack Yes [id number] 1{packe Take 1 Univers vit 3-13 t} Packet by ity of 33-iron-fol 00:00: mouth [place] ic-dha 00 daily. Medical ([facility] Branch + DHA) 29 mg iron-1 mg -250 mg combo pack Yes [id number] 1{packe Take 1 Univers vit 3-13 t} Packet by ity of 33-iron-fol 00:00: mouth [place] ic-dha 00 daily. Medical ([facility]-OB Branch + DHA) 29 mg iron-1 mg -250 mg combo pack Yes [id number] 1{packe Take 1 Univers vit 3-13 t} Packet by ity of 33-iron-fol 00:00: mouth [place] ic-dha 00 daily. Medical ([facility] Branch + DHA) 29 mg iron-1 mg -250 mg combo pack Yes [id number] 1{packe Take 1 Univers vit 3-13 t} Packet by ity of 33-iron-fol 00:00: mouth [place] ic-dha 00 daily. Medical (SELECT-OB Branch + DHA) 29 mg iron-1 mg -250 mg combo pack 2- No [id number] 1{packe Take 1 Univers vit 3-13 12-09 t} Packet by ity of 33-iron-fol 00:00: 00:00 [place] ic-dha 00 :00 daily. Medical (SELECT-OB Branch + DHA) 29 mg iron-1 mg -250 mg combo pack Vital Signs Vital Name Observation Time Observation Value Comments Source Systolic blood 2022-12-02 15:34:00 155 [facility] Diastolic blood 2022-12-02 15:34:00 103 mm[Hg] [facility] Heart rate 2022-12-02 15:34:00 63 /min [facility] Body temperature 2022-12-02 15:34:00 36.44 [facility] Respiratory rate 2022-12-02 15:34:00 18 /min [facility] Body height 2022-12-02 15:34:00 160 cm [facility] Body weight 2022-12-02 15:34:00 111.131 kg [facility] BMI 2022-12-02 15:34:00 43.40 kg/m2 [facility] Oxygen saturation in 2022-12-02 15:34:00 98 /min University of Arterial blood by [facility] Pulse oximetry Branch Systolic blood 2022-11-29 21:05:00 136 mm[Hg] Univer sity of pressure [place] [facility] Diastolic blood 2022-11-29 21:05:00 86 mm[Hg] Unive rsity of pressure [place] [facility] Systolic blood 2022-11-29 21:00:00 153 mm[Hg] Univer sity of pressure [place] [facility] Diastolic blood 2022-11-29 21:00:00 93 mm[Hg] Unive rsity of pressure [place] [facility] Heart rate 2022-11-29 21:00:00 78 /min Universi ty of [place] [facility] Body temperature 2022-11-29 21:00:00 36.44 [facility] Univ ersity of [place] [facility] Respiratory rate 2022-11-29 21:00:00 20 /min Univ ersity of [place] [facility] Body height 2022-11-29 21:00:00 160 cm Universi ty of [place] [facility] Body weight 2022-11-29 21:00:00 113.002 kg Universi ty of [place] [facility] BMI 2022-11-29 21:00:00 44.13 kg/m2 Universi ty of [place] [facility] Systolic blood 2022-11-23 17:53:00 132 mm[Hg] Univer sity of pressure [place] [facility] Diastolic blood 2022-11-23 17:53:00 71 mm[Hg] Unive rsity of pressure [place] [facility] Heart rate 2022-11-23 17:53:00 84 /min Universi ty of [place] [facility] Body temperature 2022-11-23 17:53:00 36.61 [facility] ersity of [place] [facility] Respiratory rate 2022-11-23 17:53:00 18 /min Univ ersity of [place] [facility] Oxygen saturation in 2022-11-23 17:53:00 100 /min [facility] of Arterial blood by [facility] Pulse oximetry Branch Body height 2022-11-22 10:50:00 157.5 cm Universi ty of [place] [facility] Body weight 2022-11-22 10:50:00 116.847 kg Universi ty of [place] [facility] BMI 2022-11-22 10:50:00 47.12 kg/m2 Universi ty of [place] [facility] Systolic blood 2022-11-22 13:45:00 99 mm[Hg] Univer sity of pressure [place] [facility] Diastolic blood 2022-11-22 13:45:00 50 mm[Hg] Unive rsity of pressure [place] [facility] Heart rate 2022-11-22 13:45:00 87 /min Universi ty of [place] [facility] Body temperature 2022-11-22 13:45:00 36.33 Franc[facility]a Univ ersity of [facility] Oxygen saturation in 2022-11-22 13:45:00 92 /min University of Arterial blood by [facility] Pulse oximetry Branch Respiratory rate 2022-11-22 10:50:00 18 /min Univ ersity of [place] [facility] Body height 2022-11-22 10:50:00 157.5 cm Universi ty of [place] [facility] Body weight 2022-11-22 10:50:00 116.847 kg Universi ty of [place] [facility] BMI 2022-11-22 10:50:00 47.12 kg/m2 Universi ty of [place] [facility] Systolic blood 2022-11-21 18:18:00 125 mm[Hg] Univer sity of pressure [place] [facility] Diastolic blood 2022-11-21 18:18:00 87 mm[Hg] Unive rsity of pressure [place] [facility] Heart rate 2022-11-21 18:18:00 97 /min Universi ty of [place] [facility] Body temperature 2022-11-21 18:18:00 36.83 [facility] Univ ersity of [place] [facility] Respiratory rate 2022-11-21 18:18:00 18 /min Univ ersity of [place] [facility] Body height 2022-11-21 18:18:00 157.5 cm Universi ty of [place] [facility] Body weight 2022-11-21 18:18:00 117.028 kg Universi ty of [place] [facility] BMI 2022-11-21 18:18:00 47.19 kg/m2 Universi ty of [place] [facility] Systolic blood 2022-11-19 21:01:00 120 mm[Hg] Univer sity of pressure [place] [facility] Diastolic blood 2022-11-19 21:01:00 68 mm[Hg] Unive rsity of pressure [place] [facility] Heart rate 2022-11-19 21:01:00 92 /min Universi ty of [place] [facility] Body height 2022-11-19 21:01:00 157.5 cm Universi ty of [place] [facility] Body weight 2022-11-19 21:01:00 116.393 kg Universi ty of [place] [facility] BMI 2022-11-19 21:01:00 46.93 kg/m2 Universi ty of [place] [facility] Systolic blood 2022-11-15 00:51:00 139 mm[Hg] Univer sity of pressure [place] [facility] Diastolic blood 2022-11-15 00:51:00 67 mm[Hg] Unive rsity of pressure [place] [facility] Heart rate 2022-11-15 00:51:00 89 /min Universi ty of [place] [facility] Oxygen saturation in 2022-11-15 00:51:00 97 /min [facility] of Arterial blood by [place] [facility] Pulse oximetry Branch Body temperature 2022-11-14 23:07:00 36.67 [facility] ersity of [place] [facility] Respiratory rate 2022-11-14 23:07:00 18 /min Univ ersity of [place] [facility] Body height 2022-11-14 22:50:00 157.5 cm Universi ty of [place] [facility] Body weight 2022-11-14 22:50:00 116.121 kg Universi ty of [place] [facility] BMI 2022-11-14 22:50:00 46.82 kg/m2 Universi ty of [place] [facility] Systolic blood 2022-11-07 03:00:00 128 mm[Hg] Univer sity of pressure [place] [facility] Diastolic blood 2022-11-07 03:00:00 83 mm[Hg] Unive rsity of pressure [place] [facility] Heart rate 2022-11-07 03:00:00 92 /min Universi ty of [place] [facility] Respiratory rate 2022-11-07 03:00:00 18 /min Univ ersity of [place] [facility] Oxygen saturation in 2022-11-07 03:00:00 99 /min [facility] of Arterial blood by [place] [facility] Pulse oximetry Branch Body temperature 2022-11-07 00:12:00 36.56 [facility] ersity of [place] [facility] Body height 2022-11-07 00:05:00 157.5 cm Universi ty of [place] [facility] Body weight 2022-11-07 00:05:00 116.212 kg Universi ty of [place] [facility] BMI 2022-11-07 00:05:00 46.85 kg/m2 Universi ty of [place] [facility] Systolic blood 2022-11-06 18:20:00 119 mm[Hg] Univer sity of pressure [place] [facility] Diastolic blood 2022-11-06 18:20:00 75 mm[Hg] Unive rsity of pressure [place] [facility] Heart rate 2022-11-06 18:20:00 106 /min Universi ty of [place] [facility] Body temperature 2022-11-06 18:20:00 36.72 [facility] Univ ersity of [place] [facility] Respiratory rate 2022-11-06 18:20:00 18 /min Univ ersity of [place] [facility] Body height 2022-11-06 18:20:00 157.5 cm Universi ty of [place] [facility] Body weight 2022-11-06 18:20:00 114.125 kg Universi ty of [place] [facility] BMI 2022-11-06 18:20:00 46.02 kg/m2 Universi ty of [place] [facility] Systolic blood 2022-10-30 21:00:00 128 mm[Hg] Univer sity of pressure [place] [facility] Diastolic blood 2022-10-30 21:00:00 82 mm[Hg] Unive rsity of pressure [place] [facility] Heart rate 2022-10-30 21:00:00 92 /min Universi ty of [place] [facility] Body temperature 2022-10-30 21:00:00 36.5 [facility] ersity of [place] [facility] Respiratory rate 2022-10-30 21:00:00 18 /min Univ ersity of [place] [facility] Body height 2022-10-30 21:00:00 157.5 cm Universi ty of [place] [facility] Body weight 2022-10-30 21:00:00 115.214 kg Universi ty of [place] [facility] BMI 2022-10-30 21:00:00 46.46 kg/m2 Universi ty of [place] [facility] Systolic blood 2022-10-24 18:46:00 132 mm[Hg] Univer sity of pressure [place] [facility] Diastolic blood 2022-10-24 18:46:00 90 mm[Hg] Unive rsity of pressure [place] [facility] Heart rate 2022-10-24 18:46:00 91 /min Universi ty of [place] [facility] Body temperature 2022-10-24 18:46:00 36.61 [facility] ersity of [place] [facility] Respiratory rate 2022-10-24 18:46:00 18 /min Univ ersity of [place] [facility] Body weight 2022-10-24 18:46:00 115.304 kg [facility]i ty [facility] [place] [facility] BMI 2022-10-24 18:46:00 46.49 kg/m2 [facility]i ty [facility] [place] [facility] Systolic blood 2022-10-21 19:30:00 121 mm[Hg] Univer sity of pressure [place] [facility] Diastolic blood 2022-10-21 19:30:00 73 mm[Hg] Unive rsity of pressure [place] [facility] Heart rate 2022-10-21 19:30:00 91 /min Universi ty of [place] [facility] Respiratory rate 2022-10-21 19:30:00 16 /min Univ ersity of [facility] Oxygen saturation in 2022-10-21 19:30:00 98 /min [facility] of Arterial blood by [facility] Pulse oximetry Branch Body height 2022-10-21 15:15:00 157.5 cm Universi ty of [place] [facility] Body weight 2022-10-21 15:15:00 113.399 kg [facility]i ty [facility] [place] [facility] BMI 2022-10-21 15:15:00 45.73 kg/m2 [facility]i ty [facility] [place] [facility] Systolic blood 2022-10-09 19:14:00 115 mm[Hg] Univer sity of pressure [place] [facility] Diastolic blood 2022-10-09 19:14:00 75 mm[Hg] Unive rsity of pressure [place] [facility] Heart rate 2022-10-09 19:14:00 93 /min Universi ty of [place] [facility] Body temperature 2022-10-09 19:14:00 37.06 [facility] ersity of [place] [facility] Body height 2022-10-09 19:14:00 157.5 cm [facility]i ty [facility] [place] [facility] Body weight 2022-10-09 19:14:00 112.401 kg [facility]i ty [facility] [place] [facility] BMI 2022-10-09 19:14:00 45.32 kg/m2 [facility]i ty [facility] [place] [facility] Systolic blood 2022-09-26 19:43:00 105 mm[Hg] Univer sity of pressure [place] [facility] Diastolic blood 2022-09-26 19:43:00 73 mm[Hg] Unive rsity of pressure [place] [facility] Heart rate 2022-09-26 19:43:00 93 /min Universi ty of [place] [facility] Body temperature 2022-09-26 19:43:00 36.5 [facility] ers[facility] of [place] [facility] Body height 2022-09-26 19:43:00 157.5 cm [facility]i ty [facility] [place] [facility] Body weight 2022-09-26 19:43:00 111.403 kg [facility]i ty [facility] [place] [facility] BMI 2022-09-26 19:43:00 44.92 kg/m2 [facility]i ty [facility] [place] [facility] Heart rate 2022-08-08 22:30:00 88 /min Universi ty of [place] [facility] Oxygen saturation in 2022-08-08 22:30:00 100 /min University of Arterial blood by [facility] Pulse oximetry Branch Systolic blood 2022-08-08 19:53:00 120 mm[Hg] Univer sity of pressure [place] [facility] [place] Diastolic blood 2022-08-08 19:53:00 68 mm[Hg] Unive rsity of pressure [place] [facility] Body temperature 2022-08-08 19:53:00 36.56 [facility] ersity of [place] [facility] Respiratory rate 2022-08-08 19:53:00 18 /min Univ ersity of [place] [facility] Body height 2022-08-08 19:20:00 157.5 cm [facility]i ty [facility] [place] [facility] Body weight 2022-08-08 19:20:00 102.513 kg [facility]i ty [facility] [place] [facility] BMI 2022-08-08 19:20:00 41.34 kg/m2 [facility]i ty [facility] [place] [facility] Systolic blood 2022-08-02 16:07:00 109 mm[Hg] Univer sity of pressure [place] [facility] Diastolic blood 2022-08-02 16:07:00 67 mm[Hg] Unive rsity of pressure [place] [facility] Heart rate 2022-08-02 16:07:00 89 /min Universi ty [facility] [place] [facility] Body temperature 2022-08-02 16:07:00 35.83 [facility] ers[facility] of [place] [facility] Respiratory rate 2022-08-02 16:07:00 18 /min Univ ersity of [place] [facility] Body height 2022-08-02 16:07:00 157.5 cm Universi ty [facility] [place] [facility] Body weight 2022-08-02 16:07:00 98.476 kg [facility]i ty [facility] [place] [facility] BMI 2022-08-02 16:07:00 39.71 kg/m2 [facility]i ty [facility] [place] [facility] Systolic blood 2022-07-17 05:37:00 132 mm[Hg] [facility]iver [facility] Diastolic blood 2022-07-17 05:37:00 79 mm[Hg] Unive rsity [facility] Heart rate 2022-07-17 05:37:00 87 /min [facility] Body temperature 2022-07-17 05:37:00 36.83 Francisca [facility] Respiratory rate 2022-07-17 05:37:00 16 /min [facility] Body height 2022-07-17 05:37:00 157.5 cm [facility] Body weight 2022-07-17 05:37:00 95.709 kg [facility] BMI 2022-07-17 05:37:00 38.59 kg/m2 [facility] Oxygen saturation in 2022-07-17 05:37:00 100 /min University of Arterial blood by [employer] Pulse oximetry Branch Systolic blood 2022-07-05 16:18:00 122 mm[Hg] Univer [facility]ity [facility] Diastolic blood 2022-07-05 16:18:00 79 mm[Hg] Unive rs[facility] Body temperature 2022-07-05 16:18:00 35.67 Francisca [facility] Respiratory rate 2022-07-05 16:18:00 18 /min [facility] Body height 2022-07-05 16:18:00 274.3 cm [facility] Body weight 2022-07-05 16:18:00 93.033 kg [facility] BMI 2022-07-05 16:18:00 12.36 kg/m2 [facility] Heart rate 2022-06-25 06:00:00 85 /min [facility] Oxygen saturation in 2022-06-25 06:00:00 100 /min University of Arterial blood by [place] [facility] Pulse oximetry Branch Body height 2022-06-25 05:04:00 157.5 cm [facility] Body weight 2022-06-25 05:04:00 91.173 kg [facility] BMI 2022-06-25 05:04:00 36.76 kg/m2 [facility] Systolic blood 2022-06-25 05:00:00 107 mm[Hg] Univer [facility] Diastolic blood 2022-06-25 05:00:00 83 mm[Hg] Unive [facility] Systolic blood 2022-06-07 16:40:00 132 mm[Hg] [facility] Diastolic blood 2022-06-07 16:40:00 81 mm[Hg] [facility] Heart rate 2022-06-07 16:40:00 74 /min [facility] Body temperature 2022-06-07 16:40:00 36.56 Francisca [facility] Respiratory rate 2022-06-07 16:40:00 18 /min [facility] Body height 2022-06-07 16:40:00 157.5 cm [facility] Body weight 2022-06-07 16:40:00 90.436 kg [facility] BMI 2022-06-07 16:40:00 36.47 kg/m2 [facility] Systolic blood 2022-06-06 19:05:36 127 mm[Hg] [facility] Diastolic blood 2022-06-06 19:05:36 93 mm[Hg] [facility] Heart rate 2022-06-06 19:05:36 84 /min [facility] Respiratory rate 2022-06-06 19:05:36 22 /min [facility] Oxygen saturation in 2022-06-06 19:05:36 91 /min University of Arterial blood by [facility] Pulse oximetry Branch Body temperature 2022-06-06 17:00:00 36.72 Francisca [facility] Body height 2022-06-06 16:58:00 157.5 cm [facility] Body weight 2022-06-06 16:58:00 88.451 kg [facility] BMI 2022-06-06 16:58:00 35.67 kg/m2 [facility] Systolic blood 2022-05-10 16:21:00 109 mm[Hg] [facility] Diastolic blood 2022-05-10 16:21:00 81 mm[Hg] Un[facility] Heart rate 2022-05-10 16:21:00 93 /min [facility] Body temperature 2022-05-10 16:21:00 35.94 Francisca [facility] Respiratory rate 2022-05-10 16:21:00 17 /min [facility] Body height 2022-05-10 16:21:00 158.8 cm [facility] Body weight 2022-05-10 16:21:00 85.957 kg [facility] BMI 2022-05-10 16:21:00 34.11 kg/m2 [facility] Systolic blood 2022-05-10 16:00:00 109 mm[Hg] [facility] Diastolic blood 2022-05-10 16:00:00 81 mm[Hg] [facility]ive [facility] Heart rate 2022-05-10 16:00:00 93 /min [facility] Body temperature 2022-05-10 16:00:00 35.94 Francisca [facility] Respiratory rate 2022-05-10 16:00:00 17 /min [facility] Body height 2022-05-10 16:00:00 158.8 cm [facility] Body weight 2022-05-10 16:00:00 85.957 kg [facility] BMI 2022-05-10 16:00:00 34.11 kg/m2 [facility] Procedures Procedure Date / Time Performing Clinician Source Performed CBC WITH DIFF 2022-11-23 09:16:00 Jonn Vasquez [facility] CBC WITH DIFF 2022-11-23 09:16:00 Vasquez, [facility] SECTION 2022-11-22 12:13:00 Pedro [facility] POCT GLUCOSE (AUTOMATED) 2022-11-22 11:06:00 Pedro [facility] POCT GLUCOSE (AUTOMATED) 2022-11-22 11:06:00 Pedro [facility] NON-STRESS TEST 2022-11-22 08:12:07 Pedro [facility] CBC WITH DIFF 2022-11-21 20:00:00 Charmaine Edgar [facility] HB ABO GROUPING 2022-11-21 20:00:00 Pedro [facility] RHO (D) IMMUNE GLOBULIN 2022-11-21 20:00:00 Vasquez [facility] RHO (D) IMMUNE GLOBULIN 2022-11-21 20:00:00 Pedro [facility] CONSENT/REFUSAL FOR 2022-11-21 18:57:29 Doctor Unassigned, No Un [facility] DIAGNOSIS AND TREATMENT [facility] PATIENT QUESTIONNAIRE 2022-11-19 05:01:00 Doctor Unassigned, No [facility] POCT URINALYSIS W/O 2022-11-19 00:00:00 Charmaine Edgar Un [facility] SPECIFIC GRAVITY [facility] ADC ONLY - FERN TEST 2022-11-14 23:23:00 Abby Akbar [facility] POCT GLUCOSE (AUTOMATED) 2022-11-07 03:16:00 Odilia Price [facility] POCT GLUCOSE (AUTOMATED) 2022-11-07 02:00:00 Odilia Price [facility] SGOT (ASPARTATE AMINO 2022-11-07 01:25:00 Dorita Rojas [facility] TRANSFER) Medical Branch CREATININE 2022-11-07 01:25:00 Bob [facility] ALANINE AMINO 2022-11-07 01:25:00 Bob Critical access hospital TRANSFERASE(SGPT [facility] LACTATE DEHYDROGENASE 2022-11-07 01:25:00 Dorita Rojas [facility] URIC ACID 2022-11-07 01:25:00 Bob [facility] CBC WITH DIFF 2022-11-07 01:25:00 Bob [facility] URINALYSIS 2022-11-07 01:25:00 Bob [facility] PROTEIN CREAT RATIO 2022-11-07 01:25:00 Dorita Rojas [facility] URINE RANDOM [facility] POCT GLUCOSE (AUTOMATED) 2022-11-07 00:20:00 Sam Odilia Uni [facility] NON-STRESS TEST 2022-11-07 00:02:14 Adum, Abby Sierra [facility] POCT URINALYSIS W/O 2022-11-06 18:22:00 Adum, Abby Sierra [facility] CONSENT/REFUSAL FOR 2022-11-06 05:01:00 Doctor Unassigned, No Un [facility] DIAGNOSIS AND TREATMENT Name [facility] POCT URINALYSIS W/O 2022-10-30 00:00:00 Adum, Abby Sierra [facility] COMP. METABOLIC PANEL 2022-10-21 16:24:00 Charmaine Edgar [facility] ([id number]) [facility] CBC WITH DIFF 2022-10-21 16:24:00 Charmaine Edgar [facility] URINALYSIS 2022-10-21 16:22:00 Charmaine Edgar [facility] ADC CLC OR LCC ONLY - 2022-10-21 16:22:00 Supa Edgarsol [facility] WET PREP [facility] PROTEIN CREAT RATIO 2022-10-21 16:22:00 Charmaine Edgar [facility] URINE RANDOM [facility] ADC ONLY - FERN TEST 2022-10-21 16:01:00 [facility]OND [facility] THIRD 2022-10-11 19:34:00 AkinRimma trejo [facility] TRIMESTER ULTRASOUND Medical [facility] POCT URINALYSIS W/O 2022-10-09 00:00:00 Jonn Vasquez [facility] Medical [place] FLU VACC ([id number]), 6 2022-09-26 20:16:13 Jonn Vasquez [facility] MO-64 YRS, .5ML, IM, Medical [facility] QUAD (FLUCELVAX) TDAP VACCINE, >11 YRS, 2022-09-26 19:55:55 Jonn Vasquez [facility] Medical Branch POCT URINALYSIS W/O 2022-09-26 00:00:00 Jonn Vasquez [facility] ADC CLC OR LCC ONLY - 2022-08-08 21:52:00 Jonn Vasquez [facility] Branch URINALYSIS 2022-08-08 20:27:00 Jonn Vasquez [place] [facility] EMERGENCY DEPARTMENT 2022-08-08 06:01:00 Doctor Unassigned, No [facility] DOCUMENTS Name Medical Branch POCT URINALYSIS 2022-08-02 16:11:00 Rimma Bourne [facility] MISCELLANEOUS SENDOUT 2022-08-02 06:01:00 Doctor Unassigned, No [facility] TEST Name Medical Branch SECOND AND THIRD 2022-07-25 21:02:00 Rimma Bourne [facility] TRIMESTER ULTRASOUND Medical [facility] SECOND AND THIRD 2022-07-25 20:38:00 Rimma Bourne [facility] TRIMESTER ULTRASOUND Medical [facility] CONSENT/REFUSAL FOR 2022-07-17 05:13:28 Doctor Unassigned, No [facility] DIAGNOSIS AND TREATMENT Name Medical Branch POCT URINALYSIS 2022-07-05 16:22:00 Rimma Bourne [facility] ADC CLC OR LCC ONLY - 2022-06-25 05:21:00 Jonn Vasquez [facility] URINE CULTURE 2022-06-07 17:15:00 Rimma Bourne [facility] QUAD SCRN 2022-06-07 17:15:00 Rimma Bourne [facility] POCT URINALYSIS 2022-06-07 16:41:00 Rimma Bourne [facility] URINALYSIS 2022-06-06 17:29:00 [facility] XR CHEST 1 VW 2022-06-06 17:19:02 [facility] TROPONIN I 2022-06-06 17:07:00 [facility] COMP. METABOLIC PANEL 2022-06-06 17:07:00 Leo Simon [facility] ([id number]) [facility] CBC WITH DIFF 2022-06-06 17:07:00 [facility] POCT TEST 2022-05-10 00:00:00 Rimma [facility]ne [facility] POCT URINALYSIS W/O 2022-05-10 00:00:00 Rimma Bourne Uni versity of [facility] POCT TEST 2022-05-10 00:00:00 Rimma Bourne Uni versity of [facility] POCT URINALYSIS W/O 2022-05-10 00:00:00 Rimma Bourne Uni versity of [facility] ASSIGNMENT OF BENEFITS 2021-01-29 17:00:25 Doctor Unassigned, No [facility] Encounters Start End Encounter Admission Attending Care Care Encounter Source Date/Time Date/Time Type Type Clinicians Facility Department ID 2022-11-06 Outpatient P [facility] EST[facility] [id number] Univers 22:42:11 ity [facility] 2022-06-25 Outpatient P [facility] [id number] Univers 02:45:01 [facility] 2021-03-30 Emergency [facility] [id number] Univers 16:10:47 [facility] 2023-01-02 2023-01-02 Outpatient JONN PENNINGTON [facility] [id number] Univers 11:00:00 11:00:00 [facility] 2022-12-05 2022-12-05 Outpatient R JONN VASQUEZ [facility] [id number] Univers 10:30:00 10:30:00 ity of [facility] 2022-12-02 2022-12-02 It Operations Manager 2, Adc Lab [facility] 1.2.840.114 [id number] Univers 11:15:00 11:30:00 Visit Jonn Vasquez [place] 350.1.13.10 it[place] [id number] Nv dical NAL [address] [facility] 2022-12-02 2022-12-02 Outpatient R JONN VASQUEZ [facility] [id number] Univers 10:45:00 10:54:24 ity of [facility] 2022-12-02 2022-12-02 Routine [facility] 1.2.161.702 [id number] Univers 10:45:00 10:54:24 Cam [place] 350.1.13.10 ity of [place] [id number] Nv dical NAL 134 [facility] 2022-11-29 2022-11-29 Outpatient R JONN VASQUEZ [facility] [id number] Univers 15:00:00 16:21:54 ity of [facility] 2022-11-29 2022-11-29 Routine Merlyn-Efra, Charmaine [facility] 1.2. 840.114 [id number] Univers 15:00:00 16:21:54 Jonn Vasquez [place] 350.1.13.10 ity of [facility] [place] [id number] Nv dical NAL [address] [facility] 2022-11-29 2022-11-29 Telephone Jonn Vasquez [facility] 1.2.840.114 10 [id number] Univers 00:00:00 00:00:00 Cam [place] 350.1.13.10 i ty of [place] [id number] Nv dical NAL [address] [facility] 2022-11-262022-11-26 Outpatient R JONN VASQUEZ [facility] [id number] Univers 14:45:00 14:45:00 ity of [facility] 2022-11-22 2022-11-23 [facility] Jonn Vasquez [facility] 1.2.840.114 [id number] Univers 05:39:00 16:40:00 Encounter Lobo [place] 350.1.13.10 it[place] [id number] [facility] [address] [place] 2022-11-22 2022-11-22 Outpatient R JONN VASQUEZ [facility] [id number] Univers 10:00:00 10:00:00 ity of [facility] 2022-11-22 2022-11-22 Surgery [facility] 1.2.328.132 [id number] Univers 07:15:00 08:55:00 Lobo [place] 350.1.13.10 i ty of [place] [id number] [facility] [address] [place] 2022-11-21 2022-11-21 It Operations Manager Melo, [facility] Main [facility] 1.2.8 40.114 [id number] Univers 14:15:00 14:30:00 Visit Keith Gaviria 350.1.13.10 it[place] of [place] [id number] Nv dic[address] 2022-11-21 2022-11-21 Outpatient R JONN VASQUEZ [facility] [id number] Univers 13:00:00 13:44:12 ity of [facility] 2022-11-21 2022-11-21 Outpatient R JONN VASQUEZ [facility] [id number] Univers 13:00:00 13:44:12 ity [facility] 2022-11-21 2022-11-21 Routine Room, [facility] 1.2.840.1 14 [id number] Univers 13:00:00 13:44:12 Jonn Vasquez AMALIA 350.1.13.10 ity of [place] [id number] Nv dical NAL [address] [place] [address] 2022-11-21 2022-11-21 Orders Doctor GOLDEN 1.2.840.114 [id number] Univers 00:00:00 00:00:00 Only Unassigned, ROHAN 350.1.13.10 ity of [facility] 4.2.7.2.686 Germán as [id number] [address] 2022-11-20 2022-11-20 Telephone [facility] 1.2.840.114 [id number] Univers 00:00:00 00:00:00 sSupaCharmaine AMALIA 350.1.13.10 ity of [place] [id number] Nv dic[address] 2022-11-19 2022-11-19 Outpatient R ZULETA-EFRA [facility] [id number] Univers 15:45:00 16:50:54 ZULETA-DUNN, CHARMAINE ity of [facility] 2022-11-19 2022-11-19 Routine [facility] 1.2.840.114 10 [id number] Univers 15:45:00 16:00:00 sCharmaine 350.1.13.10 ity of [place] [id number] Nv dic[address] 2022-11-19 2022-11-19 Orders Doctor GOLDEN 1.2.840.114 [id number] Univers 00:00:00 00:00:00 Only Unassigned, ROHAN 350.1.13.10 ity of [facility] 4.2.7.2.686 Germán as [id number] [address] 2022-11-15 2022-11-15 Outpatient R [facility] [id number] Univers 10:00:00 10:00:00 ity of [facility] 2022-11-14 2022-11-14 Outpatient P ADUM, [facility] [id number] Univers 17:48:00 20:04:00 ABBY ity of [facility] 2022-11-14 2022-11-14 [facility] 1.2.840.114 [id number] Univers 17:48:00 20:04:00 Encounter Abby [place] 350.1.13.10 it[place] of [place] [id number] [facility] [address] [place] 2022-11-14 2022-11-14 Outpatient R [facility] [id number] Univers 11:00:00 11:00:00 ity of [facility] 2022-11-14 2022-11-14 Telephone [facility] 1.2.840.114 [id number] Univers 00:00:00 00:00:00 sCharmaine 350.1.13.10 ity [facility] [place] [id number] Nv dical NAL 134 [facility] 2022-11-14 2022-11-14 Telephone [facility] 1.2.840.114 [id number] Univers 00:00:00 00:00:00 sCharmaine 350.1.13.10 it[place] of [place] [id number] Nv dical NAL 134 [facility] 2022-11-11 2022-11-11 Outpatient R [facility] [id number] Univers 13:00:00 13:00:00 ity of [facility] 2022-11-06 2022-11-06 [facility] GOLDEN Price 1.2.840.114 [id number] Univers 18:57:00 22:20:00 Encounter Odilia MADRIGAL 350.1.13.10 ity of [facility] 4.2.7.2.686 Germán as [id number] [facility] [address] [place] 2022-11-06 2022-11-06 Outpatient P ODILIA PRICE [facility] [id number] Univers 18:57:00 22:20:00 ODILIA PRICE ity of [facility] 2022-11-06 2022-11-06 Routine Room, [facility] 1.2.840.1 14 [id number] Univers 13:00:00 14:36:45 Adum, Abby Mariela [place] 350.1.13.10 ity of [place] [id number] [address] 2022-11-06 2022-11-06 Outpatient R ADUM, [facility] [id number] Univers 13:00:00 14:36:45 ABBY ity [facility] 2022-11-06 2022-11-06 Telephone Jonn Vasquez [facility] 1.2.840.114 10 [id number] Univers 00:00:00 00:00:00 Lobo [place] 350.1.13.10 i ty of [place] [id number] [address] 2022-11-06 2022-11-06 Orders Doctor GOLDEN 1..840.114 [id number] Univers 00:00:00 00:00:00 Only Unassigned, ROHAN 350.1.13.10 ity of [place] [facility] 4.2.7.2.686 Germán as [id number] [address] 2022-10-30 2022-10-30 Outpatient R AD, [facility] [id number] Univers 15:45:00 17:07:17 ABBY itceleste [facility] 2022-10-30 2022-10-30 [facility] 1.2.840.114 [id number] Univers 15:45:00 17:07:17 Abby [place] 350.1.13.10 ity of [place] [id number] [address] 2022-10-24 2022-10-24 Outpatient R ADUM, [facility] [id number] Univers 13:00:00 13:32:07 ABBY ity [facility] 2022-10-24 2022-10-24 Nurse Nurse, [facility] 1.2.840.114 [id number] Univers 13:00:00 13:32:07 Visit Adum, Abby [place] 350.1.13.10 [place] of [place] [id number] Nv dical NAL 134 [facility] 2022-10-23 2022-10-23 Telephone Yumi Vasquezen [facility] 1.2.840.114 10 [id number] Univers 00:00:00 00:00:00 Lobo [place] 350.1.13.10 i ty of [place] [id number] Nv dical NAL 134 [facility] 2022-10-22 2022-10-22 Outpatient R PEDRO JONN [facility] [id number] Univers 08:30:00 11:52:49 ity of [facility] 2022-10-22 2022-10-22 It Operations Manager 2, Adc Lab [facility] 1.2.840.114 [id number] Univers 08:30:00 08:45:00 Visit Pedro Jonn [place] 350.1.13.10 ity [facility] [place] [id number] Nv dical NAL [address] [facility] 2022-10-21 2022-10-21 Outpatient P CHARMAINE EDGAR [facility] O BY [id number] Univers 10:06:00 15:20:00 SUPA EDGARSOL ity [facility] 2022-10-21 2022-10-21 [facility] 1.2.840.114 1 [id number] Univers 10:06:00 15:20:00 Encounter sCharmaine 350.1.13.10 ity [facility] [place] [id number] [facility] [address] [place] 2022-10-21 2022-10-21 Outpatient R JOHN EDGARL [facility] U TMB [id number] Univers 14:15:00 14:15:00 ZULETA-EFRA CHARMAINE ity [facility] 2022-10-21 2022-10-21 Telephone Yumi Vasquezen [facility] 1.2.840.114 10 [id number] Univers 00:00:00 00:00:00 Lobo APOORVATON 350.1.13.10 i ty of [place] [id number] Nv dical NAL 134 [facility] 2022-10-17 2022-10-17 Outpatient R JONN VASQUEZ [facility] [id number] Univers 09:30:00 10:49:40 ity of [facility] 2022-10-17 2022-10-17 It Operations Manager 2, Adc Lab [facility] 1.2.840.114 [id number] Univers 09:30:00 09:45:00 Visit Jonn Vasquez Lobo [facility] 350.1.13.10 ity of [place] [id number] [facility] [address] [facility] 2022-10-17 2022-10-17 Abstract [facility] 1.2.840.114 [id number] Univers 00:00:00 00:00:00 Rimma Davey SOCIAL SERVICE MANAGER 350.1.13.10 ity of [facility] 4.2.7.2.686 Germán as MATERNAL [id number] Med ical & CHILD [address] [place] [address] 2022-10-17 2022-10-17 Telephone Jonn Vasquez [facility] 1.2.840.114 10 [id number] Univers 00:00:00 00:00:00 Lobo APOORVAFILIBERTO 350.1.13.10 i ty of [place] [id number] Nv dical NAL 134 [facility] 2022-10-17 2022-10-17 Case Jonn Vasquez [facility] 1.2.806.497 [id number] Univers 00:00:00 00:00:00 Management Cam APOORVATON 350.1.13.10 ity of [place] [id number] Nv dical NAL 134 [facility] 2022-10-16 2022-10-16 Outpatient R SUZANNE [facility] [id number] Univers 16:30:00 16:30:00 NERY verde [facility] 2022-10-11 2022-10-11 Outpatient P ODILIA PRICE [facility] [id number] Univers 14:00:00 15:07:30 ODILIA PRICE ity of [facility] 2022-10-11 2022-10-11 It Operations Manager 3, [facility] Us Room UNIVERSIT 1 .2.840.114 [id number] Univers 14:00:00 15:07:30 Visit Odilia Price [facility] 350.1.13.10 ity of [place] [id number] [address] 2022-10-11 2022-10-11 Case [facility] 1.2.960.893 [id number] Univers 00:00:00 00:00:00 Management Cam [place] 350.1.13.10 ity of [place] [id number] Nv dic[address] 2022-10-11 2022-10-11 Telephone [facility] 1..840.114 10 [id number] Univers 00:00:00 00:00:00 Cam [place] 350.1.13.10 i ty of [place] [id number] [address] 2022-10-09 2022-10-09 Outpatient R JONN VASQUEZ [facility] [id number] Univers 14:15:00 15:00:09 ity of [facility] 2022-10-09 2022-10-09 Routine [facility] 1.2.837.049 [id number] Univers 14:15:00 15:00:09 Cam [place] [id number] ity of [place] [id number] [phone] [place] [address] 2022-10-07 2022-10-07 Telephone Jonn Vasquez [facility] [id number] Univers 00:00:00 00:00:00 Cam [place] [id number] i ty of [place] [id number] [phone] [place] dical N[place] [address] [place] [address] 2022-10-01 2022-10-01 Telephone Jonn Vasquez [facility] [id number] Univers 00:00:00 00:00:00 [place] [id number] i [facility] [id number] [phone] [place] dical N[place] [address] [place] [address] 2022-09-30 2022-09-30 Case Jonn Vasquez [facility] 1.2.975.205 [id number] Univers 00:00:00 00:00:00 Management Cam [place] 350.1.13.10 ity of [facility] [place].2.[place] [id number] [address] 2022-09-27 2022-09-27 Outpatient R [facility] [id number] Univers 09:00:00 09:00:00 ity of [facility] 2022-09-27 2022-09-27 Case Jonn Vasquez [facility] 1.2.276.672 [id number] Univers 00:00:00 00:00:00 Management Cam [place] 350.1.13.10 ity of [facility] [place].2.7.2.[place] [id number] [address] 2022-09-27 2022-09-27 Telephone [facility] 1.2.840.114 10 [id number] Univers 00:00:00 00:00:00 Rimma Davey [place] 350.1.13.10 ity of [facility] 4.2.7.2.[place] [id number] Nv dical NAL [address] [place] [address] 2022-09-26 2022-09-26 Outpatient R JONN VASQUEZ [facility] [id number] Univers 14:30:00 15:23:31 ity of [facility] 2022-09-26 2022-09-26 Initial Jonn Vasqeuz [facility] 1.2.906.570 [id number] Univers 14:30:00 15:23:31 Cam [place] 350.1.13.10 ity of Visit [facility] 4.2.7.2.[place] [phone] Nv dical NAL [address] [place] [address] 2022-09-20 2022-09-20 Telephone Jonn Vasquez [facility] 1.2.840.114 10 [id number] Univers 00:00:00 00:00:00 Lobo [facility] 350.1.13.10 i ty of [place].2.[place] [id number] Nv dical NAL [address] [place] [address] 2022-09-20 2022-09-20 Telephone [facility] 1.2.840.114 10 [id number] Univers 00:00:00 00:00:00 Rimma Petar SOCIAL SERVICE MANAGER 350.1.13.10 ity of [facility] 4.2.7.2.686 Germán as MATERNAL [id number] Med ical & CHILD 107 [facility] 2022-09-19 2022-09-19 Outpatient SFA [facility] [id number] 023 Dinh 16:45:50 16:45:50 0420 [address] [place] 2022-09-12 2022-09-12 Telephone Yumi Vasquezen [facility] 1.2.840.114 10 [id number] Univers 00:00:00 00:00:00 Lobo [place] 350.1.13.10 i ty of [place] 4.2.7.2.[place] [id number] [address] 2022-08-30 2022-08-30 Outpatient R TAYLA [facility] [id number] Univers 10:30:00 10:30:00 RIMMA verde o f [facility] 2022-08-29 2022-08-29 Abstract [facility] 1.2.840.114 101 [id number] Univers 00:00:00 00:00:00 Rimma Petar SOCIAL SERVICE MANAGER 350.1.13.10 ity of [facility] 4.2.7.2.686 Germán as MATERNAL [id number] Med ical & CHILD 107 [facility] 2022-08-28 2022-08-28 Outpatient P RADHA [facility] [id number] Univers 14:00:00 16:58:24 LINDA ity of [facility] 2022-08-28 2022-08-28 It Operations Manager Ultrasound, Dirk-olegario [facility] 1.2 .840.114 [id number] Univers 14:00:00 14:45:00 Visit Linda Kaur SOCIAL SERVICE MANAGER 350.1.13.10 ity of [facility] 4.2.7.2.686 Germán as MATERNAL [phone] Med ical & CHILD 369 [facility] 2022-08-16 2022-08-16 Outpatient R TAYLA [facility] [id number] Univers 12:45:00 12:45:00 RIMMA verde o f [facility] 2022-08-09 2022-08-09 Outpatient REESE LEIGH [id number] 023 Dinh 10:33:10 10:33:10 0310 F [place] 2022-08-09 2022-08-09 Telephone Leno [facility] 1.2.840.114 1 [id number] Univers 00:00:00 00:00:00 Valerie SPECIALTY 350.1.13.10 ity of [place] 4.2.7.2.686 [place] [id number] [facility] [address] 2022-08-08 2022-08-08 Outpatient X JONN VASQUEZ [facility] ESTEVAN [id number] Univers 13:24:00 17:35:00 ity of [facility] 2022-08-08 2022-08-08 Emergency Maria Teresa Garcia [facility] 1.2.8 40.114 [id number] Univers 13:24:00 17:35:00 Jonn Vasquez [facility] 350.1.13.10 ity [facility] 4.2.7.2.686 [place] [phone] [facility] [address] [place] 2022-08-02 2022-08-02 Telemedici Valerie Burr [facility] 1.2.8 40.114 [id number] Univers 11:15:00 11:15:00 ne Visit Rimma Bourne SOCIAL SERVICE MANAGER 350.1.13 .10 ity of Prosper Christiansen [facility] 4.2.7.2.686 [place] MATERNAL [phone] Med ical & CHILD [address] [place] [address] 2022-08-02 2022-08-02 Routine Akinpe, [facility] 1.2.403.432 [id number] Univers 10:45:00 10:45:00 Rimma Davey SOCIAL SERVICE MANAGER 350.1.13.10 ity of Visit REGIONAL 4.2.7.2.686 Germán as MATERNAL [id number] [facility] & CHILD 107 [facility] 2022-08-02 2022-08-02 Outpatient R AKINDARIUSPE, [facility] [id number] Univers 10:45:00 10:31:35 RIMMA verde o f [facility] 2022-08-02 2022-08-02 Orders Doctor GOLDEN 1.2.840.114 [id number] Univers 00:00:00 00:00:00 Only Unassigned, ROHAN 350.1.13.10 ity of [place] [facility] 4.2.7.2.686 Germán as [id number] [address] 2022-07-26 2022-07-26 Outpatient P [facility] [id number] Univers 09:45:00 09:45:00 ity [facility] 2022-07-25 2022-07-25 Outpatient P DAYDAY [facility] [id number] Univers 13:30:00 14:55:12 VERO it y of LILIANA Desouza [facility] 2022-07-25 2022-07-25 It Operations Manager [facility]tras[facility], [facility] 1.2 .840.114 [id number] Univers 13:30:00 14:55:12 Visit Liliana Bell SOCIAL SERVICE MANAGER 350.1. 13.10 ity of REGIONAL 4.2.7.2.686 Germán as MATERNAL [id number] [facility] & CHILD 369 [facility] 2022-07-19 2022-07-19 Outpatient P [facility] [id number] Univers 09:45:00 09:45:00 ity [facility] 2022-07-16 2022-07-16 Outpatient X ADUM, [facility] ESTEVAN [id number] Univers 23:24:00 23:54:00 ABBY ity [facility] 2022-07-16 2022-07-16 Emergency Adum, [facility] 1.2.103.915 [id number] Univers 23:24:00 23:54:00 Abbylanette [place] 350.1.13.10 ity [facility] 4.2.7.2.686 [facility] [id number] [address] 2022-07-12 2022-07-12 Outpatient P [facility] [id number] Univers 09:30:00 09:30:00 ity [facility] 2022-07-05 2022-07-05 Outpatient R AKINSIPE, [facility] [id number] Univers 10:45:00 10:52:28 RIMMA ity o f [facility] 2022-07-05 2022-07-05 [facility] 1.2.201.261 [id number] Univers 10:45:00 10:52:28 Rimma C SOCIAL SERVICE MANAGER 350.1.13.10 ity of Visit [facility] 4.2.7.2.686 Germán as MATERNAL [phone] Med ical & CHILD [address] [place] [address] 2022-06-24 2022-06-25 Outpatient P JONN VASQUEZ [facility] ESTEVAN [id number] Univers 22:44:00 01:20:00 ity [facility] 2022-06-24 2022-06-25 [facility] Jonn Vasquez [facility] 1.2.840.114 [id number] Univers 22:44:00 01:20:00 Encounter Lobo APO[place]VAFILIBERTO 350.1.13.10 ity [facility] 4.2.7.2.686 [facility] [id number] [address] 2022-06-07 2022-06-07 Outpatient R AKINSIPE, [facility] [id number] Univers 10:30:00 10:57:22 RIMMA ity o f [facility] 2022-06-07 2022-06-07 Routine [facility] 1.2.813.313 [id number] Univers 10:30:00 10:57:22 Rimma C SOCIAL SERVICE MANAGER 350.1.13.10 ity of Visit [facility] 4.2.7.2.686 Germán as MATERNAL [phone] Med ical & CHILD [address] [place] [address] 2022-06-06 2022-06-06 Emergency X [facility] ERT [id number] Univers 11:00:00 13:40:00 SIMON jordanceleste [facility] 2022-06-06 2022-06-06 Emergency [facility] 1.2.564.792 [id number] Univers 11:00:00 13:40:00 [facility] 350.1.13.10 i ty [facility] 4.2.7.2.686 [place] [facility] [phone] [address] 2022-05-23 2022-05-23 Telephone [facility] 1.2.840.114 [id number] Univers 00:00:00 00:00:00 Rimma C SOCIAL SERVICE MANAGER 350.1.13.10 ity of [facility] 4.2.7.2.686 Germán as MATERNAL [id number] [facility] ical & CHILD [address] [place] [address] 2022-05-14 2022-05-14 Case [facility] 1.2.840.114 [id number] Univers 00:00:00 00:00:00 Management Britney A SOCIAL SERVICE MANAGER 350.1.13.10 ity of [facility] 4.2.7.2.686 Germán as MATERNAL [id number] [facility] & CHILD [address] [place] [address] 2022-05-13 2022-05-13 Telephone [facility] 1.2.840.114 [id number] Univers 00:00:00 00:00:00 Rimma C SOCIAL SERVICE MANAGER 350.1.13.10 ity of [facility] 4.2.7.2.686 Germán as MATERNAL [id number] [facility] & CHILD [address] [place] [address] 2022-05-10 2022-05-10 Outpatient R TAYLA [facility] [id number] Univers 08:00:00 11:00:34 RIMMA verde o f [facility] 2022-05-10 2022-05-10 Initial [facility] 1.2.777.667 [id number] Univers 08:00:00 11:00:34 Rimma C SOCIAL SERVICE MANAGER 350.1.13.10 ity of Visit [facility] 4.2.7.2.686 Germán as MATERNAL [id number] [facility] & CHILD [address] [place] [address] 2022-05-10 2022-05-10 Initial Akinsipe, [facility] 1.2.547.972 [id number] Univers 10:00:00 10:30:00 Rimma C 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 SERVICE 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 350.1.13.10 ity of Visit [facility] 4.2.7.2.686 Germán as MATERNAL [id number] [facility] & CHILD [address] [place] [address] 2022-05-10 2022-05-10 Outpatient R TAYLA, [facility] [id number] Univers 10:00:00 10:00:00 RIMMA jordanceleste o [facility] 2022-05-10 2022-05-10 Outpatient R AKINSIPE, [facility] [id number] Univers 10:00:00 10:00:00 RIMMA jordanceleste o [facility] 2021-05-08 2021-05-08 Laboratory Only, Ang Db Test [facility] 1.2.8 40.114 [id number] Univers 10:32:34 10:47:34 Only Donnie Sullivanfawn [facility] 350.1.13.10 ity [facility] 4.2.7.2.686 Germán as SANDOR?BLEA [id number] [address] MEDICAL OFFICE [facility] 2021-05-08 2021-05-08 Outpatient R SHAINA [facility] [id number] Univers 10:45:00 10:45:00 RANIA ity [facility] 2021-05-08 2021-05-08 Letter Provider, [facility] 1.2.759.197 [id number] Univers 00:00:00 00:00:00 (Out) Ang Db HEALTH 350.1.13.10 it y of Urgent Care [place] 4.2.7.2.686 [place] SANDOR?BLEA [phone] [address] MEDICAL OFFICE [facility] 2021-03-22 2021-03-22 Laboratory Only, Ang Db Test [facility] 1.2.8 40.114 [id number] Univers 16:13:59 16:28:59 Only Denae [facility] 350.1.13.10 ity of [place] 4.2.7.2.686 Germán as Sandor?Blea [phone] [address] Medical Office [facility] 2021-03-22 2021-03-22 Outpatient R CHRIS [facility] [id number] Univers 16:15:00 16:15:00 DENAE ity of [facility] 2021-03-22 2021-03-22 Letter OnlyDirk [facility] 1.2.013.443 [id number] Univers 00:00:00 00:00:00 (Out) Db Test Health 350.1.13.10 it y of [place] 4.2.7.2.686 Germán as Sandor?Blea [phone] [address] Office [facility] 2021-01-30 2021-01-30 Patient Doctor GOLDEN 1.2.840.114 [id number] Univers 00:00:00 00:00:00 Secure Msg Unassjoey ROHAN 350.1.13.10 ity of [place] [facility] 4.2.7.2.686 Germán as [id number] [address] 2021-01-30 2021-01-30 Letter GOLDEN Grier 1.2.840.114 [id number] Univers 00:00:00 00:00:00 (Out) Neris Tate ROHAN 350.1.13.10 it y of [facility] 4.2.7.2.686 Germán as [id number] [address] 2021-01-29 2021-01-29 Laboratory Only, Dirk Db Test [facility] 1.2.8 40.114 [id number] Univers 12:00:28 12:10:28 Only Ralf [facility] 350.1.13.10 ity of [place] 4.2.7.2.686 Germán as Sandor?Blea [phone] [address] Medical Office [facility] 2021-01-29 2021-01-29 Outpatient R RALF [facility] [id number] Univers 11:40:00 11:40:00 DIANA ity of [facility] 2021-01-29 2021-01-29 Orders Doctor GOLDEN 1.2.840.114 [id number] Univers 00:00:00 00:00:00 Only Unassigned, ROHAN 350.1.13.10 ity of [place] [facility] 4.2.7.2.686 Germán as [id number] [address] 2020-12-05 2020-12-05 Outpatient R TAYLA, [facility] [id number] Univers 16:00:00 16:00:00 RIMMA verde o f [facility] 2020-07-05 2020-07-05 Outpatient R JOSETHE [facility] [id number] Univers 10:30:00 10:30:00 CHIRAG [facility] 2019-07-27 2019-07-27 Emergency X ELIE [facility] ERT [id number] Univers 00:54:33 03:55:00 AURE [facility] 2018-12-15 2018-12-15 Outpatient P JACKSON TAN [facility] [id number] Univers 10:30:00 11:22:45 JACKSON TAN [facility] 2018-11-03 2018-11-03 Outpatient P DAYDAY [facility] [id number] Univers 10:00:00 10:26:57 VERO ortega y of LILIANA Desouza [facility] Results Test Description Test Time Test Comments Results Result Comments Source CBC with Differential 2022-11-23 10:16:53 Test Item Value Reference Range Interpretation Comme nts WBC (test code = 6690-2) 8.55 See_Comment [A utomated message] The system which ge nerated this result transmit noemi reference range: 4.30 - 1 1.10 10*3/?L. The reference r shu was not used to interpr et this result as normal/abnor mal. RBC (test code = 789-8) 3.52 See_Comment L [Au tomated message] The system which [employer] nerated this result transmit noemi reference range: 3.93 - 5 .25 10*6/?L. The reference r shu was not used to interpr et this result as normal/abnor mal. HGB (test code = 718-7) 11.0 g/dL 11.6-15.0 L HCT (test code = 4544-3) 33.5 % 35.7-45.2 L MCV (test code = 787-2) 95.2 fL 80.6-95.5 MCH (test code = 785-6) 31.3 pg 25.9-32.8 MCHC (test code = 786-4) 32.8 g/dL 31.6-35.1 RDW-SD (test code = 82520-0) 42.5 fL 39.0-49.9 RDW-CV (test code = 788-0) 12.3 % 12.0-15.5 PLT (test code = 777-3) 220 See_Comment [Au tomated message] The system which ge nerated this result transmit noemi reference range: 166 - 35 8 10*3/?L. The reference range was not used to interpret th is result as normal/abnormal . MPV (test code = 51918-9) 9.8 fL 9.5-12.9 NRBC/100 WBC (test code = 0.0 See_Comment [ Automated message] The 3658570500) system which ge nerated this result transmit noemi reference range: 0.0 - 10 .0 /100 WBCs. The reference r shu was not used to interpr et this result as normal/abnor mal. NRBC x10^3 (test code = See_Comment [Au tomated message] The 8007727342) system which ge nerated this result transmit noemi reference range: 10*3/?L. The reference range was not u sed to interpret this result as normal/abnormal . GRAN MAT (NEUT) % (test code 72.1 % = 770-8) IMM GRAN % (test code = 0.40 % 6980989528) LYMPH % (test code = 736-9) 18.5 % MONO % (test code = 5905-5) 7.6 % EOS % (test code = 713-8) 0.9 % BASO % (test code = 706-2) 0.5 % GRAN MAT x10^3(ANC) (test 6.17 10*3/uL 1.88-7.09 code = 0742648314) IMM GRAN x10^3 (test code = 0.03 10*3/uL 0.00-0.06 9240866604) LYMPH x10^3 (test code = 1.58 10*3/uL 1.32-3.29 731-0) MONO x10^3 (test code = 0.65 10*3/uL 0.33-0.92 742-7) EOS x10^3 (test code = 0.08 10*3/uL 0.03-0.39 711-2) BASO x10^3 (test code = 0.04 10*3/uL 0.01-0.07 704-7) Lab Interpretation (test Abnormal code = 82695-7) [facility] with [id number] 10:16:53 Test Item Value Reference Range Interpretation Comments WBC (test code = 8.55 See_Comment [Automated 9090-2) message] The sy stem which generated this result transmitted reference range : 4.30 - 11.10 10*3/?L. The reference range was not used to interpret this result as normal/abnormal . RBC (test code = 3.52 See_Comment L [Automated 549-8) message] The sy stem which generated this result transmitted reference range : 3.93 - 5.25 10*6/?L. The reference range was not used to interpret this result as normal/abnormal . HGB (test code = 11.0 g/dL 11.6-15.0 L 718-7) HCT (test code = 33.5 % 35.7-45.2 L 4544-3) MCV (test code = 95.2 fL 80.6-95.5 787-2) MCH (test code = 31.3 pg 25.9-32.8 785-6) MCHC (test code = 32.8 g/dL 31.6-35.1 786-4) RDW-SD (test code = 42.5 fL 39.0-49.9 97749-6) RDW-CV (test code = 12.3 % 12.0-15.5 788-0) PLT (test code = 220 See_Comment [Automated 927-3) message] The sy stem which generated this result transmitted reference range : 166 - 358 10*3/ ?L. The reference r shu was not used to interpret this result as normal/abnormal . MPV (test code = 9.8 fL 9.5-12.9 73627-4) NRBC/100 WBC (test 0.0 See_Comment [Automat ed code = 1174283572) message] The system which generated this result transmitted reference range : 0.0 - 10.0 /100 WBCs. The refer ence range was not u sed to interpret th is result as normal/abnormal . NRBC x10^3 (test code See_Comment [Auto mated = 9722200429) message] The s ystem which generated this result transmitted reference range : 10*3/?L. The reference range was not used to interpret this result as normal/abnormal . GRAN MAT (NEUT) % 72.1 % (test code = 770-8) IMM GRAN % (test code 0.40 % = 9066245161) LYMPH % (test code = 18.5 % 736-9) MONO % (test code = 7.6 % 5905-5) EOS % (test code = 0.9 % 713-8) BASO % (test code = 0.5 % 706-2) GRAN MAT x10^3(ANC) 6.17 10*3/uL 1.88-7.09 (test code = 0500466261) IMM GRAN x10^3 (test 0.03 10*3/uL 0.00-0.06 code = 4242385582) LYMPH x10^3 (test code 1.58 10*3/uL 1.32-3.29 = 731-0) MONO x10^3 (test code 0.65 10*3/uL 0.33-0.92 = 742-7) EOS x10^3 (test code = 0.08 10*3/uL 0.03-0.39 711-2) BASO x10^3 (test code 0.04 10*3/uL 0.01-0.07 = 704-7) Lab Interpretation Abnormal (test code = 33432-4) [facility] I[facility]E [id number] 18:52:12 Test Item Value Reference Range Interpretation Comments RHIG CANDIDATE? No- see comment Patient i s not a (test code = candidate for R hIg- 5188) Patient is Rh Positive.Perfor med at [facility] Laboratory Services - [facility] Blood [address] [place] [address]Knhl Free: [phone] A No. [id number] [facility] IMMUNE [id number] 18:52:12 Test Item Value Reference Range Interpretation Comments RHIG CANDIDATE? No- see comment Patient i s not a (test code = candidate for R hIg- 5188) Patient is Rh Positive.Perfor med at [facility] Laboratory Services - [facility] Blood [address] [place], [place] [address]Toll Free: [phone] A No. [id number] [facility] GLUCOSE (AUTOMATED)2022-11-22 11:17:42 Test Item Value Reference Range Interpretation Comments POCT GLU (test code = 5579512559) 110 mg/dL 70-110 Lab Interpretation (test code = Normal 74803-8) [facility] GLUCOSE (AUTOMATED)2022-11-22 11:17:42 Test Item Value Reference Range Interpretation Comments POCT GLU (test code = 1343655797) 110 mg/dL 70-110 Lab Interpretation (test code = Normal 85330-6) [facility] WITH [id number] 20:21:15 Test Item Value Reference Range Interpretation Comments WBC (test code = 7.75 See_Comment [Automated 6690-2) message] The sy stem which generated this result transmitted reference range : 4.30 - 11.10 10*3/?L. The reference range was not used to interpret this result as normal/abnormal . RBC (test code = 3.55 See_Comment L [Automated 189-8) message] The sy stem which generated this result transmitted reference range : 3.93 - 5.25 10*6/?L. The reference range was not used to interpret this result as normal/abnormal . HGB (test code = 11.3 g/dL 11.6-15.0 L 718-7) HCT (test code = 33.1 % 35.7-45.2 L 4544-3) MCV (test code = 93.2 fL 80.6-95.5 787-2) MCH (test code = 31.8 pg 25.9-32.8 785-6) MCHC (test code = 34.1 g/dL 31.6-35.1 786-4) RDW-SD (test code = 42.9 fL 39.0-49.9 88434-7) RDW-CV (test code = 12.5 % 12.0-15.5 788-0) PLT (test code = 222 See_Comment [Automated 777-3) message] The sy stem which generated this result transmitted reference range : 166 - 358 10*3/ ?L. The reference r shu was not used to interpret this result as normal/abnormal . MPV (test code = 10.0 fL 9.5-12.9 11720-1) NRBC/100 WBC (test 0.0 See_Comment [Automat ed code = 7282435401) message] The system which generated this result transmitted reference range : 0.0 - 10.0 /100 WBCs. The refer ence range was not u sed to interpret th is result as normal/abnormal . NRBC x10^3 (test code See_Comment [Auto mated = 7198049820) message] The s ystem which generated this result transmitted reference range : 10*3/?L. The reference range was not used to interpret this result as normal/abnormal . GRAN MAT (NEUT) % 71.3 % (test code = 770-8) IMM GRAN % (test code 0.10 % = 5861971756) LYMPH % (test code = 20.4 % 736-9) MONO % (test code = 7.2 % 5905-5) EOS % (test code = 0.6 % 713-8) BASO % (test code = 0.4 % 706-2) GRAN MAT x10^3(ANC) 5.52 10*3/uL 1.88-7.09 (test code = 8830097047) IMM GRAN x10^3 (test 0.00-0.06 code = 1559002720) LYMPH x10^3 (test code 1.58 10*3/uL 1.32-3.29 = 731-0) MONO x10^3 (test code 0.56 10*3/uL 0.33-0.92 = 742-7) EOS x10^3 (test code = 0.05 10*3/uL 0.03-0.39 711-2) BASO x10^3 (test code 0.03 10*3/uL 0.01-0.07 = 704-7) Lab Interpretation Abnormal (test code = 50998-6) [facility] 20:01:00 Test Item Value Reference Range Interpretation Comments ABO & RH (test code = 20) B Positive IAT (test code = 1185) Negative [facility] URINALYSIS W/O SPECIFIC [id number] 21:06:00 Test Item Value Reference Range Interpretation Comments POCT PH U (test code = 3254) n/a 5-8 POCT U LEUK EST (test code = n/a Negative - Negative 3263) POCT U NIT (test code = 3262) n/a Negative - Negative POCT U PROT (test code = 3259) Negative Negative - Negative POCT U GLU (test code = 3256) Normal Negative - Negative POCT U KETONE (test code = 3258) n/a Negative - Negative POCT U BLD (test code = 3257) n/a Negative - Negative [facility] GLUCOSE (AUTOMATED)2022-11-07 03:17:55 Test Item Value Reference Range Interpretation Comments POCT GLU (test code = 3694055404) 164 mg/dL 70-110 H Lab Interpretation (test code = Abnormal 75152-5) [facility] [id number] 02:14:46 Test Item Value Reference Range Interpretation Comments URIC ACID (test code = 3628435040) 4.1 mg/dL 2.9-6.0 Lab Interpretation (test code = Normal 84224-0) [id number] 02:14:46 Test Item Value Reference Range Interpretation Comments CREATININE (test code = 0.44 mg/dL 0.50-1.04 L [id number]) eGFR (test code = 162.7 mL/min/1.73m2 [id number]) DEIDRA (test code = DEIDRA) Association of Glomerular Filtration Rate (GFR) and Staging of Kidney Disease* + --+ --+ ------+| GFR (mL/min/1.73 m2) ?| With Kidney Damage ?| ?Without Kidney Damage+ --------+ --------+ +| ?>90 ?| ?Stage one ?| ? Normal ?+ ---+ ---+ -------+| ?60-89 ?| ?Stage two ?| ? Decreased GFR ? + --+ --+ ------+| ?30-59 ?| ?Stage three ?| ? Stage three ? + --+ --+ ------+| ?15-29 ?| ?Stage four ? | ? Stage four ?+ ---+ ---+ -------+| ?<15 (or dialysis) ? ?| ?Stage five ? | ? Stage five ?+ ---+ ---+ -------+ *Each stage assumes the associated GFR level has been in effect for at least three months. ?Stages 1 to 5, with or without kidney disease, indicate chronic kidney disease. Notes: Determination of stages one and two (with eGFR >59mL/min/1.73 m2) requires estimation of kidney damage for at least three months as defined by structural or functional abnormalities of the kidney, manifested by either:Pathological abnormalities or Markers of kidney damage (including abnormalities in the composition of the blood or urine or abnormalities in imaging tests). Lab Interpretation Abnormal (test code = 92107-7) [facility] 02:14:46 Test Item Value Reference Range Interpretation Comments AST(SGOT) (test code = 1541007914) 16 U/L 13-40 Lab Interpretation (test code = Normal 42605-7) [facility] (SGPT)2022-11-07 02:14:46 Test Item Value Reference Range Interpretation Comments ALTv (test code = 1742-6) 15 U/L 5-35 Lab Interpretation (test code = Normal 48517-9) [facility] [id number] 02:13:05 Test Item Value Reference Range Interpretation Comments LDH (test code = 4616995315) 166 U/L 120-246 Lab Interpretation (test code = Normal 58455-5) [facility]2022-11-07 02:02:22 Test Item Value Reference Range Interpretation Comments POCT GLU (test code = 7466939356) 210 mg/dL 70-110 H Lab Interpretation (test code = Abnormal 92838-8) [facility] with [id number] 01:50:02 Test Item Value Reference Range Interpretation Comments WBC (test code = 8.89 See_Comment [Automated 6690-2) message] The sy stem which generated this result transmitted reference range : 4.30 - 11.10 10*3/?L. The reference range was not used to interpret this result as normal/abnormal . RBC (test code = 3.36 See_Comment L [Automated 789-8) message] The sy stem which generated this result transmitted reference range : 3.93 - 5.25 10*6/?L. The reference range was not used to interpret this result as normal/abnormal . HGB (test code = 10.8 g/dL 11.6-15.0 L 718-7) HCT (test code = 30.7 % 35.7-45.2 L 4544-3) MCV (test code = 91.4 fL 80.6-95.5 787-2) MCH (test code = 32.1 pg 25.9-32.8 785-6) MCHC (test code = 35.2 g/dL 31.6-35.1 H 786-4) RDW-SD (test code = 41.0 fL 39.0-49.9 94422-7) RDW-CV (test code = 12.3 % 12.0-15.5 788-0) PLT (test code = 237 See_Comment [Automated 777-3) message] The sy stem which generated this result transmitted reference range : 166 - 358 10*3/ ?L. The reference r shu was not used to interpret this result as normal/abnormal . MPV (test code = 9.3 fL 9.5-12.9 L 48637-3) NRBC/100 WBC (test 0.0 See_Comment [Automat ed code = 4442285698) message] The system which generated this result transmitted reference range : 0.0 - 10.0 /100 WBCs. The refer ence range was not u sed to interpret th is result as normal/abnormal . NRBC x10^3 (test code See_Comment [Auto mated = 1150343565) message] The s ystem which generated this result transmitted reference range : 10*3/?L. The reference range was not used to interpret this result as normal/abnormal . GRAN MAT (NEUT) % 72.2 % (test code = 770-8) IMM GRAN % (test code 0.30 % = 2281056201) LYMPH % (test code = 19.6 % 736-9) MONO % (test code = 7.1 % 5905-5) EOS % (test code = 0.6 % 713-8) BASO % (test code = 0.2 % 706-2) GRAN MAT x10^3(ANC) 6.42 10*3/uL 1.88-7.09 (test code = 9472058219) IMM GRAN x10^3 (test 0.03 10*3/uL 0.00-0.06 code = 7297109718) LYMPH x10^3 (test code 1.74 10*3/uL 1.32-3.29 = 731-0) MONO x10^3 (test code 0.63 10*3/uL 0.33-0.92 = 742-7) EOS x10^3 (test code = 0.05 10*3/uL 0.03-0.39 711-2) BASO x10^3 (test code 0.01-0.07 = 704-7) Lab Interpretation Abnormal (test code = 26760-0) [facility] GLUCOSE (AUTOMATED)2022-11-07 00:21:11 Test Item Value Reference Range Interpretation Comments POCT GLU (test code = 4247260984) 198 mg/dL 70-110 H Lab Interpretation (test code = Abnormal 76350-8) [facility] URINALYSIS W/O SPECIFIC [id number] 18:22:00 Test Item Value Reference Range Interpretation Comments POCT PH U (test code = na 5-8 3254) POCT U LEUK EST (test na Negative - code = 3263) Negative POCT U NIT (test code na Negative - = 3262) Negative POCT U PROT (test code negative Negative - = 3259) Negative POCT U GLU (test code negative Negative - = 3256) Negative POCT U KETONE (test na Negative - code = 3258) Negative POCT U BLD (test code na Negative - = 3257) Negative DEIDRA (test code = DEIDRA) accurate development and interpretation of all internal controls Lab Interpretation Normal (test code = 84707-8) [facility] URINALYSIS W/O SPECIFIC [id number] 18:22:00 Test Item Value Reference Range Interpretation Comments POCT PH U (test code = na 5-8 3254) POCT U LEUK EST (test na Negative - code = 3263) Negative POCT U NIT (test code na Negative - = 3262) Negative POCT U PROT (test code negative Negative - = 3259) Negative POCT U GLU (test code negative Negative - = 3256) Negative POCT U KETONE (test na Negative - code = 3258) Negative POCT U BLD (test code na Negative - = 3257) Negative DEIDRA (test code = DEIDRA) accurate development and interpretation of all internal controls Lab Interpretation Normal (test code = 94658-2) [facility] URINALYSIS W/O SPECIFIC [id number] 21:03:00 Test Item Value Reference Range Interpretation Comments POCT PH U (test code = 3254) n/a 5-8 POCT U LEUK EST (test code = n/a Negative - Negative 3263) POCT U NIT (test code = 3262) n/a Negative - Negative POCT U PROT (test code = 3259) Negative Negative - Negative POCT U GLU (test code = 3256) Negative Negative - Negative POCT U KETONE (test code = 3258) n/a Negative - Negative POCT U BLD (test code = 3257) n/a Negative - Negative [facility] URINALYSIS W/O SPECIFIC [id number] 21:03:00 Test Item Value Reference Range Interpretation Comments POCT PH U (test code = 3254) n/a 5-8 POCT U LEUK EST (test code = n/a Negative - Negative 3263) POCT U NIT (test code = 3262) n/a Negative - Negative POCT U PROT (test code = 3259) Negative Negative - Negative POCT U GLU (test code = 3256) Negative Negative - Negative POCT U KETONE (test code = 3258) n/a Negative - Negative POCT U BLD (test code = 3257) n/a Negative - Negative [facility] URINALYSIS W/O SPECIFIC [id number] 19:12:00 Test Item Value Reference Range Interpretation Comments POCT PH U (test code = 3254) 7 mg/dl 5-8 POCT U LEUK EST (test code = Negative Negative - Negative 3263) POCT U NIT (test code = 3262) Negative Negative - Negative POCT U PROT (test code = 3259) Negative Negative - Negative POCT U GLU (test code = 3256) Normal Negative - Negative POCT U KETONE (test code = 3258) negative Negative - Negative POCT U BLD (test code = 3257) Negative Negative - Negative [facility] URINALYSIS W/O SPECIFIC [id number] 19:51:00 Test Item Value Reference Range Interpretation Comments POCT PH U (test code = 3254) 6 mg/dl 5-8 POCT U LEUK EST (test code = Negative Negative - Negative 3263) POCT U NIT (test code = 3262) Negative Negative - Negative POCT U PROT (test code = 3259) Negative Negative - Negative POCT U GLU (test code = 3256) Normal Negative - Negative POCT U KETONE (test code = 3258) Negative Negative - Negative POCT U BLD (test code = 3257) Negative Negative - Negative [facility] URINALYSIS W SPECIFIC [id number] 16:12:00 Test Item Value Reference Range Interpretation [...] U APPEAR (test code = 3267) . [facility] URINALYSIS W SPECIFIC [id number] 16:12:00 Test Item Value Reference Range Interpretation [...] U APPEAR (test code = 3267) . [facility] URINALYSIS W SPECIFIC [id number] 16:22:00 Test Item Value Reference Range Interpretation [...] U APPEAR (test code = 3267) . [facility] [id number] 17:57:35 Test Item Value Reference Interpretation Comments Range RACE (test code = 7372550342) WEIGHT (test code = lbs 2299403640) GEST. AGE (test 16,1 code = 5066772021) INS. DEP (test code No = 7071044945) LMP (test code = 0488777504) US DATE (test code = 2108881965) PE DATE (test code = 8071026712) METHOD (test code = LMP 0325369890) MULT GEST (test No code = 7549729149) NTD HX (test code = No 2358974481) INITAL OR REPEAT Initial (test code = Testing 3878187958) SMOKER (test code = No 1750975218) RH (test code = 7458303255) INHIBIN (test code 110.5 pg/mL = 0968073745) AFP-MS (test code = 15.6 ng/mL 4596249587) ESTRIOL (test code 0.29 ng/mL = 6180518946) BHCG DOWNS (test mIU/mL code = 6908779464) AFP-MS MoM (test code = 4967940438) BHCG MoM (test code = 6911318117) INHIBIN MoM (test code = 2141504051) E3 MoM (test code = 1490127612) EQ AGE RSK (test equivalent to that of a code = 7238153464) 40.2 year old DS APR (test code = 1:289 6954940921) DS INTERP (test See Note The risk of Down code = 9469323332) syndrome is GREATER than the screen ing cut-off. If thegestational age is confirmed, coun selling regarding the r isks andbenefits of amniocentesis i s suggested. DS RSK (test code = ~ 1:94 The risk at 2117858311) mid-trimester i s approximately 1 :94 DS SCRN (test code Positive = 9795218478) TRISOMY 18 (test See Note These serum marker code = 4402060180) levels ar e not consistent with the pattern seen in Trisomy 18 pregnancies. Maternal serum screening will detectapproxima tely 60% of Trisomy 18 pregnancies. ES RSK (test code = ~ 1:376 The risk of Trisomy 18 7973849962) is approximatel y 1:376The Trisom y 18 cut-off is 1:45 ES SCRN (test code Negative = 2793045507) OSB INTERP (test See Note The materna l serum AFP code = 9688334756) result is NOT elevated for a of thisgestational age. The risk of an open neural tube def ect is less thanthe sc reening cut-off. OSB RSK (test code 1:67273 The risk of OSB is = 0070407599) equal to 1:117 00The OSB cut-off is 2.56 (1:104) OSB SCRN (test code Negative = 1764833846) INTERPRETATION P INTERPRETATIO N: SCREEN (test code = POSITIVE Follow -up for 6633736630) risk of Down sy ndrome is suggested [facility] URINALYSIS W SPECIFIC [id number] 16:41:00 Test Item Value Reference Range Interpretation [...] POCT U APPEAR (test code = 3267) [facility] URINALYSIS W/O SPECIFIC [id number] 16:25:00 Test Item Value Reference Range Interpretation [...] code = 3257) negative Negative - Negative [facility] [id number] 16:24:00 Test Item Value Reference Range Interpretation Comments POCT PREG (test code = 1605) Positive On board controls acceptable with C Yes Line (test code = 3574) POCT PREG LOT # (test code = 3575) POCT PREG TEST DATE (test code = 357) [facility] [id number] 16:04:00 Test Item Value Reference Range Interpretation [...] code = 3257) NEGATIVE Negative - Negative [facility] [id number] 16:03:00 Test Item Value Reference Range Interpretation Comments POCT PREG (test code = 1605) Positive On board controls acceptable with C Yes Line (test code = 3574) POCT PREG LOT # (test code = 3575) POCT PREG TEST DATE (test code = 3576) [facility]"
[2023-05-03] MEDS ORDERED: ACETAMINOPHEN 500 MG TAB ONE (15:36)
[2023-05-03] MEDS ORDERED: LIDOCAINE 1% MPF 30 ML VIAL ONE (16:26)
--- NOTE | 2023-05-03 16:27 | ER ---
Nurse's Notes [facility] Name: Angela Ramsey Age: 38 yrs Sex: Female : 1985 Arrival Date: 05/03/2023 Time: 14:37 Bed Treatment Private MD: Diagnosis: Cutaneous abscess of face Presentation: 05/03 15:03 Chief complaint: Patient states: abscess to right side of face. Coronavirus screen: At ld1 this time, the client does not indicate any symptoms associated with coronavirus-19. Ebola Screen: No symptoms or risks identified at this time. Initial Sepsis Screen: Does the patient meet any 2 criteria? No. Patient's initial sepsis screen is negative. Does the patient have a suspected source of infection? No. Patient's initial sepsis screen is negative. Risk Assessment: Do you want to hurt yourself or someone else? Patient reports no desire to harm self or others. Onset of symptoms was May 03, 2023. 15:03 Method Of Arrival: Ambulatory ld1 15:03 Acuity: SCOTTIE 4 ld1 Triage Assessment: 15:04 General: Appears in no apparent distress. comfortable, Behavior is calm, cooperative, ld1 appropriate for age. Pain: Complains of pain in right cheek Pain does not radiate. Pain currently is 9 out of 10 on a pain scale. Quality of pain is described as throbbing, Pain began suddenly, Is continuous. EENT: No signs and/or symptoms were reported regarding the EENT system. Neuro: Level of Consciousness is awake, alert, obeys commands, Oriented to person, place, time, situation. Cardiovascular: Capillary refill < 3 seconds Patient's skin is warm and dry. Respiratory: Airway is patent Respiratory effort is even, unlabored. Derm: Abscess located on right cheek. 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 - Social history:: Smoking status: Reported history of juuling and/or vaping. Patient/guardian denies using alcohol. Screenin:14 [facility] ED Fall Risk Assessment (Adult) History of falling in the last 3 months, cm10 including since admission No falls in past 3 months (0 pts) Confusion or Disorientation No (0 pts) Intoxicated or Sedated No (0 pts) Impaired Gait No (0 pts) Mobility Assist Device Used No (0 pt) Altered Elimination No (0 pt) Score/Fall Risk Level 0 - 2 = Low Risk Oriented to surroundings, Maintained a safe environment, Hourly rounding (assess needs \T\ fall precautionary measures) done. Abuse screen: Denies threats or abuse. Denies injuries from another. Nutritional screening: No deficits noted. Tuberculosis screening: No symptoms or risk factors identified. Assessment: 16:13 General: Appears in no apparent distress. comfortable, Behavior is calm, cooperative. cm10 Neuro: No deficits noted. Level of Consciousness is awake, alert, obeys commands, Oriented to person, place, time, situation. Cardiovascular: No deficits noted. Patient's skin is warm and dry. Respiratory: No deficits noted. Airway is patent Respiratory effort is even, unlabored, Respiratory pattern is regular, symmetrical. GI: No deficits noted. No signs and/or symptoms were reported involving the gastrointestinal system. : No deficits noted. No signs and/or symptoms were reported regarding the genitourinary system. EENT: No deficits noted. No signs and/or symptoms were reported regarding the EENT system. Derm: Abscess located on right cheek. Musculoskeletal: No deficits noted. No signs and/or symptoms reported regarding the musculoskeletal system. Range of motion: intact in all extremities. Vital Signs: 15:03 Pulse 77; Resp 18; Temp 98.3(TE); Pulse Ox 100% on R/A; Weight 99.79 kg; Height 5 ft. 3 ld1 in. ; Pain 9/10; 15:03 Body Mass Index 38.97 (99.79 kg, 160.02 cm) ld1 15:03 Pain Scale: Adult ld1 ED Course: 14:38 Patient arrived in ED. rg4 15:01 Gina Mojica FNP is [facility]. jh7 15:01 Fabian Werner MD is Attending Physician. jh7 15:03 Triage completed. ld1 15:04 Arm band placed on right wrist. ld1 15:17 Marie Hinojosa, SHAN is Primary Nurse. cm10 16:14 Patient has correct armband on for positive identification. Bed in low position. Call cm10 light in reach. Provided Education on: ER process and procedures. . Cardiac monitoring not applicable on this patient. 16:14 No provider procedures requiring assistance completed. Patient did not have IV access cm10 during this emergency room visit. 16:42 Dressings: Band aid x 1 right cheek. cm10 Administered Medications: 15:25 Drug: Acetaminophen PO 1000 mg PO once Route: PO; cm10 16:41 Follow up: Response: No adverse reaction cm10 16:30 Drug: Lidocaine Infiltration (1 %) 20 ml 20 ml Infiltration once; to bedside {Note: cm10 Given by provider..} Volume: 20 ml; Route: Infiltration; 16:38 Drug: Doxycycline PO 100 mg PO once Route: PO; cm10 16:41 Follow up: Response: No adverse reaction; Medication administered at discharge. cm10 Medication: 16:14 VIS not applicable for this client. cm10 Outcome: 16:27 Discharge ordered by MD. emery 16:41 Discharged to home ambulatory, with family, cm10 16:41 Condition: good 16:41 Discharge instructions given to patient, Instructed on discharge instructions, follow up and referral plans. medication usage, wound care, Demonstrated understanding of instructions, follow-up care, medications, wound care, Prescriptions given X 2, 16:42 Patient left the ED. cm10 Signatures: Zoey Cerda rg4 Ivis Reyes, RN RN ld1 Gina Mojica, MODERN AND CONTEMPORARY ART CURATOR MODERN AND CONTEMPORARY ART CURATOR 7 Marie Hinojosa RN RN cm10
--- NOTE | 2023-05-03 16:27 | EDPHYS ---
Physician Documentation [facility] Name: Angela Ramsey Age: 38 yrs Sex: Female : 1985 Arrival Date: 05/03/2023 Time: 14:37 Bed Treatment Private MD: NUBIA Physician Fabian Werner HPI: 05/03 15:03 This 38 yrs old Female presents to ER via Ambulatory with complaints of Abscess. jh7 15:03 The patient presents with an abscess of the right cheek. Description: The affected area jh7 is approximately 2 cm(s), localized, well demarcated, erythematous, fluctuant. Onset: The symptoms/episode began/occurred 2 week(s) ago. Possible cause(s): cyst. Associated signs and symptoms: Pertinent positives: erythema, Pertinent negatives: discharge, drainage, fever. 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 - Social history:: Smoking status: Reported history of juuling and/or vaping. Patient/guardian denies using alcohol. ROS: 15:03 Constitutional: Negative for fever, chills, and weight loss, Eyes: Negative for injury, jh7 pain, redness, and discharge, Neck: Negative for injury, pain, and swelling, Cardiovascular: Negative for chest pain, palpitations, and edema, Respiratory: Negative for shortness of breath, cough, wheezing, and pleuritic chest pain, Abdomen/GI: Negative for abdominal pain, nausea, vomiting, diarrhea, and constipation, Back: Negative for injury and pain, MS/Extremity: Negative for injury and deformity, Neuro: Negative for headache, weakness, numbness, tingling, and seizure, 15:03 Skin: Positive for abscess, 15:03 All other systems are negative, Exam: 15:03 Constitutional: This is a well developed, well nourished patient who is awake, alert, jh7 and in no acute distress. Head/Face: Normocephalic, atraumatic. Neck: Trachea midline, no thyromegaly or masses palpated, and no cervical lymphadenopathy. Supple, full range of motion without nuchal rigidity, or vertebral point tenderness. No Meningismus. Cardiovascular: Regular rate and rhythm with a normal S1 and S2. No gallops, murmurs, or rubs. Normal PMI, no JVD. No pulse deficits. Respiratory: Lungs have equal breath sounds bilaterally, clear to auscultation and percussion. No rales, rhonchi or wheezes noted. No increased work of breathing, no retractions or nasal flaring. Abdomen/GI: Soft, non-tender, with normal bowel sounds. No distension or tympany. No guarding or rebound. No evidence of tenderness throughout. MS/ Extremity: Pulses equal, no cyanosis. Neurovascular intact. Full, normal range of motion. Neuro: Awake and alert, GCS 15, oriented to person, place, time, and situation. Motor strength 5/5 in all extremities. Sensory grossly intact. Normal gait. 15:03 Skin: abscess, that is small, approximately 2 cm(s), of the right cheek, with drainage, with fluctuance, that is moderate, Vital Signs: 15:03 Pulse 77; Resp 18; Temp 98.3(TE); Pulse Ox 100% on R/A; Weight 99.79 kg; Height 5 ft. 3 ld1 in. ; Pain 9/10; 15:03 Body Mass Index 38.97 (99.79 kg, 160.02 cm) ld1 15:03 Pain Scale: Adult ld1 Procedures: 15:03 I \T\ D: Incision and drainage was performed for an abscess of the right cheek Prepped [facility] with Betadine, Anesthetized with 1 ml's 1% Lidocaine. Incised with 18 g needle. Drained moderate amount purulent fluid. Loculations removed. Dressing: sterile 4x4 gauze, the patient tolerated the procedure pt was unable to tolerate the lidocaine, so an 18g needle was used instead of a scalpel.. [facility]: 15:[address] [facility] 15:03 Differential diagnosis: abscess. Data reviewed: vital signs, nurses notes. I considered [facility] the following discharge prescriptions or medication management in the emergency department Medications were administered in the Emergency Department. See MAR. Historians other than the Patient: Parent: mom. Counseling: I had a detailed discussion with the patient and/or guardian regarding the historical points, exam findings, and any diagnostic results supporting the discharge/admit diagnosis, the need for outpatient follow up, a hearing care practitioner, to return to the emergency department if symptoms worsen or persist or if there are any questions or concerns that arise at home. Response to treatment: the patient's symptoms have mildly improved after treatment. Special discussion: Advised follow-up with either dermatology or general surgeon for cyst removal.. 05/03 15:08 Order name: Incision \T\ Drainage Setup; Complete Time: 15:27 jh7 05/03 16:25 Order name: Wound dressing; Complete Time: 16:38 jh7 Administered Medications: 15:25 Drug: Acetaminophen PO 1000 mg PO once Route: PO; cm10 16:41 Follow up: Response: No adverse reaction cm10 16:30 Drug: Lidocaine Infiltration (1 %) 20 ml 20 ml Infiltration once; to bedside {Note: cm10 Given by provider..} Volume: 20 ml; Route: Infiltration; 16:38 Drug: Doxycycline PO 100 mg PO once Route: PO; cm10 16:41 Follow up: Response: No adverse reaction; Medication administered at discharge. cm10 Disposition Summary: 05/03/23 16:27 Discharge Ordered Notes: Location: Home [facility] Problem: [facility] Symptoms: have improved [facility] Condition: Stable [facility] Diagnosis - Cutaneous abscess of face 7 Followup: [facility] - With: Private Physician - When: 2 - 3 days - Reason: Recheck today's complaints Discharge Instructions: - Discharge Summary Sheet [facility] - Skin Abscess 7 - Incision and Drainage [facility] Forms: - Medication Reconciliation Form [facility] - Thank You Letter [facility] - Antibiotic Education [facility] - Patient Portal Instructions [facility] - Leadership Thank You Letter [facility] Prescriptions: - mupirocin 2 % Topical ointment - apply 1 application TOPICAL route 3 times per day for 7 days; 22 gram; Refills: jh7 0, Product Selection Permitted - Doxycycline Hyclate 100 mg Oral tablet - take 1 tablet ORAL route every 12 hours for 7 days; 14 tablet; Refills: 0, jh7 Product Selection Permitted Signatures: Ivis Reyes, RN RN ld1 Gina Mojica FNP RAIL TRANSIT OPERATOR 7 Marie Hinojosa RN RN cm10
[2023-05-03 16:50] VITALS: TEMP 98.3; O2SAT 100
[2023-05-03] MEDS ORDERED: DOXYCYCLINE 100 MG CAP PO ONE (16:50)
== END 2023-05-03 16:42 | disposition home or self-care (01) ==
LOC: ER 14:37
PROC: 0H91XZZ Drainage of Face Skin, External Approach (ICD-10-PCS; principal; 2023-05-03)
DX: L02.01 Cutaneous abscess of face (principal); Z88.1 Allergy status to other antibiotic agents
CPT/HCPCS: 99283; 10060; J2001